=== PATIENT | male | born 1955 | race Caucasian/White ===

== ENCOUNTER 2024-03-16 08:35 | Day surgery (SDC) | payer MEDICARE, SELFPAY ==
[2024-03-16] VITALS (8 sets, daily range): BP systolic 96–151; BP diastolic 49–94; BMI 31.6
[2024-03-16] MEDS: NSS 283 ML IV (09:10)
--- NOTE | 2024-03-16 10:29 | ITS.CL.CATH ---
[facility] - Catheterization
Cardiac Catheterization
Procedure Report:
CARDIAC CATHETERIZATION REPORT
Date of Procedure: 03/16/2024
Referring: John Mckeon DO
Indication: Severe symptomatic aortic stenosis
HEMODYNAMIC DATA
AO: 100/64
LV: Not done
LEFT VENTRICULOGRAPHY: Not done
CORONARY ANGIOGRAPHY
Dominance: Right
Left Main: Normal
LAD: There is a patent proximal LAD stent (2010) with mild in-stent stenosis approximately 20-30% in severity. The remainder of the LAD system has trivial luminal disease
Circumflex: Trivial luminal irregularities
RCA: Large dominant mildly ectatic vessel with mild luminal irregularities
Closure Device: None-the procedure was performed via the right radial artery. The Jorge's test was normal prior to the procedure.
Radiation (mGy): 336
DAP (cm2.Gy): 33.1
Fluoroscopy time: 2.9 minutes
CONCLUSIONS
1: Known symptomatic severe aortic stenosis not invasively evaluated
2: Patent proximal LAD stent (2010) with mild residual CAD
3. AVR is recommended. This patient would be a candidate for SAVR or TAVR. He expressed in the office a desire to minimize the possibility of needing permanent pacemaker placement. His baseline ECG has bifascicular block and I suggested that the
likelihood of requiring a permanent pacemaker with TAVR are approaches 50% and is likely higher with this approach then with SAVR. He will see CT surgery to discuss treatment options.
Copy to: John Mckeon DO, Daniel Nick DO
Faustino Walker MD, [facility], [facility]
[2024-03-16] MEDS: NSS 1000 IV (11:11)
== END 2024-03-16 13:05 | disposition home or self-care (01) ==
LOC: CATH 08:35
PROVIDERS: ATTENDING PHYSICIAN Internal Medicine Cardiovascular Disease; CONSULT PHYSICIAN Thoracic Surgery (Cardiothoracic Vascular Surgery); FAMILY PHYSICIAN Student in an Organized Health Care Education/Training Program; OTHER PHYSICIAN Internal Medicine Cardiovascular Disease
DX: I35.0 Nonrheumatic aortic (valve) stenosis (principal); I25.10 Atherosclerotic heart disease of native coronary artery without angina pectoris; I48.0 Paroxysmal atrial fibrillation; I45.2 Bifascicular block; Z79.82 Long term (current) use of aspirin
CPT/HCPCS: 93005; 93454; C1894; Q9967

== ENCOUNTER 2024-04-28 05:09 | Inpatient (IN) | payer MEDICARE, SELFPAY ==
[2024-04-13 08:17] VITALS: BMI 32.8
[2024-04-13 09:02] LABS: % Basophils 0.7 % (0-2); % Eosinophils 6.3 % (0-6); % Immature Granulocytes 0.2 % (0-0.5); % Lymphocytes 35.2 % (20.5-51.1); % Neutrophils 48.6 % (42.2-75.2); Absolute Eosinophils 0.4 10^3/uL (0-0.7); Absolute Monocytes 0.5 10^3/uL (0.1-0.6); Absolute Neutrophils 2.7 10^3/uL (1.4-6.5); Hematocrit 38.7 % (39.0-52.0); Hemoglobin 14.2 g/dL (13.0-18.0); Mean Corp Hgb Conc. 36.7 g/dL (33.0-37.0); Mean Corpuscular Hgb 32.6 pg (27.0-31.0); Mean Corpuscular Volume 88.8 fL (80.0-94.0); Mean Platelet Volume 8.9 fL (7.4-10.4); Nucleated Red Blood Cells % 0 % (-); Platelet Count 193 10^3/uL (130-400); Red Blood Cell Count 4.36 10^6/uL (4.70-6.10); Red Cell Dist. Width 12.8 % (11.5-14.5); White Blood Cell Count 5.6 10^3/uL (4.8-10.8)
[2024-04-13 09:13] LABS: APTT 33.1 Sec (23.4-35.0); INR 1.02; PT 13.2 Sec (11.4-14.6)
[2024-04-13 09:31] LABS: Urine Albumin Negative (Neg - Trace); Urine Bilirubin Negative (Negative); Urine Character Clear (Clear); Urine Color Yellow; Urine Glucose Negative (Negative); Urine Ketone Negative (Negative); Urine Leukocyte Negative (Negative); Urine Nitrite Negative (Negative); Urine Occult Blood 3+ (Negative); Urine Specific Gravity 1.025 (<1.030); Urine Urobilinogen Negative (Neg - 1+)
[2024-04-13 10:08] LABS: Urine Urothelial Cell 0-2 /LPF (FEW)
[2024-04-13 10:09] LABS: Urine Bacteria Few (Negative); Urine Red Blood Cell 16-20 /HPF (0-2)
[2024-04-13 10:11] LABS: Glycohemoglobin (HgbA1c) 5.6 % (4.0-5.6)
--- NOTE | 2024-04-13 10:11 | CM ---
Chart reviewed. Met with the patient in PAT, reviewed preoperative and postoperative instructions and restrictions. Gave patient 2 soaps, along with showering guidelines. Patient is agreeable to a home visit by CT Transitional RN. Patient is
independent of ADLS, lives with his in a 1 S[address], 1 GABRIELA, 0 DME. Plan is for the patient to return home with CT Transitional RN.
[2024-04-13 12:14] LABS: ALT (SGPT) 29 U/L (0-50); AST (SGOT) 28 U/L (17-59); Albumin 4.4 g/dl (3.5-5.0); Alkaline Phosphatase 59 U/L (38-126); Blood Urea Nitrogen 17 mg/dl (9-20); Calcium 9.5 mg/dl (8.4-10.2); Carbon Dioxide 27 mmol/L (22-30); Chloride 106 mmol/L (98-107); Direct Bilirubin 0.2 mg/dl (0.0-0.4); Estimated Creatinine Clearance 83 ml/min; Glucose 108 mg/dl (70-99); Potassium 4.6 mmol/L (3.5-5.1); Sodium 139 mmol/L (135-145); Total Bilirubin 0.7 mg/dl (0.2-1.3); Total Protein 7.5 g/dl (6.3-8.2); eGFR > 60.00
[2024-04-28] VITALS (9 sets, daily range): BP systolic 95–126; BP diastolic 58–74; BMI 32.2
[2024-04-28] MEDS: MAGNESIUM OXIDE 500 MG PO (06:09)
[2024-04-28] MEDS: LOPRESSOR 25 MG PO (06:09)
[2024-04-28] MEDS: BACTROBAN 2% OINTMENT 1 APPLIC NASAL ×2 (06:09→20:37)
[2024-04-28] MEDS: PROTONIX 40 MG PO (06:09)
[2024-04-28 07:53] LABS: ACT+ - POC 93 Seconds (82-134)
[2024-04-28 08:31] LABS: Urine Albumin Trace (Neg - Trace); Urine Bilirubin Negative (Negative); Urine Character Clear (Clear); Urine Color Yellow; Urine Glucose Negative (Negative); Urine Ketone Negative (Negative); Urine Leukocyte Negative (Negative); Urine Nitrite Negative (Negative); Urine Occult Blood 4+ (Negative); Urine Specific Gravity 1.025 (<1.030); Urine Urobilinogen Negative (Neg - 1+)
--- NOTE | 2024-04-28 08:45 | CM ---
Patient in OR today.
Reviewed initial assessment. Pt. resides w/ spouse in a private, 1 story home. Functionally, patient is indep. w/ ADLs, mobility without any assisted device.
Antic. DC plan is for home w/ CT Transitional Care RN.
CM to follow.
[2024-04-28 09:15] LABS: Urine Mucus Moderate
[2024-04-28 09:17] LABS: Urine Amorphous Seen; Urine Red Blood Cell 26-30 /HPF (0-2); Urine Squamous Cell 0-2 /LPF (Few); Urine White Cell 0-2 /HPF (0-5)
[2024-04-28 10:05] LABS: ACT+ - POC 535 Seconds (82-134)
[2024-04-28 10:43] LABS: B.E. - POC 2.3 mmol/L; Glucose - POC 105 mg/dl (65-99); HCO3 - POC 28 mmol/L (21-29); Hematocrit - POC 36 % PCV (42-52); Hemodilution- POC No; Hemoglobin Calculated - POC 12.2; Ionized Calcium - POC 1.34 mmol/L (1.12-1.27); O2 Saturation %Calculated-POC 99.9 5 (92-96); PCO2 - POC 50 mmHg (35-45); PO2 - POC 364 mmHg (80-100); POC Comment PRE; Sodium - POC 144 mmol/L (135-145); pH - POC 7.37 (7.35-7.45)
[2024-04-28 10:54] LABS: ACT+ - POC 535 Seconds (82-134)
[2024-04-28 11:13] LABS: B.E. - POC 3.9 mmol/L; Glucose - POC 151 mg/dl (65-99); HCO3 - POC 28 mmol/L (21-29); Hematocrit - POC 28 % PCV (42-52); Hemodilution- POC Yes; Hemoglobin Calculated - POC 9.6; Ionized Calcium - POC 1.09 mmol/L (1.12-1.27); O2 Saturation %Calculated-POC 99.9 5 (92-96); PCO2 - POC 40 mmHg (35-45); PO2 - POC 265 mmHg (80-100); POC Comment CPB; Potassium - POC 5.4 mmol/L (3.6-5.0); Sodium - POC 140 mmol/L (135-145); pH - POC 7.45 (7.35-7.45)
[2024-04-28 11:22] LABS: ACT+ - POC 489 Seconds (82-134)
[2024-04-28 11:45] LABS: B.E. - POC 3.1 mmol/L; Glucose - POC 210 mg/dl (65-99); HCO3 - POC 28 mmol/L (21-29); Hematocrit - POC 28 % PCV (42-52); Hemodilution- POC Yes; Hemoglobin Calculated - POC 9.5; Ionized Calcium - POC 1.09 mmol/L (1.12-1.27); O2 Saturation %Calculated-POC 99.6 5 (92-96); PCO2 - POC 41 mmHg (35-45); PO2 - POC 173 mmHg (80-100); POC Comment CPB; Potassium - POC 5.7 mmol/L (3.6-5.0); Sodium - POC 140 mmol/L (135-145); pH - POC 7.44 (7.35-7.45)
[2024-04-28 12:01] LABS: ACT+ - POC 579 Seconds (82-134)
[2024-04-28 12:55] LABS: B.E. - POC 1.6 mmol/L; Glucose - POC 177 mg/dl (65-99); HCO3 - POC 27 mmol/L (21-29); Hematocrit - POC 32 % PCV (42-52); Hemodilution- POC Yes; Hemoglobin Calculated - POC 10.9; Ionized Calcium - POC 1.16 mmol/L (1.12-1.27); O2 Saturation %Calculated-POC 99.7 5 (92-96); PCO2 - POC 43 mmHg (35-45); PO2 - POC 195 mmHg (80-100); POC Comment CPB; Potassium - POC 4.1 mmol/L (3.6-5.0); Sodium - POC 143 mmol/L (135-145)
[2024-04-28 12:57] LABS: ACT+ - POC 112 Seconds (82-134)
[2024-04-28 13:25] LABS: B.E. - POC -1.4 mmol/L; Glucose - POC 91 mg/dl (65-99); HCO3 - POC 24 mmol/L (21-29); Hematocrit - POC 27 % PCV (42-52); Hemodilution- POC No; Hemoglobin Calculated - POC 9.2; Ionized Calcium - POC 1.49 mmol/L (1.12-1.27); PCO2 - POC 39 mmHg (35-45); PO2 - POC 492 mmHg (80-100); POC Comment POST; Potassium - POC 3.3 mmol/L (3.6-5.0); Sodium - POC 145 mmol/L (135-145); pH - POC 7.39 (7.35-7.45)
--- NOTE | 2024-04-28 13:32 | W.CVOR.SURPR ---
CVOR Surgeon Immed Pre Op
-
I have examined this patient prior to performance of the scheduled procedure.
The patient's condition is unchanged from the time of the dictated/written History and
Physical and the patient is able to undergo the scheduled procedure.
--- NOTE | 2024-04-28 13:33 | W.IMMPOSTOP ---
Addendum entered and electronically signed by Brandon Kemp MD 04/28/24 14:19:
[id number]
Original Note:
Surgical Immed Post Op Note
-
CARDIAC SURGERY OPERATIVE NOTE:
Preoperative Dx:
Severe aortic stenosis (P/M: 85/43, PRITESH 0.7)
Single vessel CAD w/ Hx of prior LAD stent
Hx of AF
Postoperative Dx:
Same
Procedures:
1) Median sternotomy
2) Takedown of MERCEDES (narrow pedicle)
3) CABG x 1 (MERCEDES-to-LAD)
4) ELAA (35mm AtriClip)
5) AVR (#23 Inspiris Resilia)
Surgeon:
Brandon Kemp M.D.
Assistants:
Mona ReedADuyen-Alexandro; healthcare administrative assistant throughout; closure
Mona BernardoADuyen-Alexandro; closure ([id number])
Perfusion:
Daniel Mckay, C.C.P.; CCx: 110min, CPB: 136min
Anesthesia:
Michael Bradshaw M.D. and Aston VázquezN.A.
Findings:
MERCEDES was good quality vessel w/ very brisk blood flow, ELD 2.5mm
LAD was visible on epicardial surface w/ serpentine course and scattered calcifications, ELD 2.85mm
ABRAHAM was small and of windsock morphology
AV functionally bicuspid w/ calcific fusion of non- and right- cusps, left cusp also w/ gugjjmuo-[id number]-jogeu calcifications, moderate annular extension of calcifications, no sig subvalvular calcifications
AVR w/ #23 Inspiris secured w/ 13 interrupted, pledgeted valve sutures and the CorKnots
Post-MICHELLE w/ normal biventricular function, well-seated AVR w/o PVL/AI, mean gradient 5mmHg under GA, ELAA confirmed
Implants:
[employer] INSPIRIS RESILIA 23mm valve; SN [id number]
AtriClip 35mm; LOT [id number]
Epicardial V-wires x 2
CT x 3 (left pleural, inferior mediastinal, superior mediastinal)
Sternal wires x 7
Sternal 'X' plate w/ 4 - 16mm and 4 - 14mm screws
Complications:
None
Transfusions:
None
Condition:
65 sinus w/ isoelectric STs. 120/75. 43/26. CVP: 22. 98%
GTTS: insulin 0.5, precedex 0.5, levophed 4
Stable/guarded to CVICU
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
[2024-04-28 14:11] LABS: Glucose - Point of Care 103 mg/dl (70-99)
[2024-04-28] MEDS: TYLENOL PO (14:16)
[2024-04-28] MEDS: ANCEF 10 IV ×2 (14:16)
[2024-04-28 14:17] LABS: Hematocrit 26.4 % (39.0-52.0); Hemoglobin 9.7 g/dL (13.0-18.0); Platelet Count 133 10^3/uL (130-400)
[2024-04-28] MEDS: NSS 500 IV (14:17)
[2024-04-28] MEDS: ALBUMIN 5% 250 IV (14:20)
[2024-04-28 14:21] LABS: HCO3 23.1 mmol/L (21-28); Ionized Calcium 1.23 mMOL/L (1.15-1.33); PCO2 40 mmHg (35-48); PO2 278 mmHg (83-108); Potassium 3.6 mMOL/L (3.5-5.1); Sodium 139 mMOL/L (136-145); pH 7.37 (7.35-7.45)
[2024-04-28 14:23] LABS: Mixed Venous O2 Saturation 74.2 %
[2024-04-28 14:30] LABS: INR 1.34; PT 16.6 Sec (11.4-14.6)
[2024-04-28 14:31] LABS: APTT 33.4 Sec (23.4-35.0)
[2024-04-28 14:37] LABS: Blood Urea Nitrogen 15 mg/dl (9-20); Estimated Creatinine Clearance 82 ml/min; Glucose 96 mg/dl (70-99); Magnesium 2.1 mg/dl (1.6-2.3)
[2024-04-28] MEDS: KCL 50 IV (14:56)
--- NOTE | 2024-04-28 15:00 | PTCARENOTE ---
pt received from CVOR @~1405, sedated on Precedex gtt, RASS -5. core temp 96.9F, bear hugger applied as ordered. pt SR w/ RBBB on the monitor, HR 60s. V wire in place, pacer box off per Dr. Kemp. SBP 70s on arrival to unit, Levophed gtt titrated
as ordered, Albumin x1 given as ordered. PAP 30s/10s, CVP ~11-14. CI 1.78. palpable pulses. pt mechanically ventilated, ETT #8.0, 23cm@lip. SIMV 14, TV 500, PEEP 5, PS 5, FIO2 60%. 100% POX. lungs coarse anteriorly, suctioned for moderate thin clear
secretions via ETT and orally. oral hygiene completed. CTx3, no air leak or crepitus noted. pt abdomen s/n, hypoactive BS. Oakley in place, clear yellow urine. Oakley care provided. sternal dressing c/d/i. chest tube site c/d/i. RIJ cordis/hectoran
maintained. L radial [place] flushed, zeroed, and calibrated. PIV. insulin gtt running per protocol. lab work drawn, EKG performed, CXR completed. see worklist for VS, I&O, and assessment.
[2024-04-28 15:10] LABS: Glucose - Point of Care 139 mg/dl (70-99)
[2024-04-28] MEDS: NEURONTIN PO (15:35)
[2024-04-28] MEDS: PACERONE PO ×2 (15:35→22:08)
[2024-04-28 16:00] LABS: Glucose - Point of Care 119 mg/dl (70-99)
[2024-04-28] MEDS: LIPITOR PO (16:27)
[2024-04-28 16:56] LABS: Glucose - Point of Care 104 mg/dl (70-99)
[2024-04-28] MEDS: ZOFRAN 4 MG IV (17:41)
[2024-04-28] MEDS: DILAUDID 0.5 MG IV (17:41)
--- NOTE | 2024-04-28 17:45 | PTCARENOTE ---
Addendum entered by Brianna Reyes RN 04/28/24 18:42:
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
Original Note:
pt able to nod appropriately, KIM, follow commands. CPOT 7, nods head yes to pain, received PRN Dilaudid 0.5mg IVP. pt nodded head yes to nausea, received PRN Zofran as ordered. oral hygiene performed.
[2024-04-28 17:56] LABS: Glucose - Point of Care 109 mg/dl (70-99)
--- NOTE | 2024-04-28 18:00 | W.PN.CD ---
Today's Communication / Plan
-
wean drips and vent
trend tele
Impression / Plan
-
69 yo male with CAD and aortic stenosis, prior paroxysmal A fib s/p PVI 2013 and no longer on OAC; admitted following CABG x1, bio-AVR, AtriClip today (04/28/24).
# CABG x1, bio-AVR, AtriClip today
-rhythm is sinus on EKG and tele, with RBBB
-MICHELLE: EF 60-65%
-cont ASA, plavix, statin, metoprolol
-wean drips and vent
# Paroxysmal A fib s/p PVI 2013
-not on OAC as outpatient
Physical Exam
Vital Signs/Labs
Vital Signs
Temp Pulse Resp BP Pulse Ox
98.1 F 68 14 103/63 98
04/28/24 17:00 04/28/24 17:00 04/28/24 17:00 04/28/24 16:00 04/28/24 17:00
04/27/24 04/28/24 04/29/24
06:59 06:59 06:59
Actual Weight 93.1 kg
04/28/24 13:57
PT 16.6 Sec (11.4-14.6) H 04/28/24 13:57
INR 1.34 04/28/24 13:57
APTT 33.4 Sec (23.4-35.0) 04/28/24 13:57
Magnesium 2.1 mg/dl (1.6-2.3) 04/28/24 13:57
Physical Exam
Constitutional: Other (intubated)
EENT: Moist mucous membranes
Cardiovascular: Rhythm & rate is regular, Pedal edema is absent, JVD pressure is normal and Systolic murmur absent
Respiratory: Other (mechanical ventilation)
Data Reviewed
-
Date of Service: April 28, 2024
EKG: Tracing Personally Visualized and interpreted (EKG: NSR, RBBB, left axis) and Other (Tele: SR 70s)
Echo: Report Reviewed by me
Labs: Labs Reviewed by me
[2024-04-28 18:19] LABS: Hematocrit 27.2 % (39.0-52.0); Platelet Count 153 10^3/uL (130-400)
[2024-04-28 19:02] LABS: Glucose - Point of Care 100 mg/dl (70-99)
--- NOTE | 2024-04-28 19:25 | PTCARENOTE ---
Received pt from jono RN. Pt intubated and sleepy. Pt able to open eyes and follow commands appropriately. Pt KIM. Pt SR w/ R BBB on the tele monitor. HR 70s. Temporary epicardial v-wire intact and connected to box with box turned OFF. BP
110s/70-70s. PAP 30s/teens. CVP 11-12. CI: 2.19 CO: 4.46 SVR: 1,004. Pt ETT #8, 22cm @ right lip. See worklist for full vent settings. Lung sounds audible throughout. POX 99-100%. Mediastinal CTx2 and left pleural CT intact and to -20 suction. No
air-leak or tidaling noted at this time. CT dressing CDI. Oakley catheter CDI and draining yellow urine. Hypoactive BS. Denies nausea at this time. Sternal Aquacel CDI. Right IJ cordis w/ swan CDI. Left radial a-line CDI. All lines leveled, zeroed,
and flushed. Levo infusing as ordered. Glycemic protocol followed. See worklist for fulling nursing assessment and interventions.
--- NOTE | 2024-04-28 19:30 | PTCARENOTE ---
Pt breathing over vent. Pt placed to CPAP by respiratory therapist. POX remains at 99%.
[2024-04-28 20:06] LABS: B.E. -2.7 mmol/L; HCO3 23.2 mmol/L (21-28); PCO2 44 mmHg (35-48); PO2 132 mmHg (83-108); Potassium 4.5 mMOL/L (3.5-5.1); pH 7.33 (7.35-7.45)
--- NOTE | 2024-04-28 20:25 | PTCARENOTE ---
Blood gas drawn and sent. Per CTPA - extubate pt. Pt extubated by respiratory therapy to 6 L NC. POX 100%. IS 1000. Pt AAOx3. VSS.
[2024-04-28] MEDS: LOW STRENGTH ASPIRIN 81 MG PO (20:37)
[2024-04-28] MEDS: ANCEF 5 IV (20:37)
[2024-04-28] MEDS: SENOKOT-S PO (20:38)
[2024-04-28 20:57] LABS: Glucose - Point of Care 121 mg/dl (70-99)
[2024-04-28] MEDS: DILAUDID 0.25 MG IV (21:07)
[2024-04-28] MEDS: NEURONTIN 100 MG PO (22:08)
[2024-04-28] MEDS: TYLENOL 1000 MG PO (22:08)
[2024-04-28 23:19] LABS: Glucose - Point of Care 116 mg/dl (70-99)
[2024-04-28] MEDS: FLEXERIL 5 MG PO (23:26)
[2024-04-29] VITALS (40 sets, daily range): BP systolic 75–137; BP diastolic 42–98; PULSE 71; O2SAT 98–99; BMI 33.1
[2024-04-29] MEDS: DILAUDID 0.5 MG IV (00:07)
--- NOTE | 2024-04-29 00:30 | PTCARENOTE ---
No acute changes in assessment. Pt SR w/ R BBB on the monitor. HR 70s. BP stable. Levo infusing as ordered. CI: 2.04. CO: 4.16. [place] and a-line maintained. All lines leveled, zeroed, and flushed. CTx3 intact, to -20 suction, no airleak/tidaling
noted, and output WNL. Sternal Aquacel CDI. Pt c/o pain - see NOV. Pt repositioned in bed. Glycemic protocol followed. Oakley catheter CDI and draining yellow urine. Call diaz within reach.
[2024-04-29 01:03] LABS: Glucose - Point of Care 108 mg/dl (70-99)
[2024-04-29 03:15] LABS: Glucose - Point of Care 103 mg/dl (70-99)
[2024-04-29 03:31] LABS: Hematocrit 25.8 % (39.0-52.0); Hemoglobin 9.5 g/dL (13.0-18.0); Mean Corp Hgb Conc. 36.8 g/dL (33.0-37.0); Mean Corpuscular Hgb 32.4 pg (27.0-31.0); Mean Corpuscular Volume 88.1 fL (80.0-94.0); Platelet Count 147 10^3/uL (130-400); Red Blood Cell Count 2.93 10^6/uL (4.70-6.10); Red Cell Dist. Width 12.9 % (11.5-14.5); White Blood Cell Count 13.1 10^3/uL (4.8-10.8)
[2024-04-29 03:59] LABS: Blood Urea Nitrogen 18 mg/dl (9-20); Calcium 8.5 mg/dl (8.4-10.2); Carbon Dioxide 26 mmol/L (22-30); Chloride 108 mmol/L (98-107); Estimated Creatinine Clearance 92 ml/min; Glucose 107 mg/dl (70-99); Magnesium 1.8 mg/dl (1.6-2.3); Potassium 4.4 mmol/L (3.5-5.1); Sodium 138 mmol/L (135-145); eGFR > 60.00
[2024-04-29] MEDS: ANCEF 5 IV ×2 (04:16→12:50)
[2024-04-29] MEDS: MAGNESIUM SULFATE 50 IV (04:30)
--- NOTE | 2024-04-29 04:37 | W.PN.CT ---
Addendum entered and electronically signed by Brandon Kemp MD 04/29/24 06:17:
I saw and examined the patient.
The PA's note was reviewed and I agree with the note.
Comment:
Doing well postop day 1 status post AVR, CABG x 1, and exclusion of left atrial appendage
Out of bed, I-S, ambulate later
Maintain chest tubes
De-line
DC Oakley
Original Note:
Today's Communication / Plan
-
-pod#1
-no significant issues overnight, had 5 beat NSVT (asymptomatic)
-CI 2.11, CO 4.30. Drips: Insulin only. Levo is off@ 3:30am
-CT output: 2 meds 150/430, L pleur 135/215 in 12/24 hrs
-deline
-d/c Oakley. Monitor UO (hx BPH)
-d/c insulin
-current meds (ASA, Plavix, Amio, Lipitor, Protonix). Hold BB while on Levo
-encourage IS, OOB
Assessment / Plan
-
- Severe / CAD - s/p AVR (#23 Inspiris Resilia); CABG x 1 (MERCEDES-to-LAD); ELAA (35mm AtriClip) on 04/28/[address] Kemp, pod #1
- Post-MICHELLE w/ normal biventricular function, well-seated AVR w/o PVL/AI, mean gradient 5mmHg under GA, ELAA confirmed
- CAD - s/p LAD stent 2010
- Paroxysmal a-fib - s/p ablation 2013
- Loop recorder
- Bifascicular block
- HTN/HLD
- DEE stenosis
- BPH
- Nephrolithiasis
- Gout
- Acute postop blood loss anemia - stable, no transfusion
- Acute postop atelectasis
Discussed patient care with: Nursing and Care Team
Subjective
Procedure
- s/p AVR (#23 Inspiris Resilia); CABG x 1 (MERCEDES-to-LAD); ELAA (35mm AtriClip) on 04/28/[address] Kemp
-
Date of Service: April 29, 2024
Objective Data
-
PT 16.6 Sec (11.4-14.6) H 04/28/24 13:57
INR 1.34 04/28/24 13:57
APTT 33.4 Sec (23.4-35.0) 04/28/24 13:57
Vital Signs
Vital Signs
Temp Pulse Resp BP Pulse Ox
98.8 F 77 16 112/71 100
04/29/24 01:00 04/29/24 01:00 04/29/24 01:00 04/29/24 01:00 04/29/24 01:00
CT Intake/Output/Weight
04/28/24 04/28/24 04/29/24
06:59 18:59 06:59
Intake Total 599.0 / 880.5 281.5 / 880.5
Output Total 630 / 1255 625 / 1255
Balance -31.0 / -374.5 -343.5 / -374.5
SaO2: 100
Physical Exam
-
General: Awake
Cardiovascular: Regular rate & rhythm, No Murmurs and No Rub
Respiratory: Decreased Breath Sounds
Sternum: Stable
Incision: Clean, Dry and Intact
Extremities: Edema +1 (DPs 1+ b/l)
Abdomen: soft, nondistended, nontender, + decreased BS
Data Reviewed
-
Lab Results: Results Reviewed
Medications: Active Meds Reviewed
Chest X-Ray: Report Reviewed and Image Reviewed
ECG: Report Reviewed and Image Reviewed
[2024-04-29 04:40] LABS: Hepatitis C Antibody Negative (Negative)
[2024-04-29] MEDS: TYLENOL 1000 MG PO ×3 (05:11→22:44)
[2024-04-29] MEDS: ROXICODONE 5 MG PO ×4 (05:11→20:27)
--- NOTE | 2024-04-29 05:48 | PTCARENOTE ---
Pt remains SR w/ R BBB on the tele monitor. HR 60-70s. BP stable. Levo titrated OFF. Pt on 2 L NC. POX 100%. CT assessment unchanged. Pt swan and a-lined DC'd per CTPA. Sternal Aquacel CDI. Glycemic protocol followed. See MAR for pain medication
administration. Call diaz within reach.
--- NOTE | 2024-04-29 07:45 | W.PN.ANS.POP ---
Anesthesia Post Operative
- Anesthesia Post Op Note
Vital Signs Stable-See Nursing Note: Yes
Airway Patent: Yes (2L/min NC)
Adequate Pain Control: Yes
Change in Mental Status: No
Current Postoperative Nausea & Vomiting: No
Anesthesia Complications: No
General Anesthetic Recall: No
Unplanned Admission: No
Post Op Hydration Adequate: Yes (tolerating POs)
--- NOTE | 2024-04-29 07:50 | W.PN.CD ---
Today's Communication / Plan
-
Looks absolutely fabulous POD#1 after AVR
Impression / Plan
-
69 yo male with CAD and aortic stenosis, prior paroxysmal A fib s/p PVI 2013 and no longer on OAC; admitted following CABG x1, bio-AVR, AtriClip today (04/28/24).
# CABG x1, bio-AVR, AtriClip 04-28
-rhythm is sinus on EKG and tele, with RBBB. So far no need for PPM which was very important in his decision to have SAVR as TAVR PPM risk 40+% (RBBB/LAHB)
-MICHELLE: EF 60-65%
-cont ASA, plavix, statin, metoprolol
-encouraged incentive spirometry
# Paroxysmal A fib s/p PVI 2013
-not on OAC as outpatient
Physical Exam
Vital Signs/Labs
Vital Signs
Temp Pulse Resp BP Pulse Ox
98 F 72 18 111/98 97
04/29/24 07:47 04/29/24 07:00 04/29/24 07:47 04/29/24 06:21 04/29/24 07:47
04/28/24 04/29/24 04/30/24
06:59 06:59 06:59
Actual Weight 205 lb 4.006 oz 210 lb 15.718 oz
04/29/24 03:14
04/29/24 03:14
PT 16.6 Sec (11.4-14.6) H 04/28/24 13:57
INR 1.34 04/28/24 13:57
APTT 33.4 Sec (23.4-35.0) 04/28/24 13:57
Magnesium 1.8 mg/dl (1.6-2.3) 04/29/24 03:14
Physical Exam
Constitutional: No acute distress and Comfortable
EENT: Anicteric
Cardiovascular: Rhythm & rate is regular, Systolic murmur absent, S1S2 is normal and Murmur/rub/gallop absent
Respiratory: Respiratory effort normal, Wheeze Absent, Crackles Absent and Rhonchi Present
GI: Soft and Non tender
Neuro/Psych: AO x 3 and Motor deficits absent
Data Reviewed
-
Date of Service: April 29, 2024
--- NOTE | 2024-04-29 08:00 | PTCARENOTE ---
pt received from previous RN, oriented x4, OOB in chair. SR w/ RBBB on the monitor, HR 60-70s. V wire in place, pacer box off per Dr. Kemp. SBP 100-110s. palpable pulses. pt on 2LNC, 97% POX. lungs clear, diminished in bases. IS encouraged. CTx3,
no air leak or crepitus noted. pt abdomen s/n, +BS. Oakley in place, clear yellow urine. Oakley care provided. Oakley dc'd as ordered. sternal dressing c/d/i. chest tube site c/d/i. RIJ cordis maintained. PIV. insulin gtt running per protocol. see
worklist for VS, I&O, and assessment.
[2024-04-29] MEDS: LOW STRENGTH ASPIRIN 81 MG PO (08:46)
[2024-04-29] MEDS: PLAVIX 75 MG PO (08:46)
[2024-04-29] MEDS: SENOKOT-S 1 TABLET PO ×2 (08:47→20:18)
[2024-04-29] MEDS: BACTROBAN 2% OINTMENT 1 APPLIC NASAL ×2 (08:47→20:17)
[2024-04-29] MEDS: FLEXERIL 5 MG PO (08:47)
[2024-04-29] MEDS: PROTONIX 40 MG PO (08:47)
[2024-04-29] MEDS: MAGNESIUM OXIDE 500 MG PO ×2 (08:47→20:17)
[2024-04-29] MEDS: NEURONTIN 100 MG PO ×3 (08:47→22:44)
[2024-04-29] MEDS: PACERONE 200 MG PO ×3 (08:50→23:02)
[2024-04-29] MEDS: LIDOCAINE 4% PATCH 1 PATCH TOPICAL (08:50)
[2024-04-29 08:57] LABS: Glucose - Point of Care 115 mg/dl (70-99)
[2024-04-29 08:57] LABS: Glucose - Point of Care 101 mg/dl (70-99)
[2024-04-29 09:00] LABS: Glucose - Point of Care 93 mg/dl (70-99)
--- NOTE | 2024-04-29 09:39 | W.PN.INTV ---
Today's Communication / Plan
Recommendations
Up OOB as tolerated
Pain control
Wean off insulin drip
Maintain BG goal 140�180
MAP >65
Keep K>4, Mg>[address] chest in 1 year for small pulmonary nodules - he will go through his PCP for this. [facility] pulmonary office information told to the patient in case he does want to see us instead.
Insulin drip currently being weaned off with plans to stop this afternoon. Once off insulin drip, he will be transferred to CVICU�telemetry status. Once transferred then we will sign off. Please re-consult if there are any additional
questions/concerns, or if patient's respiratory status deteriorates.
Assessment
-
Assessment: 69-year-old male non-smoker with a past medical history of CAD s/p stent to LAD (2010), gout, hypercholesterolemia, history of A-fib s/p PVI (2013), severe aortic stenosis, right carotid artery stenosis, bifascicular block, BPH,
nephrolithiasis, and indigestion who presents with elective SAVR + CABG. Patient known to cardiothoracic surgery with Dr. Kemp, last office visit on 03/23/2024. He has known severe aortic stenosis with in-stent stenosis of his proximal LAD stent.
Surgical revascularization + CABG was reviewed including its risks and benefits. Patient agreed to intervention. Today he underwent CABG x 1 with MERCEDES to LAD, AVR with #23 Inspiris Resilia + left atrial appendage exclusion. There were no
complications. And he was transferred to the ICU hemodynamically stable with BP 120/75 on Levophed at 4mcg/min. Critical care services consulted for additional management/recommendations.
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
hypertension, nephrolithiasis, BPH
Impression:
#Severe aortic stenosis s/p surgical aortic valve replacement (POD #1)
#Single-vessel CAD with in-stent restenosis of prior LAD stent s/p CABG x 1 (POD#1)
#History of atrial fibrillation s/p left atrial appendage exclusion using 35mm AtriClip (POD #1)
#Bifascicular block
#Multiple tiny pulmonary nodules in RLL + LLL with scarring seen in the medial right lower lobe
#Right carotid artery stenosis
#Hypertension
#BPH
Plan:
Patient successfully extubated to nasal cannula on the evening of 04/28
Continue with supplemental oxygen and titrate to maintain SpO2 >90-94%
prn nebulized bronchodilators
Removal of R-IJ cordis per CT surgery
Maintain MAP>65
Replete electrolytes with K>4, Mg>2
Monitor chest tube output (left pleural + mediastinal chest tubes x 2)
Monitor hemoglobin
Monitor platelet count and coags
Transfuse blood product if needed to maintain Hb>7g/dL, plt>50k (given post-operative status)
CT surgery managing chest tubes
Monitor blood sugar to maintain euglycemia with goal BG 140-180
Insulin drip per protocol --> plan to be stopped this afternoon
Aspiration precautions
Pain control
DVT prophylaxis
Early nutrition
Early mobilization
He has a very small 2 mm posteromedial RLL nodule (radiologist says calcified granuloma however it measures -254 HU, and also small 2 mm lateral nodule seen in the LLL. He does not have a history of tobacco use (does endorse 2nd hand smoke exposure
from both his parents), he denies a personal history of malignancy; mother had lung cancer, but she was a smoker. Can consider repeat CT chest in 1 year - he will have his PCP follow up on this. I offered to have us see him in the [facility] office - he
would rather have his PCP follow this up.
Insulin drip currently being weaned off with plans to stop this afternoon. Once off insulin drip, he will be transferred to CVICU�telemetry status. Once transferred then we will sign off. Thank you for allowing us to be involved in the care of
this patient. Please re-consult if there are any additional questions/concerns, or if patient's respiratory status deteriorates.
Total time spent today was 75 minutes for this encounter. Time includes reviewing laboratory test/imaging results, reviewing pertinent medical records, obtaining and reviewing medical history, performing an appropriate exam, ordering medications,
tests and procedures. Time also includes documentation of this encounter, coordinating patient care and communicating with other healthcare professionals. Total time does not include separately billed tests performed on this date of service.
Subjective Dataa
Subjective Data
Date of Service:
Date of Service: April 29, 2024
Chief Complaint: Waste Duster Follow Up and Pulmonary Follow Up
Subjective:
Seen and evaluated today at bedside. Resting comfortably in chair, currently on 2 L/min nasal cannula saturating 99%. Heart rate 70 and BP 111/65. Currently on insulin drip at 0.6 units/hr. Left pleural chest tube + mediastinal chest tubes x [address] He feels well, has some post-operative chest pain but it is not worsening. Denies SOB, ALICIA, abdominal pain, nausea, vomiting, fevers or chills.
Review of Systems
General: Other (Negative unless mentioned above)
Objective Data
Data Reviewed
Vital Signs / I&O / Oxygen:
Vital Signs
Temp Pulse Resp BP Pulse Ox
98 F 77 16 137/73 97
04/29/24 07:47 04/29/24 09:00 04/29/24 09:00 04/29/24 09:00 04/29/24 09:00
Intake and Output
04/28/24 04/29/24 04/30/24
06:59 06:59 06:59
Intake Total 1049.7 / 1061.0 35.9 / 35.9
Output Total 1695 / 1750 125 / 125
Balance -645.3 / -689.0 -89.1 / -89.1
SaO2 [CPAP/PSV] 99
SaO2 [SIMV] 99
SaO2 97
Nasal Cannula flow liters per 2
minute
Physical Exam
General: Respiratory Distress (negative), Comfortable, Chills (negative) and Sweats (negative)
HEENT: Normocephalic, Anicteric and Moist Mucous Membranes
Cardiovascular: S1-S2 and Peripheral Edema (Trace lower extremity edema bilaterally)
Respiratory: Wheeze (negative), Crackles (negative), Rhonchi (negative) and Non-Labored Respirations
GI: Soft, Non Distended, Non Tender and Normal Bowel Sounds
Neurology: AO x 3 and Tremors (negative)
Skin: Warm, Dry, Cyanosis (negative) and Jaundice (negative)
Labs/Micro/Reports
Lab Data
04/29/24 03:14
04/29/24 03:14
Laboratory Results
04/28/24 04/28/24
13:57 20:00
PT 16.6 H
INR 1.34
APTT 33.4
pH 7.37 7.33 L
pCO2 40 44
pO2 278 H 132 H
HCO3 23.1 23.2
O2 Delivery Level
[2024-04-29 11:16] LABS: Glucose - Point of Care 114 mg/dl (70-99)
[2024-04-29] MEDS: CORDARONE 103 MG IV ×3 (12:50→20:06)
[2024-04-29] MEDS: TORADOL 15 MG IV ×2 (13:00→20:16)
--- NOTE | 2024-04-29 13:00 | PTCARENOTE ---
pt VSS, pt went into afib @1232, HR 80s-120s. pt denies lightheadedness or dizziness, +palpitations. 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 Amio bolus and gtt administered as ordered. Toradol given as ordered for pain.
[2024-04-29 13:07] LABS: Glucose - Point of Care 122 mg/dl (70-99)
[2024-04-29] MEDS: NSS IV (13:11)
[2024-04-29] MEDS: CORDARONE 518 MG IV (13:17)
[2024-04-29 14:09] LABS: Glucose - Point of Care 112 mg/dl (70-99)
--- NOTE | 2024-04-29 15:41 | CM ---
CM following for DC planning needs.
Patient POD#[address] Surg[address]
DC plan remains for home w/ CT Transitional Care RN.
CM to follow.
--- NOTE | 2024-04-29 16:30 | PTCARENOTE ---
pt VSS, no changes in assessment. resting in bed between care. Roxicodone 5mg PO given for pain. at bedside. 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 no urge to void.
[2024-04-29] MEDS: LIPITOR 80 MG PO (17:29)
[2024-04-29] MEDS: LOPRESSOR 25 MG PO (18:04)
[2024-04-29] MEDS: FLOMAX 0.4 MG PO (18:05)
--- NOTE | 2024-04-29 18:30 | PTCARENOTE ---
Amiodarone bolus given as ordered. Metoprolol PO and Flomax given as ordered. pt OOB to chair w/ assist. oral hygiene performed, face washed.
--- NOTE | 2024-04-29 19:30 | PTCARENOTE ---
Received pt from [facility]; pt is AAOx4; sinus tachycardia with brief episode of A-fib, HR 120's, b/p's 97/60, v-wires not pacing, + pulse, +1 generalized edema, lungs clear, diminished in bases, 2 medial C/T's, 1 pleural, dressing C/D/I; pt due to
void, - n/v; sternal incision dressing C/D/I, Cordis KVO, pt back to bed, resting.
[2024-04-29] MEDS: ALBUMIN 5% 250 IV (21:21)
[2024-04-29] MEDS: LANOXIN 500 MCG IV (23:03)
[2024-04-30] VITALS (38 sets, daily range): BP systolic 81–128; BP diastolic 54–86; PULSE 98; O2SAT 93–95; BMI 33.8
[2024-04-30] MEDS: LOPRESSOR 2.5 MG IV (01:05)
--- NOTE | 2024-04-30 01:15 | PTCARENOTE ---
pt AAOx3, no neurological deficits noted; Sinus Tach, HR 120's, Lanoxin 500 mcg IV now, given without difficulty per PA order, HR remains in 120's, Lopressor 2.5mg IV now, Pt resting in bed without difficulty,
[2024-04-30] MEDS: TORADOL IV (02:00)
[2024-04-30] MEDS: LANOXIN 250 MCG IV (03:18)
[2024-04-30 03:45] LABS: Hematocrit 23.8 % (39.0-52.0); Hemoglobin 8.7 g/dL (13.0-18.0); Mean Corp Hgb Conc. 36.6 g/dL (33.0-37.0); Mean Corpuscular Volume 90.2 fL (80.0-94.0); Mean Platelet Volume 9.4 fL (7.4-10.4); Platelet Count 110 10^3/uL (130-400); Red Blood Cell Count 2.64 10^6/uL (4.70-6.10); White Blood Cell Count 10.9 10^3/uL (4.8-10.8)
[2024-04-30 03:55] LABS: Blood Urea Nitrogen 31 mg/dl (9-20); Calcium 7.9 mg/dl (8.4-10.2); Carbon Dioxide 26 mmol/L (22-30); Chloride 99 mmol/L (98-107); Estimated Creatinine Clearance 53 ml/min; Glucose 156 mg/dl (70-99); Magnesium 2.2 mg/dl (1.6-2.3); Potassium 4.8 mmol/L (3.5-5.1); Sodium 134 mmol/L (135-145); eGFR 53.74
--- NOTE | 2024-04-30 04:29 | PTCARENOTE ---
Pt AAOx3, no neurological deficits; no c/o pain or discomfort; Lanoxin 250 mcg IV per PA order; am labs collected and sent, ecg completed, pt given CHG bath and linens changed, bladder scanned and void 400 of timo urine; CT dressing changed; pt OOB
to chair, standing scale wt 97.7 kg; portable chest x-ray in am; assessment and inventions as documented.
--- NOTE | 2024-04-30 04:48 | W.PN.CT ---
Addendum entered and electronically signed by Brandon Kemp MD 04/30/24 13:48:
I saw and examined the patient.
The PA's note was reviewed and I agree with the note.
Comment:
Postop day #2 status post AVR and coronary artery bypass grafting x 1 with concurrent exclusion of left atrial appendage
Looks well this morning. Out of bed to chair. No significant complaints. Unfortunately, he remains in atrial fibrillation despite very aggressive medical therapy
DC pleural chest tube, maintain mediastinal chest tubes.
Case discussed with my cardiology colleagues, no role for DCCV at present, will continue with rate control strategy for AF
OOB, IS, ambulate
Diuresis today
Original Note:
Today's Communication / Plan
-
-pod #2
-a-flutter with RVR 120s - got 3 Amio bolus yesterday and started on Amio drip, Lopressor was increased to 25 bid.
-hypotensive with SBP 70s-90s- gave 1 Albumin, asymptomatic, no lightheadedness while supine, aware of palpitations
-discussed with Dr. Sandy last night - gave iv Digoxin x2 and iv Lopressor overnight without significant response
-NPO for possible cardioversion
-H/h 8.7/23.8 with hypotension and increasing Cr, felt dizzy getting out of bed - will give 1 pRBC
-wt is up 4 lbs- will consider Lasix after transfusion
-urinary retention (has BPH) - bladder scan 506 this am- was able to void 400. Flomax started 04/29
-follow platelets - 110 today (147 on 04/29)
-follow rhythm
-encourage IS
Assessment / Plan
-
- Severe / CAD - s/p AVR (#23 Inspiris Resilia); CABG x 1 (MERCEDES-to-LAD); ELAA (35mm AtriClip) on 04/28/[address] Kemp, pod #2
- Post-MICHELLE w/ normal biventricular function, well-seated AVR w/o PVL/AI, mean gradient 5mmHg under GA, ELAA confirmed
- CAD - s/p LAD stent 2010
- Paroxysmal a-fib - s/p ablation 2013
- Loop recorder
- Bifascicular block
- HTN/HLD
- DEE stenosis
- BPH
- Nephrolithiasis
- Gout
- Acute postop blood loss anemia - stable, 1 pRBC on 04/30
- Acute postop atelectasis
- Acute postop urinary retention
- Acute postop hyponatremia
- NELSY
Discussed patient care with: Nursing and Care Team
Subjective
Procedure
- s/p AVR (#23 Inspiris Resilia); CABG x 1 (MERCEDES-to-LAD); ELAA (35mm AtriClip) on 04/28/[address] Kemp
-
Date of Service: April 30, 2024
Objective Data
-
Lab Results
04/30/24 03:26
PT 16.6 Sec (11.4-14.6) H 04/28/24 13:57
INR 1.34 04/28/24 13:57
APTT 33.4 Sec (23.4-35.0) 04/28/24 13:57
Vital Signs
Vital Signs
Temp Pulse Resp BP Pulse Ox
98.4 F 123 16 92/68 100
04/30/24 00:00 04/30/24 03:18 04/30/24 00:00 04/30/24 01:05 04/30/24 02:30
CT Intake/Output/Weight
04/29/24 04/29/24 04/30/24
06:59 18:59 06:59
Intake Total 450.7 / 1061.0 494.8 / 1785.0 1290.2 / 1785.0
Output Total 1065 / 1750 305 / 430 125 / 430
Balance -614.3 / -689.0 189.8 / 1355.0 1165.2 / 1355.0
SaO2: 100
Physical Exam
-
General: Awake and AOx3
Cardiovascular: Irregular rate & rhythm
Respiratory: Decreased Breath Sounds
Sternum: Stable
Incision: Clean, Dry and Dressing Intact
Extremities: Edema +1
Abdomen: soft, nontender, no nausea, nondistended
Data Reviewed
-
Lab Results: Results Reviewed
Medications: Active Meds Reviewed
Chest X-Ray: Report Reviewed and Image Reviewed
ECG: Report Reviewed and Image Reviewed
--- NOTE | 2024-04-30 05:57 | PTCARENOTE ---
pt ordered 1 unit of PRBC's , 1 unit of blood infusing without difficulty, no transfusion reaction noted, pt resting OOB in chair.
[2024-04-30] MEDS: TYLENOL 1000 MG PO ×2 (06:10→14:10)
[2024-04-30] MEDS: LASIX 40 MG IV (07:50)
[2024-04-30] MEDS: BACTROBAN 2% OINTMENT 1 APPLIC NASAL ×2 (07:50→20:29)
[2024-04-30] MEDS: NSS 500 IV (07:51)
[2024-04-30] MEDS: LOW STRENGTH ASPIRIN 81 MG PO (07:51)
[2024-04-30] MEDS: PACERONE 200 MG PO (07:51)
[2024-04-30] MEDS: ZYLOPRIM 300 MG PO (07:51)
[2024-04-30] MEDS: PLAVIX 75 MG PO (07:51)
[2024-04-30] MEDS: FLOMAX 0.4 MG PO (07:51)
[2024-04-30] MEDS: MAGNESIUM OXIDE 500 MG PO ×2 (07:51→20:23)
[2024-04-30] MEDS: SENOKOT-S 1 TABLET PO ×2 (07:51→20:23)
[2024-04-30] MEDS: NEURONTIN 100 MG PO ×3 (07:51→22:42)
[2024-04-30] MEDS: PROTONIX 40 MG PO (07:51)
[2024-04-30] MEDS: LIDOCAINE 4% PATCH 1 PATCH TOPICAL (07:51)
[2024-04-30] MEDS: FLUSH (NSS) 1 FLUSH IV (07:52)
--- NOTE | 2024-04-30 08:00 | PTCARENOTE ---
Assumed care of patient. Walking rounds completed with previous RN. Pt assessed while he was sitting in the chair. Pt alert and oriented x4. Pt denies pain, shortness of breath, and nausea. KIM with equal strength throughout. Denies dizziness.
Aflutter on tele with rates in the 90s. BP stable 122/56. Bilateral radial and DP pulses palpable. +1 generalized edema. Epicardial v-wire to back up 30/10, no pacing noted. POX 100% on 2L NC, titrated to RA, POX 94%. Lungs diminished in the bases.
No cough. IS encouraged-1000mL achieved. Left pleural chest tube to -20cm suction draining serosanguineous drainage. Mediastinal chest tubes x2 y-sited to 1 atrium to -20cm suction draining serosanguineous drainage. No air leaks, tidaling, crepitus.
Abdomen soft, round, nontender. Hypoactive BS. Due to void for this RN. Sternal incision covered with Aquacel-CDI. Chest tube dressing CDI. Right IJ cordis intact, sluggish, NSS KVO. Left forearm 18g PIV and Right hand 22g PIV intact. See MAR for
medication administration. See worklist for complete nursing assessment. Plan of care reviewed and pt in agreement.
--- NOTE | 2024-04-30 08:30 | W.PN.CD ---
Today's Communication / Plan
-
Incentive spirometry.
Encourage ambulation.
Recheck H/H after transfusion + diuresis.
Low threshold to accelerate diuresis this afternoon.
No role for DCCV at this time.
Impression / Plan
-
Impression/Plan: 69 yo male with PAF s/p PVI (2013), no longer on anticoagulation, CAD and severe, symptomatic aortic stenosis admitted for elective CABG/SAVR/LAAE.
#CAD
-Chronic, progressive.
-Prior PCI in the pLAD. Cardiac catheterization revealed some ISR and de duyen disease post stent.
-S/P 1V CABG (PADRON to LAD) with Dr. Kemp (04/28/2024).
-Routine post operative management.
-Chest tube/pain management per CT surgery.
-Encourage incentive spirometry and ambulation.
-Continue high dose, high potency statin.
-Continue aspirin.
-Patient's weight is up and he has lapsed into atrial flutter with elevated creatinine and dip in H/H, all consistent with volume overload/dilution.
-Agree with furosemide 40 mg IV this morning. VERY low threshold to repeat the furosemide dose (possibly 80 mg) this afternoon depending on patient's response to loop diuretics.
-Monitor potassium/magnesium with introduction of diuresis.
#Severe aortic valve stenosis
-Chronic, progressive, symptomatic.
-S/P #23 Inspiris Resilia SAVR (SN [id number]) with Dr. Kemp (04/28/2024).
-Post operative management as above.
#PAF
-Chronic, stable.
-S/P PVI 2013, currently in NSR.
-Rate control with metoprolol IV, amiodarone gtt and digoxin load.
-CHADS2-Vasc = 2 (Age, vascular disease).
-S/P #35 Atriclip LAAE ([id number] [id number]) with Dr. Kemp (04/28/2024).
-No outpatient therapeutic anticoagulation.
-I am not sure that DCCV is needed this morning and would likely not be effective if the atrial flutter is being driven by volume overload.
#Anemia
-Acute blood loss anemia, post operative.
-Repeat H/H after transfusion.
-Some degree of dilution. Monitor for hemoconcentration with diuresis.
Subjective/Interval History:
Overnight, the patient developed atrial flutter with asymptomatic hypotension.
H/H has fallen to 8.7/23.8 (<-- 9.5/25.8).
The patient was transfused 2 units of PRBC's this morning and treated with metoprolol and digoxin. HR currently in the 90's (previously reported in the 120's).
Currently NPO for possible DCCV.
Weight is up 2 kg from yesterday. 4.6 kg from baseline (97.7 <-- 95.7 <-- 93.1 kg).
Bladder scan positive for 506 mL, then voided 400 mL.
Creatinine up
Furosemide 40 mg IV given this morning.
DATA:
Intraoperative MICHELLE, 04/28/2024:
CONCLUSIONS
Severe aortic stenosis, mild to moderate aortic regurgitation. Valve annulus
23 mm.
Normal left ventricular size and systolic function, no regional wall motion
abnormalities seen, stage I diastolic dysfunction.
Moderate MAC, trace MR.
Mild left atrial enlargement. No thrombus seen in the left atrial appendage.
POST OPERATIVE FINDINGS
Status post aortic valve replacement with 23 mm bioprosthetic aortic valve, the
valve is well-seated, no perivalvular leak, leaflets are functioning well.
Mean gradient is 5 mmHg.
Status post CABG x 1, the left ventricle is vigorously rhonda with EF 60
to 65%. No regional wall motion abnormalities seen.
Status post left atrial appendage exclusion, no flow seen through the left
atrial appendage remnant.
Normal right ventricular size and function.
Trace MR. Trace TR.
Cardiac Catheterization, 03/16/2024:
CORONARY ANGIOGRAPHY
Dominance: Right.
Left Main: Normal.
LAD: There is a patent proximal LAD stent (2010) with mild in-stent stenosis approximately 20-30% in severity. The remainder of the LAD system has trivial luminal disease.
Circumflex: Trivial luminal irregularities.
RCA: Large dominant mildly ectatic vessel with mild luminal irregularities.
Physical Exam
Vital Signs/Labs
Vital Signs
Temp Pulse Resp BP Pulse Ox
37.0 C 94 17 122/56 94
04/30/24 08:00 04/30/24 08:00 04/30/24 08:00 04/30/24 08:00 04/30/24 08:00
04/28/24 04/29/24 04/30/24
11:59 11:59 11:59
Actual Weight 93.1 kg 95.7 kg 97.7 kg
04/30/24 03:26
04/30/24 03:26
PT 16.6 Sec (11.4-14.6) H 04/28/24 13:57
INR 1.34 04/28/24 13:57
APTT 33.4 Sec (23.4-35.0) 04/28/24 13:57
Magnesium 2.2 mg/dl (1.6-2.3) 04/30/24 03:26
Physical Exam
Constitutional: No acute distress and Comfortable
EENT: Anicteric and Moist mucous membranes
Cardiovascular: Rhythm/rate is irregular, S1S2 is normal and Murmur/rub/gallop absent
Respiratory: Respiratory effort normal
GI: Soft, Distention absent, Flat, Non tender and Normal bowel sounds
Neuro/Psych: AO x 3
Data Reviewed
-
Date of Service: April 30, 2024
Medical Decision Making: Reviewed Test Results, Independent Historian Assessment, Test Interpretation and Review of Case with other Provider
EKG: Tracing Personally Visualized and interpreted and Report Reviewed by me
Echo: Report Reviewed by me
X-Ray/CT/US/MRI/NUC/PET: Image Personally Visualized and interpreted and Report Reviewed by me
Medical Tests (PFT, Pathology etc): Report Reviewed by me
Labs: Labs Reviewed by me
Old Records: Reviewed
[2024-04-30] MEDS: LOPRESSOR 25 MG PO ×2 (09:34→20:23)
--- NOTE | 2024-04-30 09:53 | W.PN.CD ---
Addendum entered and electronically signed by Faustino Walker MD 05/04/24 09:45:
Cllarification: ECG consitent with typical atrial flutter
Original Note:
Today's Communication / Plan
-
Amio IV and po for rate control
Impression / Plan
-
Impression/Plan: 69 yo male with PAF s/p PVI (2013), no longer on anticoagulation, CAD and severe, symptomatic aortic stenosis admitted for elective CABG/SAVR/LAAE.
#CAD
-Chronic, progressive.
-Prior PCI in the pLAD. Cardiac catheterization revealed some ISR and de duyen disease post stent.
-S/P 1V CABG (PADRON to LAD) with Dr. Kemp (04/28/2024).
-Routine post operative management.
-Chest tube/pain management per CT surgery.
-Encourage incentive spirometry and ambulation
-Continue high dose, high potency statin.
-Continue aspirin.
-Patient's weight is up and he has lapsed into atrial flutter with elevated creatinine and dip in H/H, all consistent with volume overload/dilution.
-Agree with furosemide 40 mg IV this morning. VERY low threshold to repeat the furosemide dose (possibly 80 mg) this afternoon depending on patient's response to loop diuretics.
-Monitor potassium/magnesium with introduction of diuresis.
#Severe aortic valve stenosis
-Chronic, progressive, symptomatic.
-S/P #23 Inspiris Resilia SAVR (SN [id number]) with Dr. Kemp (04/28/2024).
-Post operative management as above.
#PAF
-S/P PVI 2013, currently in NSR.
-Rate control with metoprolol IV, amiodarone gtt and digoxin load.
-CHADS2-Vasc = 2 (Age, vascular disease).
-S/P #35 Atriclip LAAE ([id number] [id number]) with Dr. Kemp (04/28/2024).
-No outpatient therapeutic anticoagulation.
-No DCCV today as we cannot anticoagulate safely this early postop
#Anemia
-Acute blood loss anemia, post operative.
-Repeat H/H after transfusion.
-Some degree of dilution. Monitor for hemoconcentration with diuresis.
Subjective/Interval History:
Overnight, the patient developed atrial flutter with asymptomatic hypotension.
H/H has fallen to 8.7/23.8 (<-- 9.5/25.8).
The patient was transfused 2 units of PRBC's this morning and treated with metoprolol and digoxin. HR currently in the 90's (previously reported in the 120's).
Currently NPO for possible DCCV.
Weight is up 2 kg from yesterday. 4.6 kg from baseline (97.7 <-- 95.7 <-- 93.1 kg).
Bladder scan positive for 506 mL, then voided 400 mL.
Creatinine up
Furosemide 40 mg IV given this morning.
DATA:
Intraoperative MICHELLE, 04/28/2024:
CONCLUSIONS
Severe aortic stenosis, mild to moderate aortic regurgitation. Valve annulus
23 mm.
Normal left ventricular size and systolic function, no regional wall motion
abnormalities seen, stage I diastolic dysfunction.
Moderate MAC, trace MR.
Mild left atrial enlargement. No thrombus seen in the left atrial appendage.
POST OPERATIVE FINDINGS
Status post aortic valve replacement with 23 mm bioprosthetic aortic valve, the
valve is well-seated, no perivalvular leak, leaflets are functioning well.
Mean gradient is 5 mmHg.
Status post CABG x 1, the left ventricle is vigorously rhonda with EF 60
to 65%. No regional wall motion abnormalities seen.
Status post left atrial appendage exclusion, no flow seen through the left
atrial appendage remnant.
Normal right ventricular size and function.
Trace MR. Trace TR.
Cardiac Catheterization, 03/16/2024:
CORONARY ANGIOGRAPHY
Dominance: Right.
Left Main: Normal.
LAD: There is a patent proximal LAD stent (2010) with mild in-stent stenosis approximately 20-30% in severity. The remainder of the LAD system has trivial luminal disease.
Circumflex: Trivial luminal irregularities.
RCA: Large dominant mildly ectatic vessel with mild luminal irregularities.
Physical Exam
Vital Signs/Labs
Vital Signs
Temp Pulse Resp BP Pulse Ox
98.6 F 102 17 114/67 94
04/30/24 08:00 04/30/24 09:30 04/30/24 08:00 04/30/24 09:27 04/30/24 08:00
04/29/24 04/30/24 05/01/24
06:59 06:59 06:59
Actual Weight 210 lb 15.718 oz 215 lb 6.266 oz
04/30/24 03:26
04/30/24 03:26
PT 16.6 Sec (11.4-14.6) H 04/28/24 13:57
INR 1.34 04/28/24 13:57
APTT 33.4 Sec (23.4-35.0) 04/28/24 13:57
Magnesium 2.2 mg/dl (1.6-2.3) 04/30/24 03:26
Physical Exam
Constitutional: No acute distress
Cardiovascular: Rhythm/rate is irregular, S1S2 is normal and Murmur/rub/gallop absent
Respiratory: Respiratory effort normal, Lungs clear to auscul. and Wheeze Absent
GI: Soft and Non tender
Neuro/Psych: AO x 3 and Motor deficits absent
Data Reviewed
-
Date of Service: April 30, 2024
--- NOTE | 2024-04-30 10:30 | PTCARENOTE ---
Orthostatic BPs obtained. Lying 128/69, Sitting 126/68, Standing 89/63. Pt stated he felt slightly dizzy when standing. Resolved. Ambulated 150' in the smith, tolerated. Assisted back to bed. chest tubes x3 d/c per orders. Sutures tied, dressing
applied. Pt tolerated. Resting in bed. Amio gtt restarted per orders. Pt tolerating.
--- NOTE | 2024-04-30 11:55 | CARDSERVLU ---
Echocardiogram with Lumason completed after protocol screening completed. Allergies verified.
Patent IV site: __left FA___
IV site flushed with 0.9% NaCl pre and post administration.
Diluted bolus method utilized to enhance visualization of ventricular rothman.
Total volume given: ____4.0 mL
Patient tolerated all procedures well without complications.
[2024-04-30] MEDS: ROXICODONE 2.5 MG PO (12:10)
--- NOTE | 2024-04-30 12:10 | PTCARENOTE ---
Pt reassessed. Lying in bed with family at bedside. Pt rates sternal pain 3/10-see NOV. VSS. Aflutter with rates in the 80s. BP 96/69. POX 93% on RA. Surgical sites stable. Pt voided 475ml timo urine in the urinal earlier. No other acute changes
from previous assessment.
--- NOTE | 2024-04-30 13:56 | PN.CDI ---
CDI
- -
CDI:
Physician Documentation Request
Admit Date: 04/28/24 05:09
Dear Doctor Denise,
Patient is s/p CABG.
Signed EKG 04/30 shows Atrial flutter.
Cardiology progress notes report this diagnosis.
Please provide further specificity regarding atrial flutter:
Typical Atrial Flutter - Type I: Classic or common atrial flutter, Rate is 240-340 beats/min. Usually responds to atrial pacing.
Atypical Atrial Flutter - Type II: Less common and more unstable. Rate is 340-440 beats/min. Less responsive to atrial pacing.
Other - please specify
Use of terms such as suspected, likely, concern for, or probable (associated with a specific diagnosis that is being evaluated, monitored, or treated as if it exists) are acceptable and can be coded in the inpatient setting, when documented at the
time of discharge.
Thank you,
Ayesha Aguilera RN,BSN
CDI Specialist
[place] [facility]
Please use your independent medical judgment in providing your response.
--- NOTE | 2024-04-30 16:00 | PTCARENOTE ---
Pt reassessed. VSS. Aflutter with rates at rest in the 80s-90s. BP 106/57. POX 96% on RA. Surgical sites stable. Pt ambulated to the bathroom to brush his teeth. Repositioned in the chair and air cushion provided. No other acute changes at this time.
--- NOTE | 2024-04-30 16:31 | CM ---
dc plans remain home when medically stable. he is agreeable to a f/u visit for the ct transitional care nurse after dc.
[2024-04-30] MEDS: LIPITOR 80 MG PO (18:01)
[2024-04-30] MEDS: CORDARONE 518 MG IV (18:57)
--- NOTE | 2024-04-30 19:30 | PTCARENOTE ---
Received pt from [facility], walking rounds completed. Pt assessment completed in chair. Pt is AAOx3, no neuro deficits, Per last ecg, pt in A-flutter, HR is 77, epicardial v-wire to back up 30/10, no pacing noted, pulses palpable, trace edema in all
extremities. Lungs clear, diminished in bases, POX 100% RA, I/S:1000. B/S hypoactive, abdomen soft, non-tender, pt voided 300 timo urine. Sternal incision dressing C/D/I. , C/T dressing C/D/I. Discussed plan of care with pt for evening, pt
verbalized agreement to plan.
[2024-04-30] MEDS: PACERONE 400 MG PO (20:22)
[2024-04-30] MEDS: ROXICODONE 5 MG PO (20:24)
[2024-04-30] MEDS: DILAUDID 0.25 MG IV (20:42)
[2024-04-30] MEDS: TYLENOL PO (22:42)
--- NOTE | 2024-04-30 23:18 | PTCARENOTE ---
VSS. A-Flutter, HR: 60-70's, Pt c/o pain in back and sternal area, given medication (see MAR). Pt resting comfortably in bed.
[2024-05-01] VITALS (22 sets, daily range): BP systolic 87–135; BP diastolic 48–73; PULSE 66–86; O2SAT 95–99; BMI 34.1
[2024-05-01 04:30] LABS: Hematocrit 27.2 % (39.0-52.0); Hemoglobin 9.8 g/dL (13.0-18.0); Mean Corpuscular Hgb 32.8 pg (27.0-31.0); Mean Platelet Volume 9.8 fL (7.4-10.4); Platelet Count 113 10^3/uL (130-400); Red Blood Cell Count 2.99 10^6/uL (4.70-6.10); Red Cell Dist. Width 13.5 % (11.5-14.5); White Blood Cell Count 10.8 10^3/uL (4.8-10.8)
--- NOTE | 2024-05-01 04:30 | PTCARENOTE ---
VSS. AAOx3 with no neuro deficits noted, A-flutter, HR-70's. Pt labs and daily wt obtained. Pt bathed, OOB to chair.
[2024-05-01 04:41] LABS: Blood Urea Nitrogen 31 mg/dl (9-20); Calcium 8.2 mg/dl (8.4-10.2); Carbon Dioxide 28 mmol/L (22-30); Chloride 97 mmol/L (98-107); Estimated Creatinine Clearance 63 ml/min; Glucose 136 mg/dl (70-99); Magnesium 2.4 mg/dl (1.6-2.3); Potassium 4.6 mmol/L (3.5-5.1); Sodium 133 mmol/L (135-145); eGFR > 60.00
[2024-05-01] MEDS: ROXICODONE 5 MG PO (04:50)
[2024-05-01] MEDS: TYLENOL PO ×2 (05:56→22:00)
--- NOTE | 2024-05-01 06:02 | W.PN.CT ---
Today's Communication / Plan
-
Progressing well.
Aspirin, high intensity statin, beta-marcio.
Remains in a controlled A-fib. Transition amiodarone to p.o. Consider starting Eliquis. Cardiology following.
Consider removing Cordis once IV amiodarone discontinued.
Weaned to room air. Continue I-S, progressive ambulation, turn cough and deep breathe
Passing flatus, no bowel movement, continue bowel regimen
Hemoglobin 9.8 status post 1 unit packed red blood cells yesterday.
No further urinary retention.
Platelet count recovering.
Continue to mobilize
Anticipate home in 24 to 48 hours pending rhythm control
Assessment / Plan
-
- Severe / CAD - s/p AVR (#23 Inspiris Resilia); CABG x 1 (MERCEDES-to-LAD); ELAA (35mm AtriClip) on 04/28/[address] Kemp, pod #2
- Post-MICHELLE w/ normal biventricular function, well-seated AVR w/o PVL/AI, mean gradient 5mmHg under GA, ELAA confirmed
- CAD - s/p LAD stent 2010
- Paroxysmal a-fib - s/p ablation 2013
- Loop recorder
- Bifascicular block
- HTN/HLD
- DEE stenosis
- BPH
- Nephrolithiasis
- Gout
- Acute postop blood loss anemia - stable, 1 pRBC on 04/30
- Acute postop atelectasis
- Acute postop urinary retention
- Acute postop hyponatremia
- NELSY
Subjective
Procedure
- s/p AVR (#23 Inspiris Resilia); CABG x 1 (MERCEDES-to-LAD); ELAA (35mm AtriClip) on 04/28/[address] eKmp
-
Date of Service: May 01, 2024
Feels okay. Had a good night. Anxious about A-fib.
Objective Data
-
Lab Results
05/01/24 04:14
05/01/24 04:14
PT 16.6 Sec (11.4-14.6) H 04/28/24 13:57
INR 1.34 04/28/24 13:57
APTT 33.4 Sec (23.4-35.0) 04/28/24 13:57
Vital Signs
Vital Signs
Temp Pulse Resp BP Pulse Ox
99.6 F 73 16 116/61 99
05/01/24 04:05 05/01/24 05:00 05/01/24 04:05 05/01/24 04:39 05/01/24 04:05
CT Intake/Output/Weight
04/30/24 04/30/24 05/01/24
06:59 18:59 06:59
Intake Total 1620.3 / 2115.1 723.2 / 1256.9 533.7 / 1256.9
Output Total 570 / 875 875 / 1625 750 / 1625
Balance 1050.3 / 1240.1 -151.8 / -368.1 -216.3 / -368.1
SaO2: 99
Physical Exam
-
General: Awake and Oriented
Cardiovascular: Irregular rate & rhythm
Respiratory: Clear and Equal
Sternum: Stable
Incision: Dressing Intact
Extremities: Edema +1
Data Reviewed
-
Lab Results: Results Reviewed
Medications: Active Meds Reviewed
Chest X-Ray: Report Reviewed and Image Reviewed
--- NOTE | 2024-05-01 08:00 | PTCARENOTE ---
Resumed care of patient. Walking rounds completed with previous RN. Pt assessed while he was sitting in the chair. pt alert and oriented x4. Pt c/o sternal discomfort, requests muscle relaxant-see MAR. KIM with equal strength throughout. Aflutter on
tele with rates in the 60s-70s. BP stable 130/70. Bilateral radial and DP pulses palpable. +1 generalized edema noted. Left base with crackles, diminished in the right base. No cough. IS encouraged-1250mL achieved. Abdomen soft, round, nontender.
+BS, +gas. Poor appetite. Pt requesting pills crushed in applesauce. Due to void for this RN. Sternal incision covered with Aquacel-CDI. Old chest tube sites covered with dressing CDI. Right IJ cordis intact, Amio gtt d/c per orders. Left forearm
18g PIV intact. See MAR for medication administration. See worklist for complete nursing assessment. Plan of care reviewed and patient in agreement.
[2024-05-01] MEDS: FLUSH (NSS) 1 FLUSH IV (08:24)
[2024-05-01] MEDS: LIDOCAINE 4% PATCH 1 PATCH TOPICAL (08:24)
[2024-05-01] MEDS: NEURONTIN 100 MG PO ×3 (08:25→22:23)
[2024-05-01] MEDS: LOW STRENGTH ASPIRIN 81 MG PO (08:25)
[2024-05-01] MEDS: PLAVIX 75 MG PO (08:25)
[2024-05-01] MEDS: MAGNESIUM OXIDE 500 MG PO (08:25)
[2024-05-01] MEDS: PROTONIX 40 MG PO (08:25)
[2024-05-01] MEDS: PACERONE 400 MG PO ×2 (08:25→20:19)
[2024-05-01] MEDS: FLOMAX 0.4 MG PO (08:25)
[2024-05-01] MEDS: LOPRESSOR 25 MG PO ×2 (08:25→20:20)
[2024-05-01] MEDS: SENOKOT-S 1 TABLET PO ×2 (08:25→20:19)
[2024-05-01] MEDS: ZYLOPRIM 300 MG PO (08:25)
[2024-05-01] MEDS: NSS IV (08:26)
[2024-05-01] MEDS: BACTROBAN 2% OINTMENT 1 APPLIC NASAL ×2 (08:26→20:20)
[2024-05-01] MEDS: FLEXERIL 5 MG PO (08:26)
--- NOTE | 2024-05-01 09:21 | W.PN.UPDATE ---
Update Note
Progress Note Update
CARDIAC SURGERY ATTENDING:
Postop day #3 status post AVR (#23 Inspira's Resilia), CABG x 1 (MERCEDES to LAD), and exclusion of left atrial appendage with 35mm atrial clip
Patient with initially difficult to control atrial fibrillation requiring multiple boluses of amiodarone, amiodarone infusion, beta-marcio, and digoxin. Patient has converted to normal sinus rhythm at 67 currently. No major issues over the night
patient remains hemodynamically stable. He is on room air. Chest tubes were removed yesterday. He was transfused 1 unit of packed red blood cells yesterday for hemoglobin of 8.7. He responded appropriately his a.m. hemoglobin this morning is
9.8. CXR: Mild pulmonary edema without any pleural effusions bilaterally, stable cardiomegaly.
Continue Eliquis/aspirin, DC Plavix
Out of bed, ambulate, I-S
DC Cordis
Beta-marcio, amiodarone
Discharge planning for 1 to 2 days
--- NOTE | 2024-05-01 09:35 | W.PN.CD ---
Today's Communication / Plan
-
- IV amiodarone to PO, Metoprolol to PO and digoxin to PRN
- Chronic anticoagulation started with Xarelto.
Impression / Plan
-
Impression/Plan: 69 yo male with PAF s/p PVI (2013), no longer on anticoagulation, CAD and severe, symptomatic aortic stenosis s/p AVR (#23 Inspira's Resilia), CABG x 1 (MERCEDES to LAD), and exclusion of left atrial appendage with 35mm atrial clip.
#CAD
-Chronic, progressive.
-Prior PCI in the pLAD. Cardiac catheterization revealed some ISR and de duyen disease post stent.
-S/P 1V CABG (PADRON to LAD) with Dr. Kemp (04/28/2024).
-Routine post operative management.
-Chest tube removed.
-pain management per CT surgery.
-Encourage incentive spirometry and ambulation
-Continue high dose, high potency statin.
-Continue aspirin.
-Patient's weight is up and he has lapsed into atrial flutter with elevated creatinine and dip in H/H, all consistent with volume overload/dilution.
-IV lasix as needed.
-Monitor potassium/magnesium with introduction of diuresis.
#Severe aortic valve stenosis
-Chronic, progressive, symptomatic.
-S/P #23 Inspiris Resilia SAVR (SN [id number]) with Dr. Kemp (04/28/2024).
-Post operative management as above.
#PAF
-S/P PVI 2013, currently in NSR.
-Rate control with metoprolol 25 BID, amiodarone 400 mg BID. Digoxin as needed.
-CHADS2-Vasc = 2 (Age, vascular disease).
-S/P #35 Atriclip LAAE (LOT [id number]) with Dr. Kemp (04/28/2024).
-Started on Xarelto 20 mg qPM today
#Anemia
-Acute blood loss anemia, post operative.
-stable H/H after transfusion.
-Some degree of dilution. Monitor for hemoconcentration with diuresis.
Subjective/Interval History:
rate controlled AF. doing well post op now.
DATA:
Intraoperative MICHELLE, 04/28/2024:
CONCLUSIONS
Severe aortic stenosis, mild to moderate aortic regurgitation. Valve annulus
23 mm.
Normal left ventricular size and systolic function, no regional wall motion
abnormalities seen, stage I diastolic dysfunction.
Moderate MAC, trace MR.
Mild left atrial enlargement. No thrombus seen in the left atrial appendage.
POST OPERATIVE FINDINGS
Status post aortic valve replacement with 23 mm bioprosthetic aortic valve, the
valve is well-seated, no perivalvular leak, leaflets are functioning well.
Mean gradient is 5 mmHg.
Status post CABG x 1, the left ventricle is vigorously rhonda with EF 60
to 65%. No regional wall motion abnormalities seen.
Status post left atrial appendage exclusion, no flow seen through the left
atrial appendage remnant.
Normal right ventricular size and function.
Trace MR. Trace TR.
Cardiac Catheterization, 03/16/2024:
CORONARY ANGIOGRAPHY
Dominance: Right.
Left Main: Normal.
LAD: There is a patent proximal LAD stent (2010) with mild in-stent stenosis approximately 20-30% in severity. The remainder of the LAD system has trivial luminal disease.
Circumflex: Trivial luminal irregularities.
RCA: Large dominant mildly ectatic vessel with mild luminal irregularities.
Physical Exam
Vital Signs/Labs
Vital Signs
Temp Pulse Resp BP Pulse Ox
98.0 F 68 16 130/70 97
05/01/24 08:00 05/01/24 08:18 05/01/24 08:00 05/01/24 08:18 05/01/24 08:00
04/30/24 05/01/24 05/02/24
06:59 06:59 06:59
Actual Weight 97.7 kg 98.6 kg
05/01/24 04:14
05/01/24 04:14
PT 16.6 Sec (11.4-14.6) H 04/28/24 13:57
INR 1.34 04/28/24 13:57
APTT 33.4 Sec (23.4-35.0) 04/28/24 13:57
Magnesium 2.4 mg/dl (1.6-2.3) H 05/01/24 04:14
Physical Exam
Constitutional: No acute distress and Comfortable
EENT: Anicteric and Moist mucous membranes
Cardiovascular: Pedal edema is absent, JVD pressure is normal and Rhythm/rate is irregular
Respiratory: Respiratory effort normal, Wheeze Absent and Crackles Present
GI: Soft, Non tender and Normal bowel sounds
Other: Skin
Data Reviewed
-
Date of Service: May 01, 2024
Medical Decision Making: Reviewed Test Results
EKG: Tracing Personally Visualized and interpreted
Echo: Report Reviewed by me
X-Ray/CT/US/MRI/NUC/PET: Image Personally Visualized and interpreted
Labs: Labs Reviewed by me
Old Records: Reviewed
Critical Care Time (in minutes): 35
[2024-05-01] MEDS: LASIX 40 MG IV (11:44)
--- NOTE | 2024-05-01 11:50 | PTCARENOTE ---
Pt reassessed. VSS. Aflutter with rates in the 60s. BP stable 135/70. POX 95% on RA. Surgical sites stable. Poor appetite, ensure ordered. Encouraged pt to be OOB and do IS. Pt compliant at this time.
[2024-05-01] MEDS: TYLENOL 1000 MG PO (15:22)
--- NOTE | 2024-05-01 15:30 | PTCARENOTE ---
Pt reassessed. VSS. Aflutter on tele with rates in the 80s. BP stable 135/69. POX 95% on RA. Surgical sites stable. V-wire insulated. Right IJ cordis d/c per orders. Left forearm PIV d/c. Left AC 20g PIV placed by VAT. Productive cough with castañeda
sputum. Pt denies dizziness when standing to urinate. Urinating timo urine in the urinal. No other acute changes.
[2024-05-01] MEDS: LIPITOR 80 MG PO (18:16)
--- NOTE | 2024-05-01 20:00 | PTCARENOTE ---
Received pt from [facility]; pt resting comfortably in chair, pt denies pain. pt is AAOx4. A-flutter with RBBB on monitor, VSS. heart sounds audible, radial and DP pulses palpable, +1 SADE, temp epicardial V-wires insulated. crackles auscultated on
left posterior lower lobe, spo2 96% on RA. +BS x4 quadrants, abdomen soft non tender. pt voiding clear yellow urine. surgical sites maintained. PIV maintained. pt assisted back to bed. call diaz within reach. will continue to monitor.
[2024-05-01] MEDS: MAGNESIUM OXIDE PO ×2 (20:19→20:23)
[2024-05-01] MEDS: ELIQUIS 5 MG PO (20:19)
[2024-05-02] VITALS (15 sets, daily range): BP systolic 106–140; BP diastolic 56–92; BMI 33.8
--- NOTE | 2024-05-02 | PTCARENOTE ---
Pt assessment unchanged; A-flutter on monitor, VSS. pt resting comfortably in bed; call diaz within reach. will continue to monitor.
[2024-05-02] MEDS: FLEXERIL 5 MG PO (03:31)
--- NOTE | 2024-05-02 04:00 | PTCARENOTE ---
Pt assessment unchanged; JENNIFER Khan on monitor, VSS. Pt assisted OOB to void and back to bed. Labs drawn and sent. EKG obtained. call diaz within reach. will continue to monitor.
[2024-05-02 04:16] LABS: Hematocrit 26.4 % (39.0-52.0); Hemoglobin 9.6 g/dL (13.0-18.0); Mean Corp Hgb Conc. 36.4 g/dL (33.0-37.0); Mean Corpuscular Hgb 33.3 pg (27.0-31.0); Mean Corpuscular Volume 91.7 fL (80.0-94.0); Mean Platelet Volume 10.1 fL (7.4-10.4); Platelet Count 167 10^3/uL (130-400); Red Blood Cell Count 2.88 10^6/uL (4.70-6.10); Red Cell Dist. Width 13.3 % (11.5-14.5); White Blood Cell Count 10.2 10^3/uL (4.8-10.8)
[2024-05-02 04:51] LABS: Blood Urea Nitrogen 31 mg/dl (9-20); Calcium 8.3 mg/dl (8.4-10.2); Carbon Dioxide 30 mmol/L (22-30); Chloride 98 mmol/L (98-107); Estimated Creatinine Clearance 76 ml/min; Glucose 131 mg/dl (70-99); Magnesium 2.5 mg/dl (1.6-2.3); Potassium 4.6 mmol/L (3.5-5.1); Sodium 134 mmol/L (135-145); eGFR > 60.00
--- NOTE | 2024-05-02 06:00 | W.PN.CT ---
Addendum entered and electronically signed by Brandon Kemp MD 05/02/24 09:19:
I saw and examined the patient.
The PA's note was reviewed and I agree with the note.
Comment:
No major overnight events. Back in AF/flutter this AM w/ rate in 90s. Hemodynamically stable. RA
- S&S eval - pt. w/ hx of trach & report of preoperative & postoperative difficulty swallowing pills - tolerating PO ok.
- Continue ASA/Eliquis, BB (37.5mg BID), stating
- NPO post MN today to d/w cardiology DCCV tomorrow
- OOB/IS/ambulate
- D/C planning for 1-2 days
Original Note:
Today's Communication / Plan
-
Status post CABG: Continue aspirin high density statin and beta-marcio.
Remains in atrial flutter with variable AV block, rate controlled, continue Xarelto amiodarone and beta-marcio (uptitrated). Management per cardiology, considering DCCV outpatient. Has history of A-fib with prior ablation and cardioversions.
On room air. Continue progressive ambulation, I-S.
+BM, constipation resolved. Continue bowel regimen.
Patient states he feels fatigued and is not ready to leave today. He does not feel comfortable on his feet yet.
Continue cardiac rehab.
Anticipate home tomorrow.
Assessment / Plan
-
- Severe / CAD - s/p AVR (#23 Inspiris Resilia); CABG x 1 (MERCEDES-to-LAD); ELAA (35mm AtriClip) on 04/28/[address] Kemp, pod #4
- Post-MICHELLE w/ normal biventricular function, well-seated AVR w/o PVL/AI, mean gradient 5mmHg under GA, ELAA confirmed
- CAD - s/p LAD stent 2010
- Paroxysmal a-fib - s/p ablation 2013
- Loop recorder
- Bifascicular block
- HTN/HLD
- DEE stenosis
- BPH
- Nephrolithiasis
- Gout
- Acute postop blood loss anemia - stable, 1 pRBC on 04/30
- Acute postop atelectasis
- Acute postop urinary retention
- Acute postop hyponatremia
- NELSY
Subjective
Procedure
- s/p AVR (#23 Inspiris Resilia); CABG x 1 (MERCEDES-to-LAD); ELAA (35mm AtriClip) on 04/28/[address] Kemp
-
Date of Service: May 02, 2024
Feels okay overall. Fatigued. Slept overnight.
Objective Data
-
Lab Results
05/02/24 03:51
05/02/24 03:51
PT 16.6 Sec (11.4-14.6) H 04/28/24 13:57
INR 1.34 04/28/24 13:57
APTT 33.4 Sec (23.4-35.0) 04/28/24 13:57
Vital Signs
Vital Signs
Temp Pulse Resp BP Pulse Ox
98.4 F 96 20 131/56 95
05/02/24 04:00 05/02/24 04:00 05/02/24 04:00 05/02/24 04:00 05/02/24 04:00
CT Intake/Output/Weight
05/01/24 05/01/24 05/02/24
06:59 18:59 06:59
Intake Total 560.4 / 1283.6 266.7 / 266.7
Output Total 750 / 1625 900 / 2150 1250 / 2150
Balance -189.6 / -341.4 -633.3 / -1883.3 -1250 / -1883.3
SaO2: 95
Physical Exam
-
General: Awake and Oriented
Cardiovascular: Irregular rate & rhythm
Respiratory: Clear and Equal
Sternum: Stable
Incision: Dressing Intact
Extremities: Edema +1
Data Reviewed
-
Lab Results: Results Reviewed
Medications: Active Meds Reviewed
Chest X-Ray: Report Reviewed and Image Reviewed
[2024-05-02] MEDS: TYLENOL 1000 MG PO (06:31)
[2024-05-02] MEDS: NSS IV (07:17)
--- NOTE | 2024-05-02 08:00 | PTCARENOTE ---
Resumed care of patient. Pt assessed while he was sitting in the chair. Pt alert and oriented x4. Flat affect. Rates sternal discomfort 4/10-states that is tolerable and refuses medication at this time. KIM with equal strength throughout. Aflutter
on tele with rates in the 80s. BP stable 120/72. Epicardial v-wire insulated. Bilateral radial and DP pulses palpable. Generalized +1 edema. POX 97% on RA. Lungs clear, diminished in the bases. IS encouraged-1000mL achieved. Occasional productive
cough with castañeda sputum. +BS. Pt reports poor appetite, and struggle swallowing pills, pills crushed in applesauce. Pt voiding in the urinal, reports no issues. Sternal incision covered with Aquacel-CDI. Old chest tube sites covered, CDI. Left AC 20g
PIV intact. See MAR for medication administration. See worklist for complete nursing assessment. Plan of care reviewed and patient in agreement.
[2024-05-02] MEDS: LOW STRENGTH ASPIRIN 81 MG PO (08:04)
[2024-05-02] MEDS: FLOMAX 0.4 MG PO (08:04)
[2024-05-02] MEDS: NEURONTIN 100 MG PO (08:04)
[2024-05-02] MEDS: PACERONE 400 MG PO ×2 (08:04→20:27)
[2024-05-02] MEDS: SENOKOT-S 1 TABLET PO (08:04)
[2024-05-02] MEDS: ELIQUIS 5 MG PO ×2 (08:04→20:24)
[2024-05-02] MEDS: FLUSH (NSS) 1 FLUSH IV (08:05)
[2024-05-02] MEDS: LOPRESSOR 37.5 MG PO (08:05)
[2024-05-02] MEDS: LIDOCAINE 4% PATCH 1 PATCH TOPICAL (08:05)
[2024-05-02] MEDS: MAGNESIUM OXIDE PO ×2 (08:06→21:41)
[2024-05-02] MEDS: ZYLOPRIM PO (08:06)
[2024-05-02] MEDS: PROTONIX PO (08:06)
[2024-05-02] MEDS: BACTROBAN 2% OINTMENT 1 APPLIC NASAL (08:06)
[2024-05-02] MEDS: LASIX 40 MG IV (08:14)
--- NOTE | 2024-05-02 08:22 | W.PN.CD ---
Today's Communication / Plan
-
-Continue aspirin, metoprolol, amiodarone, Eliquis
Impression / Plan
-
Impression/Plan: 69 yo male with PAF s/p PVI (2013), no longer on anticoagulation, CAD and severe, symptomatic aortic stenosis s/p AVR (#23 Inspira's Resilia), CABG x 1 (MERCEDES to LAD), and exclusion of left atrial appendage with 35mm atrial clip.
#CAD
-Chronic, progressive.
-Prior PCI in the pLAD. Cardiac catheterization revealed some ISR and de duyen disease post stent.
-S/P 1V CABG (PADRON to LAD) with Dr. Kemp (04/28/2024).
-Routine post operative management.
-Chest tube removed.
-pain management per CT surgery.
-Encourage incentive spirometry and ambulation
-Continue high dose, high potency statin.
-Continue aspirin.
-Patient's weight is up and he has lapsed into atrial flutter with elevated creatinine and dip in H/H, all consistent with volume overload/dilution.
-IV lasix as needed.
-Monitor potassium/magnesium with introduction of diuresis.
#Severe aortic valve stenosis
-Chronic, progressive, symptomatic.
-S/P #23 Inspiris Resilia SAVR (SN [id number]) with Dr. Kemp (04/28/2024).
-Post operative management as above.
#PAF
-S/P PVI 2013, currently in atrial flutter
-Rate is controlled.
-Rate control with metoprolol 25 BID, amiodarone 400 mg BID. Digoxin as needed.
-CHADS2-Vasc = 2 (Age, vascular disease).
-S/P #35 Atriclip LAAE (LOT [id number]) with Dr. Kemp (04/28/2024).
-Started on Eliquis 5 mg twice a day -05/01/2024
-Plan for DC cardioversion in 4-6 weeks.
#Anemia
-Acute blood loss anemia, post operative.
-stable H/H after transfusion.
-Some degree of dilution. Monitor for hemoconcentration with diuresis.
Subjective/Interval History:
rate controlled AFL. doing well post op now.
DATA:
Intraoperative MICHELLE, 04/28/2024:
CONCLUSIONS
Severe aortic stenosis, mild to moderate aortic regurgitation. Valve annulus
23 mm.
Normal left ventricular size and systolic function, no regional wall motion
abnormalities seen, stage I diastolic dysfunction.
Moderate MAC, trace MR.
Mild left atrial enlargement. No thrombus seen in the left atrial appendage.
POST OPERATIVE FINDINGS
Status post aortic valve replacement with 23 mm bioprosthetic aortic valve, the
valve is well-seated, no perivalvular leak, leaflets are functioning well.
Mean gradient is 5 mmHg.
Status post CABG x 1, the left ventricle is vigorously rhonda with EF 60
to 65%. No regional wall motion abnormalities seen.
Status post left atrial appendage exclusion, no flow seen through the left
atrial appendage remnant.
Normal right ventricular size and function.
Trace MR. Trace TR.
Cardiac Catheterization, 03/16/2024:
CORONARY ANGIOGRAPHY
Dominance: Right.
Left Main: Normal.
LAD: There is a patent proximal LAD stent (2010) with mild in-stent stenosis approximately 20-30% in severity. The remainder of the LAD system has trivial luminal disease.
Circumflex: Trivial luminal irregularities.
RCA: Large dominant mildly ectatic vessel with mild luminal irregularities.
Physical Exam
Vital Signs/Labs
Vital Signs
Temp Pulse Resp BP Pulse Ox
99.0 F 88 16 120/72 97
05/02/24 08:00 05/02/24 08:00 05/02/24 08:00 05/02/24 08:00 05/02/24 08:00
0805/02/24 05/03/24
06:59 06:59 06:59
Actual Weight 98.6 kg 97.7 kg
05/02/24 03:51
05/02/24 03:51
PT 16.6 Sec (11.4-14.6) H 04/28/24 13:57
INR 1.34 04/28/24 13:57
APTT 33.4 Sec (23.4-35.0) 04/28/24 13:57
Magnesium 2.5 mg/dl (1.6-2.3) H 05/02/24 03:51
Physical Exam
Constitutional: No acute distress and Comfortable
EENT: Anicteric and Moist mucous membranes
Cardiovascular: JVD pressure is normal, Rhythm/rate is irregular and Systolic murmur present
Respiratory: Respiratory effort normal, Wheeze Absent and Crackles Present
GI: Soft, Non tender and Normal bowel sounds
Neuro/Psych: Alert, Oriented and AO x 3
Data Reviewed
-
Date of Service: May 02, 2024
Medical Decision Making: Reviewed Test Results, Tests Ordered, Independent Historian Assessment, Test Interpretation and Review of Case with other Provider
EKG: Tracing Personally Visualized and interpreted
Echo: Report Reviewed by me
Labs: Labs Reviewed by me
Old Records: Reviewed
[2024-05-02] MEDS: ROXICODONE 5 MG PO (10:18)
--- NOTE | 2024-05-02 12:00 | PTCARENOTE ---
Pt reassessed. Appears to be in better spirits. VSS. Surgical sites stable. Ambulated in the [place] with less SOB. Visiting with family.
--- NOTE | 2024-05-02 14:21 | PTOTSP ---
ST Acute Care Evaluation
Pt currently presents with clinical symptoms consistent with acute on chronic mild pharyngoesophageal dysphagia 2/2 recent intubation, hx of tracheostomy, and untreated reflux symptoms. Pt needs a video fluoroscopic swallow study to confirm these
suspicions as well as to determine what (if any) positional compensatory strategies may aid his swallow, reduce discomfort, and reduce aspiration risk. Given pt's anticipated discharge tomorrow and the chronicity of the pt's symptoms, VFSS is not
urgent and pt can have it completed as an OP.
For now, recommendations are listed below:
- Continue with a regular solids, thin liquids diet. Choose softer and more moist solid items and/or ask for moisture additives such as gravies, sauces, butter, or soup to moisten any dry solids.
- Continue with meds crushed in puree. Please educate pt on which pills he can continue to crush upon returning home and which cannot be crushed. All medications to be administered with puree regardless.
- General aspiration and reflux precautions: Fully upright for all PO intake; small bites/sips; alternate bites/sips; cough when needed if something feels like it's going down the wrong way.
- No acute dysphagia services warranted at this time.
- Pt to pursue VFSS as OP - please provide RX at time of discharge. Thank you.
[2024-05-02] MEDS: NEURONTIN PO ×3 (15:01→23:07)
[2024-05-02] MEDS: TYLENOL PO ×3 (15:01→23:07)
--- NOTE | 2024-05-02 15:21 | PTCARENOTE ---
Pt reassessed. VSS. Pt resting in the chair with family at bedside. Pt refusing tylenol & gabapentin. Denies pain at this time. Old chest tube site dressing d/c, cleansed with CHG, new 4x4 dressing applied. No other acute changes.
[2024-05-02] MEDS: ZOFRAN 4 MG IV (16:54)
[2024-05-02] MEDS: LIPITOR PO (18:38)
[2024-05-02] MEDS: LOPRESSOR 50 MG PO (20:24)
[2024-05-02] MEDS: REGLAN 10 MG IV (21:33)
[2024-05-02] MEDS: MYLICON 80 MG PO (21:33)
[2024-05-02] MEDS: SENOKOT-S PO (21:39)
[2024-05-03 02:44] VITALS: BP 145/79
[2024-05-03 03:34] LABS: Hematocrit 22.7 % (39.0-52.0); Hemoglobin 8.1 g/dL (13.0-18.0); Mean Corp Hgb Conc. 35.7 g/dL (33.0-37.0); Mean Corpuscular Volume 89.7 fL (80.0-94.0); Mean Platelet Volume 9.5 fL (7.4-10.4); Platelet Count 259 10^3/uL (130-400); Red Blood Cell Count 2.53 10^6/uL (4.70-6.10); Red Cell Dist. Width 13.4 % (11.5-14.5); White Blood Cell Count 10.8 10^3/uL (4.8-10.8)
[2024-05-03 03:58] LABS: Blood Urea Nitrogen 31 mg/dl (9-20); Calcium 8.9 mg/dl (8.4-10.2); Carbon Dioxide 30 mmol/L (22-30); Chloride 97 mmol/L (98-107); Estimated Creatinine Clearance 75 ml/min; Glucose 119 mg/dl (70-99); Potassium 4.7 mmol/L (3.5-5.1); Sodium 137 mmol/L (135-145); eGFR > 60.00
--- NOTE | 2024-05-03 05:43 | W.PN.CT ---
Today's Communication / Plan
-
-pod #5
-no significant issues overnight, c/o nausea - got Reglan. Abdomen is soft, benign on exam
-remains in a-fib 90s. Lopressor was increased to 50 bid on 05/02, on Amio po 400 bid and Eliquis. Per Cardiology, plan for DC cardioversion in 4-6 weeks
-wt is up ? 10 lbs from preop. Got 40 iv Lasix on 05/02 (UO 600)- continue
-h/h 8.1/22.7 today (9.6/26.4 on 05/02). No hypotension, asymptomatic - follow
-appreciate Speech input- for VSE today
-follow 2v-CXR
-will need pw cut prior to discharge
-current meds (ASA, Eliquis, Lipitor, Lopressor, Amio, Flomax, Protonix, Mg)
-encourage OOB, ambulate
-possible d/c soon
-appreciate everyone's input
Assessment / Plan
-
- Severe / CAD - s/p AVR (#23 Inspiris Resilia); CABG x 1 (MERCEDES-to-LAD); ELAA (35mm AtriClip) on 04/28/[address] Kemp, pod #5
- Post-MICHELLE w/ normal biventricular function, well-seated AVR w/o PVL/AI, mean gradient 5mmHg under GA, ELAA confirmed
- CAD - s/p LAD stent 2010
- Paroxysmal a-fib - s/p ablation 2013
- Loop recorder
- Bifascicular block (RBBB)
- HTN/HLD
- DEE stenosis
- BPH
- Nephrolithiasis
- Gout
- Acute postop blood loss anemia - stable, 1 pRBC on 04/30
- Acute postop atelectasis
- Acute postop urinary retention
- Acute postop hyponatremia
- NELSY- resolved
- Suspected acute on chronic mild pharyngoesophageal dysphagia 2/2 recent intubation, hx of tracheostomy, and untreated reflux symptoms- for VSE 05/03
Discussed patient care with: Nursing and Care Team
Subjective
Procedure
- s/p AVR (#23 Inspiris Rafaa); CABG x 1 (MERCEDES-to-LAD); ELAA (35mm AtriClip) on 04/28/[address] Kemp
-
Date of Service: May 03, 2024
Objective Data
-
PT 16.6 Sec (11.4-14.6) H 04/28/24 13:57
INR 1.34 04/28/24 13:57
APTT 33.4 Sec (23.4-35.0) 04/28/24 13:57
Vital Signs
Vital Signs
Temp Pulse Resp BP Pulse Ox
98.4 F 97 16 125/92 98
05/02/24 15:19 05/02/24 23:00 05/02/24 15:19 05/02/24 21:55 05/02/24 20:00
CT Intake/Output/Weight
05/02/24 05/02/24 05/03/24
06:59 18:59 06:59
Intake Total 720 / 720
Output Total 1250 / 2150 600 / 600
Balance -1250 / -1883.3 120 / 120
SaO2: 98
Physical Exam
-
General: Awake and AOx3
Cardiovascular: Irregular rate & rhythm (a-fib with RVR), No Murmurs and No Rub
Respiratory: Rales (at bases b/l. No wheeze)
Sternum: Stable
Incision: Clean, Dry and Dressing Intact
Extremities: Edema +1
Abdomen: soft, nontender, nondistended, + bowel sounds, + flatus, some nausea ('dry heaves')
Data Reviewed
-
Lab Results: Results Reviewed
Medications: Active Meds Reviewed
Chest X-Ray: Report Reviewed and Image Reviewed
ECG: Report Reviewed and Image Reviewed
[2024-05-03 06:00] VITALS: BMI 33.5
[2024-05-03] MEDS: TYLENOL PO (07:20)
[2024-05-03 07:46] VITALS: BP 132/71
--- NOTE | 2024-05-03 08:00 | PTCARENOTE ---
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
edema noted; all surgical sites C/D/I; see nursing documentation for further details.
--- NOTE | 2024-05-03 08:36 | W.PN.CD ---
Today's Communication / Plan
-
video swallow then possible d/c
Please coordinate DCCV with Dr. Mckeon in 4 wks
Impression / Plan
-
Impression/Plan: 69 yo male with PAF s/p PVI (2013), no longer on anticoagulation, CAD and severe, symptomatic aortic stenosis s/p AVR (#23 Inspira's Resilia), CABG x 1 (MERCEDES to LAD), and exclusion of left atrial appendage with 35mm atrial clip.
#CAD
-S/P 1V CABG (PADRON to LAD) with Dr. Kemp (04/28/2024).
-Continue high dose, high potency statin.
-Favor continue aspirin due to prior stent in prox LAD
#Severe aortic valve stenosis
-Chronic, progressive, symptomatic.
-S/P #23 Inspiris Resilia SAVR (SN [id number]) with Dr. Kemp (04/28/2024).
#PAF
-S/P PVI 2013, currently in atrial flutter
-Rate is controlled.
-Rate control with metoprolol 25 BID, amiodarone 400 mg BID. Digoxin as needed.
-CHADS2-Vasc = 2 (Age, vascular disease).
-S/P #35 Atriclip LAAE (LOT [id number]) with Dr. Kemp (04/28/2024).
-Started on Eliquis 5 mg twice a day -05/01/2024
-Plan for DC cardioversion in 4-6 weeks. Amio at 200mg bid as outpt- please coordinate DCCV with Dr Mckeon
#Anemia
-Hb a bit lower today at 8.1
-Would check CBC in 2-3 days if discharged today
dysphagia
- video swallow planned for today
Subjective/Interval History:
rate controlled AFL. doing well post op now.
DATA:
Intraoperative MICHELLE, 04/28/2024:
CONCLUSIONS
Severe aortic stenosis, mild to moderate aortic regurgitation. Valve annulus
23 mm.
Normal left ventricular size and systolic function, no regional wall motion
abnormalities seen, stage I diastolic dysfunction.
Moderate MAC, trace MR.
Mild left atrial enlargement. No thrombus seen in the left atrial appendage.
POST OPERATIVE FINDINGS
Status post aortic valve replacement with 23 mm bioprosthetic aortic valve, the
valve is well-seated, no perivalvular leak, leaflets are functioning well.
Mean gradient is 5 mmHg.
Status post CABG x 1, the left ventricle is vigorously rhonda with EF 60
to 65%. No regional wall motion abnormalities seen.
Status post left atrial appendage exclusion, no flow seen through the left
atrial appendage remnant.
Normal right ventricular size and function.
Trace MR. Trace TR.
Cardiac Catheterization, 03/16/2024:
CORONARY ANGIOGRAPHY
Dominance: Right.
Left Main: Normal.
LAD: There is a patent proximal LAD stent (2010) with mild in-stent stenosis approximately 20-30% in severity. The remainder of the LAD system has trivial luminal disease.
Circumflex: Trivial luminal irregularities.
RCA: Large dominant mildly ectatic vessel with mild luminal irregularities.
Physical Exam
Vital Signs/Labs
Vital Signs
Temp Pulse Resp BP Pulse Ox
98.9 F 102 20 132/71 98
05/03/24 08:00 05/03/24 08:00 05/03/24 08:00 05/03/24 07:46 05/03/24 08:00
05/02/24 05/03/24 05/04/24
06:59 06:59 06:59
Actual Weight 215 lb 6.266 oz 213 lb 10.047 oz
05/03/24 02:50
05/03/24 02:50
PT 16.6 Sec (11.4-14.6) H 04/28/24 13:57
INR 1.34 04/28/24 13:57
APTT 33.4 Sec (23.4-35.0) 04/28/24 13:57
Magnesium 2.5 mg/dl (1.6-2.3) H 05/02/24 03:51
Physical Exam
Constitutional: No acute distress and Comfortable
Cardiovascular: Rhythm/rate is irregular, S1S2 is normal and Murmur/rub/gallop absent
Respiratory: Respiratory effort normal, Lungs clear to auscul. and Wheeze Absent
GI: Non tender
Neuro/Psych: AO x 3 and Motor deficits absent
Data Reviewed
-
Date of Service: May 03, 2024
[2024-05-03] MEDS: PACERONE 400 MG PO (08:47)
[2024-05-03] MEDS: ELIQUIS 5 MG PO (08:47)
[2024-05-03] MEDS: LOPRESSOR 50 MG PO (08:48)
[2024-05-03] MEDS: LIDOCAINE 4% PATCH TOPICAL (08:50)
[2024-05-03] MEDS: PROTONIX PO (08:51)
[2024-05-03] MEDS: SENOKOT-S PO (08:51)
--- NOTE | 2024-05-03 09:14 | PTCARENOTE ---
Pt sent to out patient radiology for video swallow.
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
[2024-05-03] MEDS: LOW STRENGTH ASPIRIN 81 MG PO (10:37)
[2024-05-03] MEDS: ZYLOPRIM 300 MG PO (10:37)
[2024-05-03] MEDS: NEURONTIN 100 MG PO (10:38)
[2024-05-03] MEDS: FLOMAX 0.4 MG PO (10:38)
[2024-05-03 10:39] VITALS: BP 124/76
[2024-05-03 10:48] VITALS: BP 138/107
[2024-05-03 11:07] VITALS: BP 104/85
[2024-05-03 12:07] VITALS: BP 124/76; BP 138/107; PULSE 96; O2SAT 95; O2SAT 98
--- NOTE | 2024-05-03 12:11 | W.PN.UPDATE ---
Update Note
Progress Note Update
No temporary pacing records and surgery. Psych consult to chlorhexidine, suture removed, and 2 ventricular wires cut to skin level.
--- NOTE | 2024-05-03 12:11 | PTOTSP ---
Video Swallow Study
Summary: Oral stage WFL. Pharyngeal stage mild. No aspiration occurred. Esophageal screening was not completed. Gastroenterology consult warranted to further assess for esophageal dysphagia given patient's reported symptoms of solid stasis and
regurgitation. Please see patient care note for details of swallowing physiology, penetration, and pharyngeal retention.
Recommend:
1. Regular, Thin Liquids
2. Strategies: upright to 90 degress, small sips/bites, alternate sips/bites, upright for 30 minutes after meals as a reflux precaution, consider small frequent meals instead of 3 meals
3. Oral care 3x daily
4. Gastroenterology consult.
--- NOTE | 2024-05-03 12:38 | CM ---
priced eliquis- first month is $545- of that all the $545 is deductible- the drug is Tier 3 and he would be responsible for 25% of the cost of the med (approx 500 cost) his copay is around $125. spoke to in room, she is agreeable to this cost.
30 day free coupon placed in pts red dc folder.
--- NOTE | 2024-05-03 13:15 | PTCARENOTE ---
Patient for discharge. VSS, Aflutter on night monitor. V wires retracted and cut by CTPA. PIV d/c'd. Pt showered without issues, all dressings removed. Discharge instructions reviewed with patient and , both patient and verbalized
understanding, all pertinent documents provided to patient, medications reconciled. Pt escorted to car with via wheelchair by hospital transport, discharged without issues.
== END 2024-05-03 13:22 | disposition home or self-care (01) | DRG 220 ==
LOC: CVICU 05:09
PROVIDERS: Anesthesiology; Clinical Nurse Specialist Acute Care; Nurse Practitioner; Physician Assistant Medical; ADMITTING PHYSICIAN Thoracic Surgery (Cardiothoracic Vascular Surgery); CONSULT PHYSICIAN Internal Medicine Critical Care Medicine; FAMILY PHYSICIAN Student in an Organized Health Care Education/Training Program
PROC: B24BZZ4 Ultrasonography of Heart with Aorta, Transesophageal (ICD-10-PCS; 2024-04-28)
PROC: 02RF08Z Replacement of Aortic Valve with Zooplastic Tissue, Open Approach (ICD-10-PCS; 2024-04-28)
PROC: 02L70CK Occlusion of Left Atrial Appendage with Extraluminal Device, Open Approach (ICD-10-PCS; 2024-04-28)
PROC: 02100ZC Bypass Coronary Artery, One Artery from Thoracic Artery, Open Approach (ICD-10-PCS; 2024-04-28)
PROC: 5A1221Z Performance of Cardiac Output, Continuous (ICD-10-PCS; 2024-04-28)
PROC: 30233N1 Transfusion of Nonautologous Red Blood Cells into Peripheral Vein, Percutaneous Approach (ICD-10-PCS; 2024-04-30)
DX: I35.0 Nonrheumatic aortic (valve) stenosis (principal); D62 Acute posthemorrhagic anemia; I45.2 Bifascicular block; T82.855A Stenosis of coronary artery stent, initial encounter; J98.11 Atelectasis; N17.9 Acute kidney failure, unspecified; E87.1 Hypo-osmolality and hyponatremia; I48.3 Typical atrial flutter; I25.10 Atherosclerotic heart disease of native coronary artery without angina pectoris; E78.00 Pure hypercholesterolemia, unspecified; I65.21 Occlusion and stenosis of right carotid artery; M10.9 Gout, unspecified; I10 Essential (primary) hypertension; R91.1 Solitary pulmonary nodule; I48.91 Unspecified atrial fibrillation; R13.10 Dysphagia, unspecified; N40.1 Benign prostatic hyperplasia with lower urinary tract symptoms; R33.8 Other retention of urine; Y83.1 Surgical operation with implant of artificial internal device as the cause of abnormal reaction of the patient, or of later complication, without mention of misadventure at the time of the procedure; Z79.82 Long term (current) use of aspirin; Z79.899 Other long term (current) drug therapy; Z82.49 Family history of ischemic heart disease and other diseases of the circulatory system; Z95.5 Presence of coronary angioplasty implant and graft
CPT/HCPCS: 88305; 88311; 36415; 71045; 71046; 71250; 74230; 80048; 80053; 81003; 81015; 82248; 82330; 82565; 82805; 82810; 82947; 82962; 83036; 83735; 84132; 84302; 84520; 85014; 85018; 85025; 85027; 85049; 85610; 85730; 86803; 86850; 86900; 86901; 86920; 87070; 92610; 92611; 93005; 93306; 93312; 93320; 93325; 93880; 94002; 94010; J1160; P9016; P9045; Q9950

== ENCOUNTER 2024-06-02 13:50 | Outpatient (RCR) | payer MEDICARE, SELFPAY | END 2024-06-02 23:59 | disposition home or self-care (01) | LOC: CRHB 13:50 | PROVIDERS: ATTENDING PHYSICIAN Internal Medicine Cardiovascular Disease | DX: Z95.1 Presence of aortocoronary bypass graft (principal); Z95.2 Presence of prosthetic heart valve | CPT/HCPCS: G0422 ==

== ENCOUNTER → 2024-06-04 09:22 | Day surgery (SDC) | payer MEDICARE, SELFPAY ==
[2024-06-04 11:13] VITALS: BMI 30.6
== END ==
LOC: CATH 09:22
PROVIDERS: ATTENDING PHYSICIAN Internal Medicine Cardiovascular Disease; FAMILY PHYSICIAN Student in an Organized Health Care Education/Training Program; OTHER PHYSICIAN Internal Medicine Cardiovascular Disease
DX: I48.0 Paroxysmal atrial fibrillation (principal); I25.10 Atherosclerotic heart disease of native coronary artery without angina pectoris; Z95.5 Presence of coronary angioplasty implant and graft; I35.0 Nonrheumatic aortic (valve) stenosis; E78.00 Pure hypercholesterolemia, unspecified; Z79.82 Long term (current) use of aspirin; Z79.01 Long term (current) use of anticoagulants
CPT/HCPCS: 92960; 93005

== ENCOUNTER 2024-06-11 08:48 | Outpatient (RCR) | payer MEDICARE, SELFPAY | END 2024-06-11 23:59 | disposition home or self-care (01) | LOC: CRHB 08:48 | PROVIDERS: ATTENDING PHYSICIAN Internal Medicine Cardiovascular Disease; FAMILY PHYSICIAN Student in an Organized Health Care Education/Training Program | DX: I25.10 Atherosclerotic heart disease of native coronary artery without angina pectoris (principal); Z95.1 Presence of aortocoronary bypass graft; Z95.3 Presence of xenogenic heart valve | CPT/HCPCS: G0422; G0423 ==

== ENCOUNTER 2024-06-26 22:24 | Inpatient (IN) | payer MEDICARE, SELFPAY ==
[2024-06-26] VITALS (14 sets, daily range): BP systolic 81–115; BP diastolic 50–72; BMI 31.6
[2024-06-26 19:22] LABS: % Basophils 0.1 % (0-2); % Eosinophils 1.6 % (0-6); % Immature Granulocytes 0.6 % (0-0.5); % Lymphocytes 15.7 % (20.5-51.1); % Monocytes 7.1 % (1.7-9.3); % Neutrophils 74.9 % (42.2-75.2); Absolute Eosinophils 0.1 10^3/uL (0-0.7); Absolute Immature Granulocytes 0.1 10^3/uL (0-0.05); Absolute Lymphocytes 1.2 10^3/uL (1.2-3.4); Absolute Monocytes 0.6 10^3/uL (0.1-0.6); Absolute Neutrophils 5.9 10^3/uL (1.4-6.5); Hematocrit 38.7 % (39.0-52.0); Hemoglobin 13.4 g/dL (13.0-18.0); Mean Corp Hgb Conc. 34.6 g/dL (33.0-37.0); Mean Corpuscular Hgb 29.9 pg (27.0-31.0); Mean Corpuscular Volume 86.4 fL (80.0-94.0); Mean Platelet Volume 8.9 fL (7.4-10.4); Nucleated Red Blood Cells % 0 % (-); Platelet Count 197 10^3/uL (130-400); Red Blood Cell Count 4.48 10^6/uL (4.70-6.10); Red Cell Dist. Width 13.6 % (11.5-14.5); White Blood Cell Count 7.9 10^3/uL (4.8-10.8)
[2024-06-26 19:44] LABS: ALT (SGPT) 43 U/L (0-50); AST (SGOT) 29 U/L (17-59); Albumin 4.1 g/dl (3.5-5.0); Alkaline Phosphatase 82 U/L (38-126); Blood Urea Nitrogen 17 mg/dl (9-20); Calcium 9.5 mg/dl (8.4-10.2); Carbon Dioxide 24 mmol/L (22-30); Chloride 102 mmol/L (98-107); Glucose 120 mg/dl (70-99); Potassium 4.4 mmol/L (3.5-5.1); Sodium 138 mmol/L (135-145); Total Protein 7.4 g/dl (6.3-8.2); eGFR 49.47
[2024-06-26 19:47] LABS: Troponin I < 0.012 ng/ml
[2024-06-26 19:48] LABS: Lactic Acid 0.9 mmol/L (0.7-2.0)
[2024-06-26 19:52] LABS: COVID-19 Antigen Negative (Negative)
[2024-06-26] MEDS: NSS 1000 IV ×2 (20:34→23:47)
[2024-06-26 20:38] LABS: Urine Albumin 2+ (Neg - Trace); Urine Bilirubin Negative (Negative); Urine Character Very Cloudy (Clear); Urine Color Brown; Urine Glucose Negative (Negative); Urine Ketone Trace (Negative); Urine Leukocyte 1+ (Negative); Urine Nitrite Negative (Negative); Urine Occult Blood 4+ (Negative); Urine Specific Gravity 1.015 (<1.030); Urine Urobilinogen 1+ (Neg - 1+)
[2024-06-26 20:49] LABS: Urine Red Blood Cell >100 /HPF (0-2)
--- NOTE | 2024-06-26 22:11 | HPS.HSE ---
Family Physician
-
Family Physician: Daniel Nick DO
Chief Complaint
-
Fever, Myalgias
History of Present Illness
Patient is a 69y M with PMH significant for ASCVD, s/p AVR and atrial fibrillation who presents to ED complaining of fevers, malaise and muscle aches for the past 24 hours or so. Patient states that he started to feel poorly last PM with
shaking and chills while in bed. He had poor appetite for dinner last PM. Today he woke with diffuse muscle aches, fatigue and malaise. No cough, dyspnea, N/V, sore throat, etc.
Patient presented to an Urgent Care for evaluation and was noted there to have temperature to 102. Rapid Flu was reportedly negative and he was referred to the ED for further evaluation.
Patient complains of feeling lightheaded / dizzy with standing and notes that he nearly passed out here in the waiting room.
He feels better now from arrival after IVFs were administered.
Patient states that he has had gross hematuria for the past 2-3 weeks. He has been evaluated by Urology and had a CT A/P done earlier this week (at [place]) that was reportedly unremarkable. A cystoscopy is planned for further evaluation.
Patient complains of persistent urinary pressure and mild dysuria. No flank pain.
Patient is s/p relatively recent cardiac surgery 04/28/24. Underwent CABG x 1, BioAVR, AtriClip placement at that time. He developed post-op A-Fib / Flutter.
He underwent Cardioversion on 06/04/24 - but went back into A-Fib / Flutter within a week.
Medical History
Past Medical History
Past Medical History: Reports Other
Additional Past Medical History:
ASCVD
Persistent A-Fib / Flutter
Aortic Stenosis
Hypertension
Gout
BPH
Nephrolithiasis
Past Surgical History: Reports Other
Additional Past Surgical History:
CABG x 1 / BioAVR / AtriClip (04/28/24)
PTCA with Stent
PVI Ablation
Loop Recorder Implanted (x 2)
Facial Reconstruction
Social History
Tobacco: Non-smoker
Alcohol: Occasional
Drug: None
Personal:
Living: With Family
Family History
Family History: Other (Father: CAD Mother: Lung Cancer)
Allergies / Home Medications
Allergies reflects when Allergies were last updated in [email or web address].
Home Medications with original date entered in [email or web address]
Allergy/Medication List:
Allergies
Allergy/AdvReac Type Severity Reaction Status Date / Time
No Known Allergies Allergy Verified 06/26/24 18:26
Home Medications
allopurinol 300 mg tablet 300 mg PO QPM Gout 03/16/24
aspirin 81 mg chewable tablet 81 mg PO BID Blood Clot Prevention/Tx 03/16/24
atorvastatin 80 mg tablet 80 mg PO QPM High Cholesterol 03/16/24
amiodarone 200 mg tablet 200 mg PO BID Arrhythmia #60 tabs 05/03/24
apixaban 5 mg tablet (Eliquis) 5 mg PO BID Blood clot prevention/tx #60 tabs 05/03/24
pantoprazole 40 mg tablet,delayed release 40 mg PO DAILY GI prophylaxis while on Eliquis #30 tabs 05/03/24
ascorbic acid (vitamin C) 500 mg tablet (Vitamin C) 500 mg PO DAILY 06/26/24
cyanocobalamin (vitamin B-12) 1,000 mcg tablet 1,000 mcg PO DAILY 06/26/24
famotidine 40 mg tablet 40 mg PO HS 06/26/24
metoprolol succinate 100 mg tablet,extended release 24 hr (Toprol XL) 150 mg PO DAILY Heart disease/condition 06/26/24
tamsulosin 0.4 mg capsule 0.4 mg PO DAILY 06/26/24
Review of Systems
-
History Source: Patient
A 12 point ROS was completed and negative except as noted: Yes
Constitutional: Reports Fever, Fatigue and Chills
EENT: Denies Sore Throat
Respiratory: Denies Cough or Trouble Breathing
Cardiac: Denies Chest Pain, Diaphoresis, Palpitations or Syncope
Abdomen/GI: Reports Anorexia; Denies Abdominal Pain, Nausea, Vomiting, Diarrhea, Bloody Stools or Black Stools
: Reports Dysuria and Bleeding; Denies Frequency, Flank Pain or Incontinence
Musculoskeletal: Reports Muscle Pain; Denies Joint Pain or Edema
Neurological: Reports Dizzy; Denies Headache
Psych: Denies Depression or Anxiety
Physical Exam
Vital Signs
Vital Signs
Temp Pulse Resp BP Pulse Ox
99.8 F 66 16 115/57 98
06/26/24 18:21 06/26/24 22:00 06/26/24 22:00 06/26/24 22:00 06/26/24 22:00
Physical Exam
General: Other (69y M in no acute distress.)
HEENT: Moist mucous membranes and PERRLA
Respiratory: Clear; No Wheezes, Rales or Rhonchi
Cardiac: S1/S2 and Irregular Rhythm; No Murmur
GI: Soft, Non Tender, Non Distended and Normal Bowel Sounds
Genito-urinary: No costovertebral tender
Musculoskeletal: No Clubbing, No Cyanosis and No Edema
Neuro: AO x 3
Laboratory Results
-
06/26/24 19:08
06/26/24 19:08
Laboratory Results
Lactic Acid 0.9 mmol/L (0.7-2.0) 06/26/24 19:25
Total Bilirubin 1.0 mg/dl (0.2-1.3) 06/26/24 19:08
AST 29 U/L (17-59) 06/26/24 19:08
ALT 43 U/L (0-50) 06/26/24 19:08
Alkaline Phosphatase 82 U/L (38-126) 06/26/24 19:08
Troponin I < 0.012 ng/ml 06/26/24 19:08
Impression/Plan
-
A/P: Patient is a 69y M with PMH significant for ASCVD, A-Fib and s/p AVR who presents to ED complaining of fevers, chills and myalgias.
Fever / Myalgias
- Admit for further evaluation and treatment.
- Unclear source of fever - possible viral syndrome. COVID / Flu negative.
- Blood cultures x 2 sets given presence of AVR, etc.
- Empiric abx after cultures obtained and follow-up those results.
- Follow temperature curve and monitor for any new / focal symptoms.
- Investigate potential urinary source as outlined below.
NELSY
Hematuria
Nephrolithiasis
- SCr = 1.5 compared to baseline of 1.0.
- Hematuria x several weeks on Eliquis and BID ASA.
- Seen by Urology and reportedly had unremarkable CT scan earlier this week.
- Try to obtain those records, but will check non-contrasted CT now to rule out infected stone, etc.
- Abx as noted above.
- IVF support and follow for improvement in renal function.
- Avoid hypotension, nephrotoxic agents.
Hypotension
- Likely secondary to acute infection / sepsis.
- No significant noted volume loss. ? hematuria though Hgb stable.
- Holding parameters for antihypertensive medications.
- IVF support overnight and follow for improvement.
- +/- pressors if needed to maintain adequate perfusion.
ASCVD
Persistent Atrial Fibrillation
- Stable. Continue amiodarone at current dose for now.
- Decrease metoprolol and add holding parameters for BP as noted above.
- Monitor on telemetry.
- Continue Eliquis for now - hold if evidence of obstructing stone on CT.
- Continue other CV medications.
Aortic Stenosis s/p BioAVR
- Check Echo given fever, hypotension, etc.
- Follow-up blood culture results.
BPH
- Hold tamsulosin given hypotension / orthostasis.
- Bladder scan protocol and straight cath / [place] if needed.
Gout
- No acute joint pain, erythema, etc.
- Continue allopurinol for prevention.
GERD
- Stable. No complaints of heartburn / reflux.
- Patient indicates that meds started prophylactically given Eliquis / ASA therapies.
- Hold PPI for now given NELSY.
- Continue famotidine.
DVT Prophylaxis: On Eliquis
Code Status: Full
[2024-06-26 22:29] LABS: Lactic Acid 0.9 mmol/L (0.7-2.0)
[2024-06-26] MEDS: ZOSYN 50 IV (23:48)
[2024-06-27] VITALS (30 sets, daily range): BP systolic 96–149; BP diastolic 49–107; BMI 31.6
[2024-06-27] MEDS: ZOSYN IV (00:27)
[2024-06-27] MEDS: VANCOCIN 540 MG IV (01:21)
--- NOTE | 2024-06-27 02:56 | PTCARENOTE ---
Pt arrived to floor via stretcher to the ER, pt ambulatory into room without difficulty. Pt used bathroom, settled in bed. PT AAOx3. HR 100-125 in Afib on the monitor with PVC's, HR irreg. POX 95% on RA, lungs clear. Hypo bowel, round abd. Palpable
peripheral pulses present. Left AC int infusing NSS@125ml/hr as ordered. Pt denies any complaints at this time. Skin intact. Call diaz in reach. Will continue to monitor.
[2024-06-27] MEDS: ZOSYN 50 IV ×2 (05:41→11:04)
[2024-06-27 06:21] LABS: Hematocrit 32.6 % (39.0-52.0); Hemoglobin 11.2 g/dL (13.0-18.0); Mean Corp Hgb Conc. 34.4 g/dL (33.0-37.0); Mean Corpuscular Hgb 30.3 pg (27.0-31.0); Mean Corpuscular Volume 88.1 fL (80.0-94.0); Platelet Count 164 10^3/uL (130-400); Red Cell Dist. Width 13.6 % (11.5-14.5); White Blood Cell Count 5.9 10^3/uL (4.8-10.8)
[2024-06-27 06:40] LABS: ALT (SGPT) 33 U/L (0-50); AST (SGOT) 25 U/L (17-59); Alkaline Phosphatase 62 U/L (38-126); Blood Urea Nitrogen 16 mg/dl (9-20); Carbon Dioxide 25 mmol/L (22-30); Chloride 106 mmol/L (98-107); Creatine Phosphokinase 58 U/L (55-170); Estimated Creatinine Clearance 66 ml/min; Glucose 94 mg/dl (70-99); Sodium 138 mmol/L (135-145); Total Bilirubin 0.7 mg/dl (0.2-1.3); Total Protein 5.8 g/dl (6.3-8.2); eGFR > 60.00
[2024-06-27 07:08] LABS: TSH Reflex To Free T4 1.66 uIU/ml (0.47-4.68)
[2024-06-27] MEDS: NSS 1000 IV ×2 (08:20→16:33)
--- NOTE | 2024-06-27 08:52 | PHA.VAN.IN ---
Assessment
- Assessment
Renal Function: Appears similar to baseline (down from 1.5 to 1.1)
Concomitant Antimicrobials: pip/tazo
AUC Dosing Plan
- Dosing Variables
Dosing Weight (kg): 91.5
Dosing CrCl (ml/min): 66
Vd coefficient (L/kg): 0.6
- Empiric Dosing
Initial / Loading Dose: 2000 mg LD ~01306/27
Maintenance Regimen: 750 mg q12h - first dose this AM
Estimated AUC (mcg*h/mL): 475
Estimated Peak (mcg*h/mL): 26.9
Estimated Trough (mcg/ml): 14
Estimated Half Life (H): 11.7
- Monitoring
No levels ordered at this time: consider levels when pt nears steady state
Pharmacokinetics Vancomycin I
- -
Patient Age: 69
Patient Sex: Male
Vancomycin Day #: 1
Indication: Bacteremia
Requesting Provider: anna
Height / Weight:
Height 5 ft 7 in
Actual Weight 91.5 kg
Pertinent Past Medical History: BMI 31.6; recent CABG 04/28/24
- Vital Signs / Lab Results
Temp Pulse Resp BP Pulse Ox
97.9 F 106 20 129/67 97
06/27/24 07:00 06/27/24 06:00 06/27/24 06:00 06/27/24 06:00 06/27/24 05:45
Lab Results - Hematology
06/26/24 06/27/24
19:08 05:49
WBC 7.9 5.9
Lab Results - Chemistry
06/26/24 06/27/24
19:08 05:49
BUN 17 16
Creatinine 1.5 H 1.1
Estimated Creat Clear 66
Albumin 4.1 3.0 L
06/26/24 06/26/24
19:25 22:12
Lactic Acid 0.9 0.9
Lab Results - Urine
06/26/24
20:22
Urine Nitrite (Reflex) Negative
Leukocyte Esterase Rfl 1+ A
Urine WBC (Reflex)
Urine Bacteria (Reflex)
Microbiology Results
06/26/24 19:25 Blood Culture - Preliminary
Blood/Venous Positive culture in progress
Gram Stain - Final
[2024-06-27] MEDS: TOPROL XL 50 MG PO ×2 (09:00→20:48)
[2024-06-27] MEDS: LOW STRENGTH ASPIRIN 81 MG PO ×2 (09:00→20:47)
[2024-06-27] MEDS: ELIQUIS 5 MG PO ×2 (09:00→20:47)
--- NOTE | 2024-06-27 09:08 | W.PN.HOSP.TC ---
Today's Communication/Plan
-
Await cultures
Continue antibiotics
ID consult
Urology consult
Assessment / Plan
Assessment / Plan
Gen-AAOx3, NAD
HEENT-NC, AT, anicteric, clear oral mm
Neck-supple
CV-reg, no M, +S1/S2
Lungs-clear B/L
Abd-soft, NT, ND
Ext-no edema
Musculoskeletal-no cyanosis, clubbing
Skin-warm and dry
Neuro-grossly non-focal
Psych-calm, cooperative
Septic shock -presentation with fever, tachycardia, hypotension. Shock resolved. Preliminary blood culture positive for gram-positive cocci in chains. Consult ID. Continue antibiotics. Await cultures. Concern for prosthetic valve endocarditis
given AVR.
NELSY -present on admission and likely due to hypotension, ATN. Improved.
Hematuria -with acute cystitis on CT scan. Evaluated by his urologist recently and plan for cystoscopy in 2 weeks. Will ask urology here to evaluate.
CT scan without hydro utero nephrosis or ureteral calculus. Small number of nonobstructing bilateral intrarenal calculi.
CAD/CABG -underwent single-vessel CABG 04/28/2024, PADRON to LAD. History of proximal LAD stent in the past.
Paroxysmal atrial fibrillation -on Eliquis. Had left atrial appendage occlusion in the past. History of ablation in 2013.
Bioprosthetic AVR -for severe aortic stenosis.
Essential hypertension -Toprol-XL dose reduced due to hypotension on arrival.
Hyperlipidemia -on atorvastatin.
Gout
BPH
Nephrolithiasis
Normocytic anemia -since April. Hemoglobin 11.2 today. Monitor for now.
Obesity due to excess calories
Full code
Anticipated Discharge: > 48 hours
Subjective/Interval History
-
Date of Service: June 27, 2024
Patient seen/examined, no complaints.
Objective Data
-
Labs:
Laboratory Results
06/27/24
05:49
WBC 5.9
Hgb 11.2 L
Hct 32.6 L
Plt Count 164
Sodium 138
Potassium 4.0
Chloride 106
Carbon Dioxide 25
BUN 16
Creatinine 1.1
Glucose 94
Calcium 8.0 L D
Total Bilirubin 0.7
AST 25
ALT 33
Alkaline Phosphatase 62
Vital Signs:
Vital Signs
Temp Pulse Resp BP Pulse Ox
97.9 F 106 20 129/67 97
06/27/24 07:00 06/27/24 06:00 06/27/24 06:00 06/27/24 06:00 06/27/24 05:45
I&O
06/26/24 06/27/24 06/28/24
06:59 06:59 06:59
Intake Total 1655 / 1655
Balance 1655 / 1655
Review of Systems
-
History Source: Patient
All other systems: Reviewed and negative
--- NOTE | 2024-06-27 09:16 | CON.CAR ---
Consultation
Consultation Request
Date/Time Consultation Requested: 06/27/2024
Date/Time Consultation Performed: 06/27/2024
Reason for Consultation: Atrial fibrillation/flutter
Medical History
-
Chief Complaint: Fever
History of Present Illness:
69y M with PMH significant for ASCVD, s/p AVR and atrial fibrillation who presents to ED complaining of fevers, malaise and muscle aches for the past 24 hours or so. Patient states that he started to feel poorly last PM with shaking and
chills while in bed. He had poor appetite for dinner last PM. Today he woke with diffuse muscle aches, fatigue and malaise. No cough, dyspnea, N/V, sore throat, etc.
Patient presented to an Urgent Care for evaluation and was noted there to have temperature to 102. Rapid Flu was reportedly negative and he was referred to the ED for further evaluation.
Patient complains of feeling lightheaded / dizzy with standing and notes that he nearly passed out here in the waiting room.
He feels better now from arrival after IVFs were administered.
Patient states that he has had gross hematuria for the past 2-3 weeks. He has been evaluated by Urology and had a CT A/P done earlier this week (at [place]) that was reportedly unremarkable. A cystoscopy is planned for further evaluation.
Patient complains of persistent urinary pressure and mild dysuria. No flank pain.
Patient is s/p relatively recent cardiac surgery 04/28/24. Underwent CABG x 1, BioAVR, AtriClip placement at that time. He developed post-op A-Fib / Flutter.
He underwent Cardioversion on 06/04/24 - but went back into A-Fib / Flutter within a week.
[id number] score is 3-age, hypertension, CAD
Past Medical History
Past Medical History: Arrhythmias (Paroxysmal atrial fibrillation status post PVI in 2013; status post left atrial appendage clip on 04/28/2024 with CABG), CAD (Status post CABG x 1), HTN, Valvular Disease (Bioprosthetic aortic valve replacement on
04/28/2024) and Other (Gout, BPH, nephrolithiasis.)
Past Surgical History: Other (CABG x 1 / BioAVR / AtriClip (04/28/24), PTCA with Stent, PVI Ablation Loop Recorder Implanted (x 2); Facial Reconstruction)
Social History
Tobacco: Non-Smoker
Alcohol: Occasional
Drug: None
Personal:
Living: With Family
Family History
Family History: Reviewed & Not Pertinent
Allergies / Home Medications
Allergy/AdvReac Type Severity Reaction Status Date / Time
No Known Allergies Allergy Verified 06/26/24 18:26
�Medication �Instructions �Recorded �Confirmed �Type
allopurinol 300 mg tablet 300 mg PO QPM Gout 03/16/24 06/26/24 History
aspirin 81 mg chewable tablet 81 mg PO BID Blood Clot 03/16/24 06/26/24 History
Prevention/Tx
atorvastatin 80 mg tablet 80 mg PO QPM High Cholesterol 03/16/24 06/26/24 History
amiodarone 200 mg tablet 200 mg PO BID Arrhythmia #60 tabs 05/03/24 06/26/24 Rx
apixaban 5 mg tablet (Eliquis) 5 mg PO BID Blood clot 05/03/24 06/26/24 Rx
prevention/tx #60 tabs
pantoprazole 40 mg tablet,delayed 40 mg PO DAILY GI prophylaxis 05/03/24 06/26/24 Rx
release while on Eliquis #30 tabs
ascorbic acid (vitamin C) 500 mg 500 mg PO DAILY 06/26/24 06/26/24 History
tablet (Vitamin C)
cyanocobalamin (vitamin B-12) 1,000 mcg PO DAILY 06/26/24 06/26/24 History
1,000 mcg tablet
famotidine 40 mg tablet 40 mg PO HS 06/26/24 06/26/24 History
metoprolol succinate 100 mg 150 mg PO DAILY Heart 06/26/24 06/26/24 History
tablet,extended release 24 hr disease/condition
(Toprol XL)
tamsulosin 0.4 mg capsule 0.4 mg PO DAILY 06/26/24 06/26/24 History
Review of Systems
-
All other systems: Negative unless noted
Physical Exam
Vital Signs
Temp Pulse Resp BP Pulse Ox
97.9 F 106 20 129/67 97
06/27/24 07:00 06/27/24 06:00 06/27/24 06:00 06/27/24 06:00 06/27/24 05:45
Lab Results
06/27/24 05:49
06/27/24 05:49
Troponin I < 0.012 ng/ml 06/26/24 19:08
Physical Exam
General: Well Developed, Well Nourished and No Apparent Distress
HEENT: Normocephalic and Moist Mucous Membranes
Respiratory: Clear, Crackles and Rhonchi
GI: Soft, Non Tender, Non Distended and Normal Bowel Sounds
Musculoskeletal: No Clubbing, No Cyanosis and No Edema
Neuro: Awake, Alert, Oriented and AO x 3
Impression / Plan
-
69 yo male with PAF s/p PVI (2013), no longer on anticoagulation, CAD and severe, symptomatic aortic stenosis s/p AVR (#23 Inspira's Resilia), CABG x 1 (MERCEDES to LAD), and exclusion of left atrial appendage with 35mm atrial clip is admitted with
early septic shock
#Septic shock
-presentation with fever, tachycardia, hypotension.
- Shock resolved- on low Levophed.
-Preliminary blood culture positive for gram-positive cocci in chains.
- Given prosthetic AVR will rule out endocarditis with ECHO and serial blood cultures.
#PAF/atrial flutter
-S/P PVI 2013, currently in atrial flutter
-Rate is controlled.
-Rate control with metoprolol 25 BID, amiodarone 400 mg BID. Digoxin as needed.
-CHADS2-Vasc = 2 (Age, vascular disease).
-S/P #35 Atriclip LAAE (LOT [id number]) with Dr. Kemp (04/28/2024).
-Started on Eliquis 5 mg twice a day -05/01/2024
-Still on amiodarone with going in and out of atrial flutter versus variable AV conduction
-With ongoing septic shock, we will not consider cardioversion just yet as risk of recurrence is quite high.
-Will start amiodarone bolus and drip. Current RVR may be secondary to ongoing sepsis.
#CAD
-Chronic, progressive.
-Prior PCI in the pLAD. Cardiac catheterization revealed some ISR and de duyen disease post stent.
-S/P 1V CABG (PADRON to LAD) with Dr. Kemp (04/28/2024).
-No sign of ischemia
#Severe aortic valve stenosis
-Chronic, progressive, symptomatic.
-S/P #23 Inspiris Resilia SAVR (SN [id number]) with Dr. Kemp (04/28/2024).
-Post operative management as above.
DATA:
Intraoperative MICHELLE, 04/28/2024:
CONCLUSIONS
Severe aortic stenosis, mild to moderate aortic regurgitation. Valve annulus
23 mm.
Normal left ventricular size and systolic function, no regional wall motion
abnormalities seen, stage I diastolic dysfunction.
Moderate MAC, trace MR.
Mild left atrial enlargement. No thrombus seen in the left atrial appendage.
POST OPERATIVE FINDINGS
Status post aortic valve replacement with 23 mm bioprosthetic aortic valve, the
valve is well-seated, no perivalvular leak, leaflets are functioning well.
Mean gradient is 5 mmHg.
Status post CABG x 1, the left ventricle is vigorously rhonda with EF 60
to 65%. No regional wall motion abnormalities seen.
Status post left atrial appendage exclusion, no flow seen through the left
atrial appendage remnant.
Normal right ventricular size and function.
Trace MR. Trace TR.
Cardiac Catheterization, 03/16/2024:
CORONARY ANGIOGRAPHY
Dominance: Right.
Left Main: Normal.
LAD: There is a patent proximal LAD stent (2010) with mild in-stent stenosis approximately 20-30% in severity. The remainder of the LAD system has trivial luminal disease.
Circumflex: Trivial luminal irregularities.
RCA: Large dominant mildly ectatic vessel with mild luminal irregularities.
Data Reviewed
-
EKG: Tracing Personally Visualized and interpreted and Report Reviewed by me
Radiology: Image Personally Visualized and interpreted
Medical Tests (Nuc Med, Echo etc): Image Personally Visualized and interpreted and Report Reviewed by me
Labs: Labs Reviewed by me, Discussed with Physician, Discussed with Patient and Discussed with Family
Old Records: Reviewed
Critical Care Time (in minutes): 35
[2024-06-27] MEDS: VANCOCIN 150 IV ×2 (09:22→18:52)
--- NOTE | 2024-06-27 09:25 | CM ---
CM met with Faustino to complete IA.
Faustino lives with his in a 1 story home with 1 entry step. [employer] he has been AAOx3, (I) amb and adls, no DME in the home.
Currently on antibiotics, ID and Urology consults pending. Blood and urine cultures pending; Covid negative.
Plan: CM to follow pt course to determine discharge planning needs.
--- NOTE | 2024-06-27 09:30 | PTCARENOTE ---
Complete assessment done and documented. Pt seen by Dr Montes, cardiology and I/D were consulted. Pt's HR 90-120 afib. BP stable. Pt assisted OOB to chair and bathroom, tolerating well. Lobes clear, R/A 99% sat. +BSs. Pt voiding yellow urine in
urinal. IV NS infusing at 125 ml/hr.
[2024-06-27] MEDS: FLOMAX 0.4 MG PO (11:00)
--- NOTE | 2024-06-27 11:17 | CONS.URO ---
Consultation
-
Date/Time Consultation Requested: 06/27
Date/Time Consultation Performed: 06/27 1200
Requesting Provider: Hospitalist
Performing Provider: John
Reason for Consultation: cUTI, urosepsis
Medical History
History of Present Illness
69M presents to ED w/ fevers, malaise, muscle aches x24 hrs.
Denies N/V.
Notes poor appetite.
Seen @ - referred to ED w/ temperature of 102F.
Notes gross hematuria x2-3 weeks.
Follows w/ Dr. Jane in [place] - CTAP completed in past week @[facility] demonstrated no acute urologic pathology.
Scheduled for cysto in early 07/2024.
H/o BPH s/p UroLift procedure in 2022.
Voiding reasonably - mild dysuria.
Past Medical History
Past Medical History: Arrhythmia (afib/atrial flutter), CAD, HTN, Valvular Disease (aortic stenosis) and Other (gout, nephrolithiasis, BPH)
Past Surgical History: Cardiac (CABG x 1 / BioAVR / AtriClip (04/28/24), PTCA with Stent, PVI Ablation, Loop Recorder Implanted (x2)), Urological (UroLift) and Other (facial reconstruction)
Social History
Tobacco: Non-smoker
Alcohol: Occasional
Drug: None
Personal:
Living: With Family
Family History
Family History: Reviewed & Not Pertinent
Allergies/Home Medications
Allergies
Allergy/AdvReac Type Severity Reaction Status Date / Time
No Known Allergies Allergy Verified 06/26/24 18:26
Home Medications
�Medication �Instructions �Recorded �Confirmed �Type
allopurinol 300 mg tablet 300 mg PO QPM Gout 03/16/24 06/26/24 History
aspirin 81 mg chewable tablet 81 mg PO BID Blood Clot 03/16/24 06/26/24 History
Prevention/Tx
atorvastatin 80 mg tablet 80 mg PO QPM High Cholesterol 03/16/24 06/26/24 History
amiodarone 200 mg tablet 200 mg PO BID Arrhythmia #60 tabs 05/03/24 06/26/24 Rx
apixaban 5 mg tablet (Eliquis) 5 mg PO BID Blood clot 05/03/24 06/26/24 Rx
prevention/tx #60 tabs
pantoprazole 40 mg tablet,delayed 40 mg PO DAILY GI prophylaxis 05/03/24 06/26/24 Rx
release while on Eliquis #30 tabs
ascorbic acid (vitamin C) 500 mg 500 mg PO DAILY Supplement 06/26/24 06/26/24 History
tablet (Vitamin C)
cyanocobalamin (vitamin B-12) 1,000 mcg PO DAILY Supplement 06/26/24 06/26/24 History
1,000 mcg tablet
famotidine 40 mg tablet 40 mg PO HS Gastrointestinal Issue 06/26/24 06/26/24 History
metoprolol succinate 100 mg 150 mg PO DAILY Heart 06/26/24 06/26/24 History
tablet,extended release 24 hr disease/condition
(Toprol XL)
tamsulosin 0.4 mg capsule 0.4 mg PO DAILY Urinary Issue 06/26/24 06/26/24 History
Physical Exam
Vital Signs
Vital Signs
Temp Pulse Resp BP Pulse Ox
98.4 F 106 20 137/97 97
06/27/24 11:00 06/27/24 09:00 06/27/24 06:00 06/27/24 09:00 06/27/24 05:45
Lab / Testing Results
Laboratory Results
06/27/24 05:49
06/27/24 05:49
Physical Exam
General: Well Developed, Well Nourished and No Apparent Distress
HEENT: Normocephalic and Anicteric
Respiratory: Non Labored Respirations
Cardiac: Tachycardia
Breast: N/A
GI: Soft, Non Tender and Non Distended
Rectal: Deferred by Provider
Genito-urinary: Bloody Urine
Musculoskeletal: No Edema
Skin: Warm and Dry
Neuro: AO x 3, No Motor Deficits and Nonfocal/Grossly Intact
Hematologic/Lymphatic: No Lymphadenopathy
Psych: Calm and Intact Judgement
Assessment / Plan
-
Urosepsis
Bacteremia
cUTI
BPH s/o UroLift
Non-obstructing bilateral renal stones
UA >100 RBCs
UCx pending
BCx x2 +prelim
Cr WNL
CT imaging/report reviewed => UroLift implants noted, small non-obstructing renal stones, no obstructive uropathy
- Broad spectrum IV antibiotics pending Cx S/S
- Transition to PO treatment course for complicated UTI + bacteremia per ID
- No indication for Oakley catheter
- continue tamsulosin 0.4 mg qhs
- will F/U with Dr. Jane as scheduled in early 07/2024 for cystoscopy
D/w patient.
D/w Dr. Montes.
Data Reviewed
-
Total Time Spent with Patient (in minutes): 45
CT Scan: Image personally visualized and interpreted, Report Reviewed by Me and Discussed with Physician
Lab Data: Labs Reviewed, Discussed with Physician and Discussed with Patient
Old Records: Reviewed
--- NOTE | 2024-06-27 11:22 | CON.ID ---
Consultation
-
Date/Time Consultation Requested: 06/27/24 9:09
Date/Time Consultation Performed: 06/27/24 11:41
Requesting Provider: Dr Montes
Performing Provider: Dr Jordan
Reason for Consultation: gram positive bacteremia, concern for endocarditis
Chief Complaint / Past History
Chief Complaint
Fever, Myalgias
History of Present Illness
Mr Su is a 69 year old male with history of s/p TAVR 04/28/24 who presented here for a two week history of dysuria progressing yesterday to fevers (102), chills, malaise, anorexia and myalgias x24 hours. Later in the day progressed to
dizziness. Denies: cough, dyspnea, sore throat, nausea, vomiting etc. Went to urgent care where influenza screen was negative and he was referred to the ER.
Endorses hematuria x2-3 weeks, negative CT a/p at [place], and planned outpatient cystoscopy. On arrival no flank pain but urinary pressure and dysuria.
Since arrival here patient has been afebrile, bp stable off of pressors, wbc initially 7.9 now 5.9, hgb 11.2, plt 164, cr initially 1.5 now 1.1, lactic acid 0.9 x2, t bili 0.7, ast 25, alt 33, alk phos 62, 06/26 UA >100 rbc/hpf and wbcs are
obsecured by RBCs, covid ag neg, CT a/p without IV or oral contrast: cystitis, possible acute pyelo vs chronic renal disease, minimal ascites and mild hepatomegaly, urine culture pending, two blood cultures almost 3 hours apart both with GPCs in
chains, EKG with a flutter and questionable qtc at 513, TTE pending, patient currently on vancomycin and zosyn, ID is consulted for assistance with management.
Past History
Additional Past Medical History:
ASCVD
Persistent A-Fib / Flutter
Aortic Stenosis
Hypertension
Gout
BPH
Nephrolithiasis
Additional Past Surgical History:
CABG x 1 / BioAVR / AtriClip (04/28/24)
PTCA with Stent
PVI Ablation
Loop Recorder Implanted (x 2)
Facial Reconstruction
Allergy History:
No Known Allergies Allergy (Verified 06/26/24 18:26)
Medications Reviewed: Yes
Social History
Tobacco: Non-Smoker
Alcohol: Occasional
Drug: None
Family History
Family History: Not Pertinent
Review of Systems
Review of Systems
General: Fever and Chills
All systems: All other systems were reviewed and were negative
Vital Signs
Temp Pulse Resp BP Pulse Ox
98.4 F 106 20 137/97 97
06/27/24 11:00 06/27/24 09:00 06/27/24 06:00 06/27/24 09:00 06/27/24 05:45
Physical Exam
Physical Exam
Constitutional: No Acute Distress
Cardiovascular: Regular Rate and S1/S2; Negative Murmur or Rub
Pulmonary: Clear and Symmetric; Negative Wheezes, Rales or Rhonchi
Gastrointestinal: Soft, Non Tender, Non Distended and Normal Bowel Sounds
Genito-Urinary: Other (urine faint red tint); Negative Suprapubic Tenderness or CVA Tenderness
Skin: Warm and Dry; Negative Rash or Jaundice
Neurological: Awake
Lab / Diagnostic Study Results
06/27/24 05:49
06/27/24 05:49
Abs Immat Gran (auto) 0.1 10^3/uL (0-0.05) H 06/26/24 19:08
Absolute Neuts (auto) 5.9 10^3/uL (1.4-6.5) 06/26/24 19:08
Absolute Lymphs (auto) 1.2 10^3/uL (1.2-3.4) 06/26/24 19:08
Absolute Monos (auto) 0.6 10^3/uL (0.1-0.6) 06/26/24 19:08
Absolute Basos (auto) 0.0 10^3/uL (0-0.2) 06/26/24 19:08
Immature Gran % 0.6 % (0-0.5) H 06/26/24 19:08
Neutrophils % 74.9 % (42.2-75.2) 06/26/24 19:08
Lymphocytes % 15.7 % (20.5-51.1) L 06/26/24 19:08
Monocytes % 7.1 % (1.7-9.3) 06/26/24 19:08
Eosinophils % 1.6 % (0-6) 06/26/24 19:08
Basophils % 0.1 % (0-2) 06/26/24 19:08
Lactic Acid 0.9 mmol/L (0.7-2.0) 06/26/24 22:12
Microbiology Results
Micro:
06/26/24 22:12 Blood Culture - Preliminary
Blood/Venous Positive culture in progress
Gram Stain - Final
06/26/24 19:25 Blood Culture - Preliminary
Blood/Venous Positive culture in progress
Gram Stain - Final
06/26/24 20:22 Urine Culture - Pending
Urine
Assessment / Plan
Gram positive bacteremia
Possible endocarditis
Persistent hematuria
TAVR placement - 8 weeks ago
- repeat blood cultures x2 today
- initial blood cultures 3 hours apart both with GPCs in chains
- UA with hematuria; given history initial source likely
- follow up urine culture
- agree with vancomycin, shock has resolved
- stop zosyn
- await TTE
- EKG without new blocks
- may consider sending RF if ford criteria are inconclusive
AW
[2024-06-27] MEDS: CORDARONE 103 MG IV (13:15)
[2024-06-27] MEDS: CORDARONE 518 MG IV (13:30)
--- NOTE | 2024-06-27 15:36 | PTCARENOTE ---
Amiodarone bolus given over 10 mins, followed by amiodarone drip at 1330. Pt' HR afib 102 when drip started. New INT 22g placed by IV team on R brachial, 22 g. Pt's HR remains afib at this time but rate is controlled at 88. Pt's blood cultures
results back this morning, showing gram + cocci in pt's blood. Pt seen by Dr Jordan. in room also, all questions were answered by .
[2024-06-27] MEDS: TYLENOL 650 MG PO (16:06)
[2024-06-27] MEDS: LIPITOR 80 MG PO (18:50)
[2024-06-27] MEDS: ZYLOPRIM 300 MG PO (18:50)
--- NOTE | 2024-06-27 21:30 | PTCARENOTE ---
Report received from previous shift RN [id number]. Pt sitting in chair, AAOx3, denies complaints. Lung sounds are clear throughout, pt denies cough/SOB, pox 93-96% on room air. Telemetry rhythm reveals Afib w oc PVCs, HR 80-110's, trace edema of b/l LE,
palpable peripheral pulses. IV Amio gtt initiated this afternoon, dose adjusted per protocol, see flowsheet. +BS, abdomen soft round nontender, tolerating regular diet. Urinal at bedside, pt voiding yellow urine without difficulty. Skin intact. R AC
int with Amio gtt per orders. L AC int w IVF per orders. Safe environment maintained, call diaz within reach. Will monitor closely.
[2024-06-27] MEDS: PEPCID 20 MG PO (22:26)
[2024-06-28] VITALS (20 sets, daily range): BP systolic 108–171; BP diastolic 76–125; BMI 32.2
[2024-06-28] MEDS: NSS 1000 IV (01:04)
--- NOTE | 2024-06-28 04:30 | PTCARENOTE ---
Pt slept intermittently throughout night. Urinating clear yellow urine every 1-2hrs without difficulty. Continues with IV Amiodarone via R AC and IVF via L AC int. Remains in A-fib w oc PVCs, HR 70-110's. Will monitor.
[2024-06-28 04:50] LABS: Hepatitis C Antibody Negative (Negative)
[2024-06-28] MEDS: VANCOCIN 150 IV (05:16)
[2024-06-28] MEDS: FLOMAX 0.4 MG PO (08:13)
[2024-06-28] MEDS: LOW STRENGTH ASPIRIN 81 MG PO ×2 (08:14→20:08)
[2024-06-28] MEDS: TOPROL XL 50 MG PO ×2 (08:14→20:08)
[2024-06-28] MEDS: ELIQUIS 5 MG PO ×2 (08:14→20:15)
--- NOTE | 2024-06-28 08:58 | W.PN.ID1 ---
Date of Service
Date of Service: June 28, 2024
Today's Communication
c/w vanc add ceftriaxone
Assessment / Plan
Gram positive bacteremia
Possible endocarditis
Probable UTI
Persistent hematuria
TAVR placement - >8 weeks ago
- repeat blood cultures 06/27 NGTD
- initial blood cultures 3 hours apart both with GPCs in chains
- UA with hematuria; given history initial source likely
- follow up urine culture
- agree with vancomycin
- add ceftriaxone
- await TTE
- EKG without new blocks
- may consider sending RF if ford criteria are inconclusive
AW
Chief Complaint
-: Bacteremia
Subjective / Review of Systems
remains afebrile
bp stable
am labs pending today
no complaints
Vital Signs / Physical Exam
Vital Signs
Vital Signs
Temp Pulse Resp BP Pulse Ox
98.0 F 68 16 136/81 97
06/28/24 08:01 06/28/24 07:00 06/28/24 07:00 06/28/24 07:00 06/28/24 05:00
Physical Exam
Constitutional: No Acute Distress
Cardiovascular: Regular Rate and S1/S2; Negative Murmur or Rub
Pulmonary: Clear and Symmetric; Negative Wheezes or Rales
Gastrointestinal: Soft, Non Tender, Non Distended and Normal Bowel Sounds
Extremities: Splinter Hemorrhage (right thumb); Negative [place] Lesions
Skin: Warm and Dry; Negative Rash or Jaundice
Neurological: Awake
Objective Data
Lab Data
Estimated Creat Clear 66 ml/min 06/27/24 05:49
Lactic Acid 0.9 mmol/L (0.7-2.0) 06/26/24 22:12
Total Bilirubin 0.7 mg/dl (0.2-1.3) 06/27/24 05:49
AST 25 U/L (17-59) 06/27/24 05:49
ALT 33 U/L (0-50) 06/27/24 05:49
Alkaline Phosphatase 62 U/L (38-126) 06/27/24 05:49
Most recent labs reviewed.
Micro Results:
06/27/24 15:56 Blood Culture - Pending
Blood/Venous
06/27/24 15:56 Blood Culture - Pending
Blood/Venous
06/26/24 22:12 Blood Culture - Preliminary
Blood/Venous Positive culture in progress
Gram Stain - Final
06/26/24 19:25 Blood Culture - Preliminary
Blood/Venous Positive culture in progress
Gram Stain - Final
06/26/24 20:22 Urine Culture - Pending
Urine
[2024-06-28 09:41] LABS: % Basophils 0.5 % (0-2); % Eosinophils 11.4 % (0-6); % Immature Granulocytes 0.3 % (0-0.5); % Lymphocytes 24.9 % (20.5-51.1); % Neutrophils 53.9 % (42.2-75.2); Absolute Eosinophils 0.4 10^3/uL (0-0.7); Absolute Lymphocytes 0.9 10^3/uL (1.2-3.4); Absolute Monocytes 0.3 10^3/uL (0.1-0.6); Hematocrit 34.3 % (39.0-52.0); Hemoglobin 11.9 g/dL (13.0-18.0); Mean Corp Hgb Conc. 34.7 g/dL (33.0-37.0); Mean Corpuscular Hgb 30.6 pg (27.0-31.0); Mean Corpuscular Volume 88.2 fL (80.0-94.0); Mean Platelet Volume 9.3 fL (7.4-10.4); Nucleated Red Blood Cells % 0 % (-); Platelet Count 152 10^3/uL (130-400); Red Blood Cell Count 3.89 10^6/uL (4.70-6.10); Red Cell Dist. Width 13.7 % (11.5-14.5); White Blood Cell Count 3.8 10^3/uL (4.8-10.8)
--- NOTE | 2024-06-28 09:49 | PTCARENOTE ---
Report received from previous shift RN. Pt sitting in chair, AAOx3, denies complaints. Lung sounds are clear throughout, pt denies cough/SOB, pox 96% on room air. Telemetry rhythm reveals Aflutter w oc PVCs, HR 80-110's, trace edema of b/l LE,
palpable peripheral pulses. IV Amio gtt continues per protocol, see flowsheet. +BS, abdomen soft round nontender, tolerating regular diet. Urinal at bedside, pt voiding yellow urine without difficulty. To bathroom with +BM. Skin intact. Safe
environment maintained, call diaz within reach. Will monitor closely.
[2024-06-28 09:50] LABS: ALT (SGPT) 40 U/L (0-50); AST (SGOT) 40 U/L (17-59); Albumin 3.4 g/dl (3.5-5.0); Alkaline Phosphatase 57 U/L (38-126); Blood Urea Nitrogen 14 mg/dl (9-20); Calcium 8.8 mg/dl (8.4-10.2); Carbon Dioxide 26 mmol/L (22-30); Chloride 105 mmol/L (98-107); Estimated Creatinine Clearance 92 ml/min; Glucose 164 mg/dl (70-99); Potassium 4.3 mmol/L (3.5-5.1); Sodium 140 mmol/L (135-145); Total Bilirubin 0.6 mg/dl (0.2-1.3); Total Protein 6.2 g/dl (6.3-8.2); eGFR > 60.00
--- NOTE | 2024-06-28 09:54 | W.PN.CD ---
Today's Communication / Plan
-
- Switch IV amiodarone to PO today
- Rate control
- ECHO showed no significant vegetations. If clinically indicated, can get MICHELLE for vegetations.
Impression / Plan
-
69 yo male with PAF s/p PVI (2013), no longer on anticoagulation, CAD and severe, symptomatic aortic stenosis s/p AVR (#23 Inspira's Resilia), CABG x 1 (MERCEDES to LAD), and exclusion of left atrial appendage with 35mm atrial clip is admitted with
early septic shock
#Septic shock
-presentation with fever, tachycardia, hypotension.
- Shock resolved- on low Levophed.
- Preliminary blood culture positive for gram-positive cocci in chains x 2
- Given prosthetic AVR will rule out endocarditis risk is high. ECHO today with serial blood cultures.
- ECHO 06/28/24: Normally functioning bioprosthetic aortic valve - Mean gradient 8mmHg - no aortic regurgitation is seen.
#PAF/atrial flutter
-S/P PVI 2013, currently in atrial flutter
-Rate is controlled.
-Rate control with metoprolol 25 BID, amiodarone 400 mg BID. Digoxin as needed.
-CHADS2-Vasc = 2 (Age, vascular disease).
-S/P #35 Atriclip LAAE (LOT [id number]) with Dr. Kemp (04/28/2024).
-Started on Eliquis 5 mg twice a day -05/01/2024
-Rate improved with amiodarone- drip. will switch to PO again with 400 mg BID dose
-If RVR noted, can give digoxin 250 mcg qd
#CAD
-Chronic, progressive.
-Prior PCI in the pLAD. Cardiac catheterization revealed some ISR and de duyen disease post stent.
-S/P 1V CABG (PADRON to LAD) with Dr. Kemp (04/28/2024).
-No sign of ischemia
#Severe aortic valve stenosis
-Chronic, progressive, symptomatic.
-S/P #23 Inspiris Rafaa SAVR (SN [id number]) with Dr. Kemp (04/28/2024).
-Post operative management as above.
DATA:
Intraoperative MICHELLE, 04/28/2024:
CONCLUSIONS
Severe aortic stenosis, mild to moderate aortic regurgitation. Valve annulus
23 mm.
Normal left ventricular size and systolic function, no regional wall motion
abnormalities seen, stage I diastolic dysfunction.
Moderate MAC, trace MR.
Mild left atrial enlargement. No thrombus seen in the left atrial appendage.
POST OPERATIVE FINDINGS
Status post aortic valve replacement with 23 mm bioprosthetic aortic valve, the
valve is well-seated, no perivalvular leak, leaflets are functioning well.
Mean gradient is 5 mmHg.
Status post CABG x 1, the left ventricle is vigorously rhonda with EF 60
to 65%. No regional wall motion abnormalities seen.
Status post left atrial appendage exclusion, no flow seen through the left
atrial appendage remnant.
Normal right ventricular size and function.
Trace MR. Trace TR.
Cardiac Catheterization, 03/16/2024:
CORONARY ANGIOGRAPHY
Dominance: Right.
Left Main: Normal.
LAD: There is a patent proximal LAD stent (2010) with mild in-stent stenosis approximately 20-30% in severity. The remainder of the LAD system has trivial luminal disease.
Circumflex: Trivial luminal irregularities.
RCA: Large dominant mildly ectatic vessel with mild luminal irregularities.
Physical Exam
Vital Signs/Labs
Vital Signs
Temp Pulse Resp BP Pulse Ox
98.0 F 117 23 164/107 96
06/28/24 08:01 06/28/24 09:28 06/28/24 08:08 06/28/24 08:08 06/28/24 08:00
06/27/24 06/28/24 06/29/24
06:59 06:59 06:59
Actual Weight 91.5 kg 93.1 kg
06/28/24 09:27
06/28/24 09:27
LAB Results
06/26/24
19:08
Troponin I < 0.012
Physical Exam
Constitutional: No acute distress and Comfortable
EENT: Anicteric and Moist mucous membranes
Cardiovascular: Pedal edema is absent, JVD pressure is normal, Rhythm/rate is irregular and Systolic murmur present
Respiratory: Respiratory effort normal, Crackles Absent and Rhonchi Absent
GI: Soft, Non tender and Normal bowel sounds
Neuro/Psych: Alert, Oriented and AO x 3
Data Reviewed
-
Date of Service: June 28, 2024
Medical Decision Making: Reviewed Test Results, Test Interpretation and Review of Case with other Provider
EKG: Tracing Personally Visualized and interpreted
Echo: Tracing Personally Visualized and interpreted
Medical Tests (PFT, Pathology etc): Discussed with Physician, Discussed with Patient and Discussed with Family
Labs: Labs Reviewed by me
Old Records: Reviewed
Critical Care Time (in minutes): 32
[2024-06-28] MEDS: STERILE WATER FOR INJECTION 20 ML IV ×2 (10:16→21:24)
[2024-06-28] MEDS: ROCEPHIN 2000 MG IV ×2 (10:16→21:23)
--- NOTE | 2024-06-28 11:11 | PHA.VAN.FU ---
Vancomycin Assessment / Plan
- Assessment
Renal Function: SCR Decreasing (1.5->1.1->0.8)
WBC's are: Trending Down
In the past 24 hrs, patient has been: Afebrile
Concomitant Antimicrobials: ceftriaxone
- Dosing Plan
Adjust Regimen to: 1000 mg q12h - begin at 1800
Dosing Comments: increasing dose due to inproved renal function
- Monitoring Plan
No level(s) ordered at this time: consider levels after tomorrow ann marie dose ( 3rd 1000 mg dose)
- Follow Up
Pharmacy will continue to follow.
Vancomycin Follow UP
- -
Patient Age: 69
Patient Sex: Male
Vancomycin Day #: 2
Indication: Bacteremia
Requesting Provider: anna
Height / Weight:
Height 5 ft 7 in
Actual Weight 93.1 kg
Pertinent Past Medical History: BMI 31.6; recent CABG 04/28/24
- Vital Signs / Lab Results
Temp Pulse Resp BP Pulse Ox
98.0 F 68 20 130/85 96
06/28/24 08:01 06/28/24 10:00 06/28/24 10:00 06/28/24 10:00 06/28/24 08:00
Lab Results - Hematology
06/26/24 06/27/24 06/28/24
19:08 05:49 09:27
WBC 7.9 5.9 3.8 L
Lab Results - Chemistry
06/26/24 06/27/24 06/28/24
19:08 05:49 09:27
BUN 17 16 14
Creatinine 1.5 H 1.1 0.8
Estimated Creat Clear 66 92
Albumin 4.1 3.0 L 3.4 L
06/26/24 06/26/24
19:25 22:12
Lactic Acid 0.9 0.9
Microbiology Results
06/26/24 22:12 Blood Culture - Preliminary
Blood/Venous Positive culture in progress
Gram Stain - Final
06/26/24 19:25 Blood Culture - Preliminary
Blood/Venous Enterococcus species
Gram Stain - Final
06/26/24 20:22 Urine Culture - Final
Urine NO GROWTH
--- NOTE | 2024-06-28 13:21 | W.PN.HOSP.TC ---
Today's Communication/Plan
-
Monitor vital signs see plan
Continue with amiodarone per cardiology
Continue Eliquis
Echo
Continue antibiotics
Continue to monitor blood culture
Assessment / Plan
Assessment / Plan
Gen-AAOx3, NAD
HEENT-NC, AT, anicteric, clear oral mm
Neck-supple
CV-reg, no M, +S1/S2
Lungs-clear B/L
Abd-soft, NT, ND
Ext-no edema
Musculoskeletal-no cyanosis, clubbing
Skin-warm and dry
Neuro-grossly non-focal
Psych-calm, cooperative
Septic shock -presentation with fever, tachycardia, hypotension. Required low-dose Levophed. Now off. shock resolved. Preliminary blood culture positive for Enterococcus. ID following. Continue antibiotics. Await cultures. Concern for
prosthetic valve endocarditis given AVR.
echo pending
Probable urinary tract infection
Continue to monitor on antibiotics
NELSY -present on admission and likely due to hypotension, ATN. resolved
Hematuria -with acute cystitis on CT scan. Evaluated by his urologist recently and plan for cystoscopy in 2 weeks. urology following. F/U with Dr. Jane as scheduled in early 07/[address] scan without hydro utero nephrosis or ureteral calculus. Small number of nonobstructing bilateral intrarenal calculi.
CAD/CABG -underwent single-vessel CABG 04/28/2024, PADRON to LAD. History of proximal LAD stent in the past.
Paroxysmal atrial fibrillation -on Eliquis. Had left atrial appendage occlusion in the past. History of ablation in 2013.
Currently going in and out of the atrial flutter, started on amiodarone.
Bioprosthetic AVR -for severe aortic stenosis.
Essential hypertension -Toprol-XL dose reduced due to hypotension on arrival.
Hyperlipidemia -on atorvastatin.
Gout
BPH
Nephrolithiasis
Normocytic anemia -since April. Monitor for now.
Obesity due to excess calories
Full code
I spent a total of 53 minutes with the patient or on the floor. More than 50% of this time involved counseling and coordination of care.
Anticipated Discharge: > 48 hours
Subjective/Interval History
-
Date of Service: June 28, 2024
denies pain
Objective Data
-
Labs:
Laboratory Results
06/28/24
09:27
WBC 3.8 L
Hgb 11.9 L
Hct 34.3 L
Plt Count 152
Sodium 140
Potassium 4.3
Chloride 105
Carbon Dioxide 26
BUN 14
Creatinine 0.8
Glucose 164 H
Calcium 8.8
Total Bilirubin 0.6
AST 40
ALT 40
Alkaline Phosphatase 57
Vital Signs:
Vital Signs
Temp Pulse Resp BP Pulse Ox
98.1 F 78 23 108/80 96
06/28/24 11:53 06/28/24 12:00 06/28/24 12:00 06/28/24 11:00 06/28/24 08:00
I&O
06/27/24 06/28/24 06/29/24
06:59 06:59 06:59
Intake Total 1655 / 1655 4210.9 / 4352.6 350.2 / 350.2
Output Total 3700 / 4000 300 / 300
Balance 1655 / 1655 510.9 / 352.6 50.2 / 50.2
--- NOTE | 2024-06-28 14:51 | CM ---
CM following re: discharge planning.
Reviewed pt's chart, met with pt and pt's spouse at bedside.
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 Pt stated he has been taking Eliquis since April of this year, received 30 days coupon at that time and now he is getting samples from cardiology
office because his insurance does not cover Eliquis.
D/C plan: home with anticipated no needs. Spouse to transport at discharge.
CM will follow with discharge plan updates as hospitalization progresses.
[2024-06-28] MEDS: VANCOCIN 200 IV (17:37)
[2024-06-28] MEDS: LIPITOR 80 MG PO (17:38)
[2024-06-28] MEDS: ZYLOPRIM 300 MG PO (17:38)
--- NOTE | 2024-06-28 20:10 | PTCARENOTE ---
Received patient from ICU via wheelchair. Patient ambulated from wheelchair to bed independently. AAOx3 no current complaints of pain. Oriented patient to room and placed call diaz within reach.
[2024-06-28] MEDS: PACERONE 400 MG PO (20:15)
[2024-06-28] MEDS: PEPCID 20 MG PO (20:16)
[2024-06-29] VITALS (7 sets, daily range): BP systolic 115–168; BP diastolic 52–118; PULSE 73–127; BMI 31.6
[2024-06-29] MEDS: PACERONE 400 MG PO ×2 (03:57→20:43)
[2024-06-29 04:54] LABS: % Basophils 0.2 % (0-2); % Eosinophils 8.1 % (0-6); % Immature Granulocytes 0.3 % (0-0.5); % Lymphocytes 24.3 % (20.5-51.1); % Neutrophils 55.1 % (42.2-75.2); Absolute Eosinophils 0.5 10^3/uL (0-0.7); Absolute Lymphocytes 1.5 10^3/uL (1.2-3.4); Absolute Monocytes 0.7 10^3/uL (0.1-0.6); Absolute Neutrophils 3.3 10^3/uL (1.4-6.5); Mean Corp Hgb Conc. 36.4 g/dL (33.0-37.0); Mean Corpuscular Hgb 31.6 pg (27.0-31.0); Mean Corpuscular Volume 86.8 fL (80.0-94.0); Mean Platelet Volume 9.3 fL (7.4-10.4); Nucleated Red Blood Cells % 0 % (-); Platelet Count 172 10^3/uL (130-400); Red Cell Dist. Width 13.4 % (11.5-14.5)
[2024-06-29 05:21] LABS: ALT (SGPT) 62 U/L (0-50); AST (SGOT) 60 U/L (17-59); Albumin 3.4 g/dl (3.5-5.0); Alkaline Phosphatase 59 U/L (38-126); Blood Urea Nitrogen 14 mg/dl (9-20); Calcium 9.3 mg/dl (8.4-10.2); Carbon Dioxide 23 mmol/L (22-30); Chloride 104 mmol/L (98-107); Estimated Creatinine Clearance 92 ml/min; Glucose 101 mg/dl (70-99); Potassium 4.4 mmol/L (3.5-5.1); Sodium 141 mmol/L (135-145); Total Bilirubin 0.4 mg/dl (0.2-1.3); Total Protein 6.5 g/dl (6.3-8.2); eGFR > 60.00
[2024-06-29] MEDS: VANCOCIN 200 IV (05:25)
[2024-06-29] MEDS: TOPROL XL 50 MG PO ×2 (06:44→20:42)
--- NOTE | 2024-06-29 07:05 | W.PN.UPDATE ---
Update Note
Progress Note Update
RN notified INFORMATION BROKER, HR 110-118, BP stable, Patients states palpitation which is chronic, Denies any chest pain. EKG noted ATRIAL FIBRILLATION WITH RAPID VENTRICULAR RESPONSE WITH PREMATURE VENTRICULAR OR ABERRANTLY CONDUCTED COMPLEXES, Advised RN to
give Amiodarone early, EKG ordered in AM, which showed UNUSUAL P AXIS AND SHORT IA, PROBABLE JUNCTIONAL TACHYCARDIA RIGHT BUNDLE BRANCH BLOCK, HR 115. Advised RN to give Metoprolol dose early, and let Information Delivery Analyst know. per RN, Information Delivery Analyst will
see patient in AM. no new symptoms.
[2024-06-29] MEDS: ELIQUIS 5 MG PO ×2 (09:24→20:43)
[2024-06-29] MEDS: ROCEPHIN 2000 MG IV ×2 (09:24→21:28)
[2024-06-29] MEDS: LOW STRENGTH ASPIRIN 81 MG PO ×2 (09:24→20:42)
[2024-06-29] MEDS: STERILE WATER FOR INJECTION 20 ML IV ×2 (09:24→21:27)
[2024-06-29] MEDS: FLOMAX 0.4 MG PO (09:24)
--- NOTE | 2024-06-29 09:48 | PHA.VAN.FU ---
Vancomycin Assessment / Plan
- Assessment
Renal Function: Stable
WBC's are: WNL
In the past 24 hrs, patient has been: Afebrile
Concomitant Antimicrobials: ceftriaxone
- Dosing Plan
Continue: Vanc 1000mg Q12H
- Monitoring Plan
No level(s) ordered at this time: consider levels in next few days
- Follow Up
Pharmacy will continue to follow.
Vancomycin Follow UP
- -
Patient Age: 69
Patient Sex: Male
Vancomycin Day #: 3
Indication: Bacteremia
Requesting Provider: Dr. Nichols
Pertinent Antimicrobial Allergies:
NKDA
Height / Weight:
Height 5 ft 7 in
Actual Weight 91.427 kg
Pertinent Past Medical History: BMI 31.6; recent CABG 04/28/24
- Vital Signs / Lab Results
Temp Pulse Resp BP Pulse Ox
98.2 F 88 16 142/88 99
06/29/24 07:45 06/29/24 07:45 06/29/24 07:45 06/29/24 07:45 06/29/24 07:45
Lab Results - Hematology
06/26/24 06/27/24 06/28/24
19:08 05:49 09:27
WBC 7.9 5.9 3.8 L
06/29/24
04:42
WBC 6.0
Lab Results - Chemistry
06/26/24 06/27/24 06/28/24
19:08 05:49 09:27
BUN 17 16 14
Creatinine 1.5 H 1.1 0.8
Estimated Creat Clear 66 92
Albumin 4.1 3.0 L 3.4 L
06/29/24
04:41
BUN 14
Creatinine 0.8
Estimated Creat Clear 92
Albumin 3.4 L
06/26/24 06/26/24
19:25 22:12
Lactic Acid 0.9 0.9
Microbiology Results
06/27/24 15:56 Blood Culture - Preliminary
Blood/Venous No Growth in 24 hours- Final report to follow
06/27/24 15:56 Blood Culture - Preliminary
Blood/Venous No Growth in 24 hours- Final report to follow
06/26/24 22:12 Blood Culture - Preliminary
Blood/Venous Positive culture in progress
Gram Stain - Final
06/26/24 19:25 Blood Culture - Preliminary
Blood/Venous Enterococcus species
Gram Stain - Final
06/26/24 20:22 Urine Culture - Final
Urine NO GROWTH
--- NOTE | 2024-06-29 10:23 | PN.CDI ---
CDI
- -
CDI:
Physician Documentation Request
Admit Date: 06/26/24 22:24
Dear Doctor Xavier,
Please review the following and provide your response in the progress notes.
Clinical Indicators:
Pt admitted with septic shock.
06/26 H&P:'Persistent Atrial Fibrillation- Stable. Continue amiodarone at current dose for now.- Continue Eliquis for now'
06/27 Progress note:'Paroxysmal atrial fibrillation -on Eliquis. Had left atrial appendage occlusion in the past. History of ablation in 2013.'
If possible, please provide further specificity regarding atrial fibrillation, such as:
Persistent atrial fibrillation - episodes of continuous AF that last more than 7 days and do not self-terminate
Paroxysmal atrial fibrillation - terminates spontaneously or with intervention within 7 days of onset
Other - please specify
Use of terms such as suspected, likely, concern for, or probable (associated with a specific diagnosis that is being evaluated, monitored, or treated as if it exists) are acceptable and can be coded in the inpatient setting, when documented at the
time of discharge.
Thank you,
Jennifer Ling RN, BSN
CDI Specialist
Available via [facility] [employer]
Please use your independent medical judgment in providing your response.
--- NOTE | 2024-06-29 11:02 | W.PN.ID1 ---
Date of Service
Date of Service: June 29, 2024
Today's Communication
- switch to ampicillin and ceftriaxone - script sent to immigration case manager
- picc tomorrow if blood cultures ng at 72 hrs
Assessment / Plan
Possible endocarditis
Enterococcal bacteremia
Ruled out UTI
Persistent hematuria
TAVR placement - >8 weeks ago
- repeat blood cultures 06/27 NGTD - follow another day prior to considering line placement
- initial blood cultures 3 hours apart both with GPCs; one set prelim ID as enterococcus
- UA with hematuria; urine culture finalized no growth - UTI ruled out
- has predisposing valve lesion (TAVR), splinter hemorrhage, community acquired enterococcal bacteremia
- switch to ampicillin and ceftriaxone - script sent to immigration case manager
- TTE no lesions - tiger text sent to extrusion manager dairy husbandman to discuss merits of MICHELLE
- EKG without new blocks
- RF
AW
Chief Complaint
-: Bacteremia
Subjective / Review of Systems
remains afebrile
bp stable
had afib with RVR overnight, given amiodarone and metoprolol early; HR now controlled
Vital Signs / Physical Exam
Vital Signs
Vital Signs
Temp Pulse Resp BP Pulse Ox
98.2 F 88 16 142/88 99
06/29/24 07:45 06/29/24 07:45 06/29/24 07:45 06/29/24 07:45 06/29/24 07:45
Physical Exam
Constitutional: No Acute Distress
Cardiovascular: Regular Rate and S1/S2; Negative Murmur or Rub
Pulmonary: Clear and Symmetric; Negative Wheezes or Rales
Gastrointestinal: Soft, Non Tender, Non Distended and Normal Bowel Sounds
Extremities: Splinter Hemorrhage
Skin: Warm and Dry; Negative Rash or Jaundice
Objective Data
Lab Data
Lab Results
06/29/24 04:42
06/29/24 04:41
Estimated Creat Clear 92 ml/min 06/29/24 04:41
Lactic Acid 0.9 mmol/L (0.7-2.0) 06/26/24 22:12
Total Bilirubin 0.4 mg/dl (0.2-1.3) 06/29/24 04:41
AST 60 U/L (17-59) H 06/29/24 04:41
ALT 62 U/L (0-50) H 06/29/24 04:41
Alkaline Phosphatase 59 U/L (38-126) 06/29/24 04:41
Most recent labs reviewed.
Micro Results:
06/26/24 22:12 Blood Culture - Preliminary
Blood/Venous Positive culture in progress
Gram Stain - Final
06/26/24 19:25 Blood Culture - Preliminary
Blood/Venous Enterococcus species
Gram Stain - Final
06/27/24 15:56 Blood Culture - Preliminary
Blood/Venous No Growth in 24 hours- Final report to follow
06/27/24 15:56 Blood Culture - Preliminary
Blood/Venous No Growth in 24 hours- Final report to follow
06/26/24 20:22 Urine Culture - Final
Urine NO GROWTH
TTE: normally functioning TAVR
--- NOTE | 2024-06-29 11:50 | W.PN.HOSP.TC ---
Today's Communication/Plan
-
Monitor vital signs
see plan
Continue antibiotics
Continue with amiodarone, digoxin added
Assessment / Plan
Assessment / Plan
Gen-AAOx3, NAD
HEENT-NC, AT, anicteric, clear oral mm
Neck-supple
CV-reg, no M, +S1/S2
Lungs-clear B/L
Abd-soft, NT, ND
Ext-no edema
Musculoskeletal-no cyanosis, clubbing
Skin-warm and dry
Neuro-grossly non-focal
Psych-calm, cooperative
Septic shock -presentation with fever, tachycardia, hypotension. Required low-dose Levophed. Now off. shock resolved. Preliminary blood culture positive for Enterococcus. ID following. Continue antibiotics. new cx so far NGTD. Concern for
prosthetic valve endocarditis given AVR.
TTE without any vegetation
Probable urinary tract infection
Continue to monitor on antibiotics
NELSY -present on admission and likely due to hypotension, ATN. resolved
Hematuria -with acute cystitis on CT scan. Evaluated by his urologist recently and plan for cystoscopy in 2 weeks. urology following. F/U with Dr. Jane as scheduled in early 07/[address] scan without hydro utero nephrosis or ureteral calculus. Small number of nonobstructing bilateral intrarenal calculi.
CAD/CABG -underwent single-vessel CABG 04/28/2024, PADRON to LAD. History of proximal LAD stent in the past.
Paroxysmal atrial fibrillation/A flutter -on Eliquis. Had left atrial appendage occlusion in the past. History of ablation in 2013.
Currently going in and out of the atrial flutter, started on amiodarone. Added digoxin
Bioprosthetic AVR -for severe aortic stenosis.
Essential hypertension -Toprol-XL dose reduced due to hypotension on arrival.
Hyperlipidemia -on atorvastatin.
Gout
BPH
Nephrolithiasis
Normocytic anemia -since April. Monitor for now.
Obesity due to excess calories
Full code
Anticipated Discharge: 24 - 48 hours
Subjective/Interval History
-
Date of Service: June 29, 2024
denies pain
Objective Data
-
Labs:
Laboratory Results
06/29/24 06/29/24
04:41 04:42
WBC 6.0
Hgb 12.0 L
Hct 33.0 L
Plt Count 172
Sodium 141
Potassium 4.4
Chloride 104
Carbon Dioxide 23
BUN 14
Creatinine 0.8
Glucose 101 H
Calcium 9.3
Total Bilirubin 0.4
AST 60 H
ALT 62 H
Alkaline Phosphatase 59
Vital Signs:
Vital Signs
Temp Pulse Resp BP Pulse Ox
98.2 F 88 16 142/88 99
06/29/24 07:45 06/29/24 07:45 06/29/24 07:45 06/29/24 07:45 06/29/24 07:45
I&O
06/28/24 06/29/24 06/30/24
06:59 06:59 06:59
Intake Total 4210.9 / 4352.6 417.0 / 417.0 480 / 480
Output Total 3700 / 4000 1250 / 1250
Balance 510.9 / 352.6 -833.0 / -833.0 480 / 480
[2024-06-29] MEDS: LANOXIN 250 MCG PO (12:17)
[2024-06-29] MEDS: AMPICILLIN 108 MG IV ×3 (13:48→21:32)
--- NOTE | 2024-06-29 15:01 | CM ---
Pt seen at bedside.
CM discussed home IV abx need. Pt agreeable
Pt stated he has not had home infusions before and does not have any agency options to share
Pt agreeable to [facility] to supply medication
CM explained a home care agency nurse will have to provide education and administer the medication
Pt agreeable to [facility] for VN
CM spoke w/ Margaret/[facility] to do cost check. Margaret stated she will call CM back with prices and will reach out to [facility] to give them a heads up.
CM faxed script for meds and clinicals to [facility].
CM will await costs from Margaret to review w/ pt.
Plan: Home with IV abx
[2024-06-29 16:33] LABS: Rheumatoid Agglutinin Less Than 10 IU (<10 IU)
--- NOTE | 2024-06-29 16:50 | W.PN.CD ---
Today's Communication / Plan
-
- Rate control with AMiodarone and add Digoxin
- MICHELLE in AM - NPO after midnight.
Impression / Plan
-
69 yo male with PAF s/p PVI (2013), no longer on anticoagulation, CAD and severe, symptomatic aortic stenosis s/p AVR (#23 Inspira's Resilia), CABG x 1 (MERCEDES to LAD), and exclusion of left atrial appendage with 35mm atrial clip is admitted with
early septic shock
#Septic shock
-presentation with fever, tachycardia, hypotension.
- Shock resolved- on low Levophed.
- Preliminary blood culture positive for gram-positive cocci in chains x 2
- Given prosthetic AVR will rule out endocarditis risk is high. ECHO with serial blood cultures.
- ECHO 06/28/24: Normally functioning bioprosthetic aortic valve - Mean gradient 8mmHg - no aortic regurgitation is seen.
- With suspected endocarditis, will rule out vegetations with MICHELLE. NPO after midnight.
#PAF/atrial flutter
-S/P PVI 2013, currently in atrial flutter
-Rate is controlled.
-Rate control with metoprolol 25 BID, amiodarone 400 mg BID. Digoxin as needed.
-CHADS2-Vasc = 2 (Age, vascular disease).
-S/P #35 Atriclip LAAE (LOT [id number]) with Dr. Kemp (04/28/2024).
-Started on Eliquis 5 mg twice a day -05/01/2024
-Rate improved with amiodarone- drip. now PO again with 400 mg BID dose.
-RVR noted overight.
-Will add digoxin 250 mcg qd
#CAD
-Chronic, progressive.
-Prior PCI in the pLAD. Cardiac catheterization revealed some ISR and de duyen disease post stent.
-S/P 1V CABG (PADRON to LAD) with Dr. Kemp (04/28/2024).
-No sign of ischemia
#Severe aortic valve stenosis
-Chronic, progressive, symptomatic.
-S/P #23 Inspiris Rafaa SAVR (SN [id number]) with Dr. Kemp (04/28/2024).
-Post operative management as above.
DATA:
Intraoperative MICHELLE, 04/28/2024:
CONCLUSIONS
Severe aortic stenosis, mild to moderate aortic regurgitation. Valve annulus
23 mm.
Normal left ventricular size and systolic function, no regional wall motion
abnormalities seen, stage I diastolic dysfunction.
Moderate MAC, trace MR.
Mild left atrial enlargement. No thrombus seen in the left atrial appendage.
POST OPERATIVE FINDINGS
Status post aortic valve replacement with 23 mm bioprosthetic aortic valve, the
valve is well-seated, no perivalvular leak, leaflets are functioning well.
Mean gradient is 5 mmHg.
Status post CABG x 1, the left ventricle is vigorously rhonda with EF 60
to 65%. No regional wall motion abnormalities seen.
Status post left atrial appendage exclusion, no flow seen through the left
atrial appendage remnant.
Normal right ventricular size and function.
Trace MR. Trace TR.
Cardiac Catheterization, 03/16/2024:
CORONARY ANGIOGRAPHY
Dominance: Right.
Left Main: Normal.
LAD: There is a patent proximal LAD stent (2010) with mild in-stent stenosis approximately 20-30% in severity. The remainder of the LAD system has trivial luminal disease.
Circumflex: Trivial luminal irregularities.
RCA: Large dominant mildly ectatic vessel with mild luminal irregularities.
Physical Exam
Vital Signs/Labs
Vital Signs
Temp Pulse Resp BP Pulse Ox
98 F 119 18 123/74 100
06/29/24 15:23 06/29/24 15:23 06/29/24 15:23 06/29/24 15:23 06/29/24 15:23
06/28/24 06/29/24 06/30/24
06:59 06:59 06:59
Actual Weight 93.1 kg 91.427 kg
06/29/24 04:42
06/29/24 04:41
LAB Results
06/26/24
19:08
Troponin I < 0.012
Physical Exam
Constitutional: No acute distress and Comfortable
EENT: Anicteric and Moist mucous membranes
Cardiovascular: Pedal edema is absent, Rhythm/rate is irregular and Systolic murmur present
Respiratory: Respiratory effort normal, Crackles Absent and Rhonchi Absent
GI: Soft, Non tender and Normal bowel sounds
Neuro/Psych: Alert, Oriented and AO x 3
Data Reviewed
-
Date of Service: June 29, 2024
Medical Decision Making: Reviewed Test Results, Independent Historian Assessment, Test Interpretation and Review of Case with other Provider
EKG: Tracing Personally Visualized and interpreted
Echo: Report Reviewed by me
Medical Tests (PFT, Pathology etc): Discussed with Physician
Labs: Labs Reviewed by me
Old Records: Reviewed
[2024-06-29] MEDS: ZYLOPRIM 300 MG PO (17:18)
[2024-06-29] MEDS: LIPITOR 80 MG PO (17:18)
[2024-06-29] MEDS: PEPCID 20 MG PO (20:43)
[2024-06-30] VITALS (9 sets, daily range): BP systolic 133–158; BP diastolic 85–104; PULSE 93–127; BMI 31.2
[2024-06-30] MEDS: AMPICILLIN 108 MG IV ×6 (01:57→22:25)
--- NOTE | 2024-06-30 08:12 | W.PN.CD ---
Today's Communication / Plan
-
- MICHELLE today
- IV antibiotics as per ID
- Rate controlled. Ultimately plan for ablation once infection is cured.
Impression / Plan
-
69 yo male with PAF s/p PVI (2013), no longer on anticoagulation, CAD and severe, symptomatic aortic stenosis s/p AVR (#23 Inspira's Resilia), CABG x 1 (MERCEDES to LAD), and exclusion of left atrial appendage with 35mm atrial clip is admitted with
early septic shock
#Septic shock
-presentation with fever, tachycardia, hypotension.
- Shock resolved- on low Levophed.
- Preliminary blood culture positive for gram-positive cocci in chains x 2
- Given prosthetic AVR will rule out endocarditis risk is high. ECHO with serial blood cultures.
- ECHO 06/28/24: Normally functioning bioprosthetic aortic valve - Mean gradient 8mmHg - no aortic regurgitation is seen.
- With suspected endocarditis, will rule out vegetations with MICHELLE today.
#PAF/atrial flutter
-S/P PVI 2013, currently in atrial flutter
-Rate is controlled.
-Rate control with metoprolol 50 BID, amiodarone 400 mg BID and digoxin.
-CHADS2-Vasc = 2 (Age, vascular disease).
-S/P #35 Atriclip LAAE (LOT [id number]) with Dr. Kemp (04/28/2024).
-Started on Eliquis 5 mg twice a day -05/01/2024
-Rate improved with amiodarone- drip. now PO again with 400 mg BID dose.
-RVR resolved with digoxin 250 mcg qd
-Metoprolol 50 mg BID, Amiodarone 400 mg BID and Digoxin 250 mcg QD.
-Likely central line placement (PICC) for plan for 6 weeks antibiotics.
-Can reduce Amiodarone dose to 200 mg BID at discharge.
#CAD
-Chronic, progressive.
-Prior PCI in the pLAD. Cardiac catheterization revealed some ISR and de duyen disease post stent.
-S/P 1V CABG (PADRON to LAD) with Dr. Kemp (04/28/2024).
-No sign of ischemia
#Severe aortic valve stenosis
-Chronic, progressive, symptomatic.
-S/P #23 Inspiris Resilia SAVR (SN [id number]) with Dr. Kemp (04/28/2024).
-MICHELLE today
DATA:
Intraoperative MICHELLE, 04/28/2024:
CONCLUSIONS
Severe aortic stenosis, mild to moderate aortic regurgitation. Valve annulus
23 mm.
Normal left ventricular size and systolic function, no regional wall motion
abnormalities seen, stage I diastolic dysfunction.
Moderate MAC, trace MR.
Mild left atrial enlargement. No thrombus seen in the left atrial appendage.
POST OPERATIVE FINDINGS
Status post aortic valve replacement with 23 mm bioprosthetic aortic valve, the
valve is well-seated, no perivalvular leak, leaflets are functioning well.
Mean gradient is 5 mmHg.
Status post CABG x 1, the left ventricle is vigorously rhonda with EF 60
to 65%. No regional wall motion abnormalities seen.
Status post left atrial appendage exclusion, no flow seen through the left
atrial appendage remnant.
Normal right ventricular size and function.
Trace MR. Trace TR.
Cardiac Catheterization, 03/16/2024:
CORONARY ANGIOGRAPHY
Dominance: Right.
Left Main: Normal.
LAD: There is a patent proximal LAD stent (2010) with mild in-stent stenosis approximately 20-30% in severity. The remainder of the LAD system has trivial luminal disease.
Circumflex: Trivial luminal irregularities.
RCA: Large dominant mildly ectatic vessel with mild luminal irregularities.
Physical Exam
Vital Signs/Labs
Vital Signs
Temp Pulse Resp BP Pulse Ox
97.8 F 104 18 158/88 97
06/30/24 03:38 06/30/24 03:38 06/30/24 03:38 06/30/24 03:38 06/30/24 03:38
06/29/24 06/30/24 07/01/24
06:59 06:59 06:59
Actual Weight 91.427 kg 90.378 kg
Physical Exam
Constitutional: No acute distress and Comfortable
EENT: Anicteric and Moist mucous membranes
Cardiovascular: JVD pressure is normal, Systolic murmur absent and Rhythm/rate is irregular
Respiratory: Respiratory effort normal, Lungs clear to auscul., Wheeze Absent and Crackles Absent
GI: Soft, Non tender and Normal bowel sounds
Neuro/Psych: Alert, Oriented and AO x 3
Data Reviewed
-
Date of Service: June 30, 2024
Medical Decision Making: Reviewed Test Results, Independent Historian Assessment and Test Interpretation
EKG: Tracing Personally Visualized and interpreted
Echo: Report Reviewed by me
Labs: Labs Reviewed by me
Old Records: Reviewed
[2024-06-30] MEDS: TOPROL XL 50 MG PO ×2 (08:53→21:16)
[2024-06-30] MEDS: LOW STRENGTH ASPIRIN 81 MG PO ×2 (08:54→21:14)
[2024-06-30] MEDS: PACERONE 400 MG PO ×2 (08:54→21:14)
[2024-06-30] MEDS: ELIQUIS 5 MG PO ×2 (08:55→21:14)
[2024-06-30] MEDS: FLOMAX 0.4 MG PO (08:55)
--- NOTE | 2024-06-30 08:55 | CM ---
Addendum entered by Diana Burgess 06/30/24 15:56:
Pt seen at bedside. CM informed of cost for his abx and supplies.
Pt had additional questions re cost and insurance coverage. CM informed pt that Margaret/[facility] is planning to see him today
CM spoke w/ Margaret/[facility]. She confirmed she did speak with pt bedside w/ spouse re medications and supplies, reviewed insurance benefits, and provided additional information.
Per Margaret pt is agreeable to out of pocket cost
Margaret stated once PICC line is placed, fax PICC report and CXR report. She confirmed [facility] can begin tomorrow if pt is d/c tomorrow by 12 pm so supplies can be delivered and [facility] can begin around 2 pm
Original Note:
CM spoke w/ Margaret/[facility] w/ cost for abx.
Per Margaret the cost for both meds and supplies will cost pt $456/week
Spoke w/ Lauren/Scar who stated they can begin tomorrow since Picc line is due to be placed today
Margaret stated she will be at the hospital today and will talk w/ pt re cost and insurance benefits
Will review cost with pt to determine if this is feasible
Plan: Home w/ IV abx thru [facility] and [facility]
[2024-06-30 09:36] LABS: % Basophils 0.4 % (0-2); % Eosinophils 9.5 % (0-6); % Immature Granulocytes 0.2 % (0-0.5); % Lymphocytes 31.4 % (20.5-51.1); % Monocytes 10.1 % (1.7-9.3); % Neutrophils 48.4 % (42.2-75.2); Absolute Eosinophils 0.5 10^3/uL (0-0.7); Absolute Lymphocytes 1.7 10^3/uL (1.2-3.4); Absolute Monocytes 0.5 10^3/uL (0.1-0.6); Absolute Neutrophils 2.6 10^3/uL (1.4-6.5); Hematocrit 36.9 % (39.0-52.0); Mean Corp Hgb Conc. 35.2 g/dL (33.0-37.0); Mean Corpuscular Hgb 31.3 pg (27.0-31.0); Mean Corpuscular Volume 88.9 fL (80.0-94.0); Mean Platelet Volume 9.1 fL (7.4-10.4); Nucleated Red Blood Cells % 0 % (-); Platelet Count 218 10^3/uL (130-400); Red Blood Cell Count 4.15 10^6/uL (4.70-6.10); Red Cell Dist. Width 13.3 % (11.5-14.5); White Blood Cell Count 5.3 10^3/uL (4.8-10.8)
[2024-06-30] MEDS: STERILE WATER FOR INJECTION 20 ML IV ×2 (10:03→21:19)
[2024-06-30] MEDS: ROCEPHIN 2000 MG IV ×2 (10:03→21:19)
[2024-06-30] MEDS: LANOXIN 250 MCG PO (11:03)
[2024-06-30 11:19] LABS: ALT (SGPT) 69 U/L (0-50); AST (SGOT) 52 U/L (17-59); Alkaline Phosphatase 70 U/L (38-126); Blood Urea Nitrogen 16 mg/dl (9-20); Calcium 9.6 mg/dl (8.4-10.2); Carbon Dioxide 26 mmol/L (22-30); Chloride 102 mmol/L (98-107); Estimated Creatinine Clearance 81 ml/min; Glucose 97 mg/dl (70-99); Potassium 4.6 mmol/L (3.5-5.1); Sodium 141 mmol/L (135-145); Total Bilirubin 0.4 mg/dl (0.2-1.3); Total Protein 7.3 g/dl (6.3-8.2); eGFR > 60.00
--- NOTE | 2024-06-30 12:53 | W.PN.HOSP.TC ---
Today's Communication/Plan
-
Monitor vital signs
see plan
MICHELLE today
Continue with digoxin, amiodarone
cw abx per ID
Assessment / Plan
Assessment / Plan
Gen-AAOx3, NAD
HEENT-NC, AT, anicteric, clear oral mm
Neck-supple
CV-reg, no M, +S1/S2
Lungs-clear B/L
Abd-soft, NT, ND
Ext-no edema
Musculoskeletal-no cyanosis, clubbing
Skin-warm and dry
Neuro-grossly non-focal
Psych-calm, cooperative
Septic shock -presentation with fever, tachycardia, hypotension. Required low-dose Levophed. Now off. shock resolved. blood culture positive for Enterococcus. ID following. Continue antibiotics. new cx so far NGTD. Concern for prosthetic
valve endocarditis given AVR.
TTE without any vegetation
MICHELLE 06/30 pending
plan for home abx per ID; cw abx
Probable urinary tract infection
Continue to monitor on antibiotics
NELSY -present on admission and likely due to hypotension, ATN. resolved
Hematuria -with acute cystitis on CT scan. Evaluated by his urologist recently and plan for cystoscopy in 2 weeks. urology following. F/U with Dr. Jane as scheduled in early 07/[address] scan without hydro utero nephrosis or ureteral calculus. Small number of nonobstructing bilateral intrarenal calculi.
CAD/CABG -underwent single-vessel CABG 04/28/2024, PADRON to LAD. History of proximal LAD stent in the past.
Paroxysmal atrial fibrillation/A flutter -on Eliquis. Had left atrial appendage occlusion in the past. History of ablation in 2013.
Currently going in and out of the atrial flutter, started on amiodarone. Added digoxin
Bioprosthetic AVR -for severe aortic stenosis.
Essential hypertension -Toprol-XL dose reduced due to hypotension on arrival.
Hyperlipidemia -on atorvastatin.
Gout
BPH
Nephrolithiasis
Normocytic anemia -since April. Monitor for now.
Obesity due to excess calories
Full code
I spent a total of 51 minutes with the patient or on the floor. More than 50% of this time involved counseling and coordination of care.
Anticipated Discharge: 24 - 48 hours
Subjective/Interval History
-
Date of Service: June 30, 2024
denies pain
Objective Data
-
Labs:
Laboratory Results
06/30/24
08:47
WBC 5.3
Hgb 13.0
Hct 36.9 L
Plt Count 218 D
Sodium 141
Potassium 4.6
Chloride 102
Carbon Dioxide 26
BUN 16
Creatinine 0.9
Glucose 97
Calcium 9.6
Total Bilirubin 0.4
AST 52
ALT 69 H
Alkaline Phosphatase 70
Vital Signs:
Vital Signs
Temp Pulse Resp BP Pulse Ox
98 F 108 16 150/101 97
06/30/24 07:50 06/30/24 11:03 06/30/24 07:50 06/30/24 08:53 06/30/24 07:50
I&O
06/29/24 06/30/24 07/01/24
06:59 06:59 06:59
Intake Total 417.0 / 417.0 1559
Output Total 1250 / 1250
Balance -833.0 / -833.0 1559
--- NOTE | 2024-06-30 15:10 | W.PN.UPDATE ---
Update Note
Progress Note Update
Bacteremia
No evidence of UTI - UCx NG
Hematuria
Prior urologic history summarized:
- h/o BPH s/p UroLift procedure in 2022
- follows w/ Dr. Jane in [place]
- CTAP completed in [facility]/2024 @[facility] demonstrating no acute urologic pathology
- scheduled for cysto in early 07/2024
CT imaging/report reviewed => UroLift implants noted, small non-obstructing renal stones, no obstructive uropathy
- continue tamsulosin 0.4 mg qhs
- F/U with local urologist (Dr. Jane) early 07/2024 for cystoscopy
- Urology will sign off
D/w patient.
--- NOTE | 2024-06-30 16:13 | W.PN.UPDATE ---
Update Note
Progress Note Update
Out of the room for MICHELLE during my rounds.
MICHELLE without vegetations
Plans unchanged
Possible endocarditis
Enterococcal bacteremia
Ruled out UTI
Persistent hematuria
TAVR placement - >8 weeks ago
- repeat blood cultures 06/27 NGTD
- initial blood cultures 3 hours apart both with enterococcus
- UA with hematuria; urine culture finalized no growth - UTI ruled out
- has predisposing valve lesion (TAVR), splinter hemorrhage, community acquired enterococcal bacteremia
- c/w to ampicillin and ceftriaxone for 6 weeks - script sent to behavioral health case manager
- MICHELLE no lesions
- RF negative
- follow up with me in about 5 weeks
[2024-06-30] MEDS: LIPITOR 80 MG PO (17:16)
[2024-06-30] MEDS: ZYLOPRIM 300 MG PO (17:16)
--- NOTE | 2024-06-30 19:29 | VATNOTE ---
PCN notified PICC is properly positioned per radiology report and OK to use. Advised to remove any remaining IVs in the ipsilateral arm and change IV tubing prior to moving any infusions to PICC line.
[2024-06-30] MEDS: PEPCID 20 MG PO (21:18)
[2024-06-30] MEDS: TYLENOL 650 MG PO (22:36)
[2024-07-01] MEDS: AMPICILLIN 108 MG IV ×3 (02:21→10:02)
[2024-07-01 03:04] VITALS: BP 146/107
[2024-07-01 03:06] VITALS: BP 145/85
[2024-07-01 05:32] LABS: Hematocrit 34.7 % (39.0-52.0); Hemoglobin 11.9 g/dL (13.0-18.0); Mean Corp Hgb Conc. 34.3 g/dL (33.0-37.0); Mean Corpuscular Hgb 30.5 pg (27.0-31.0); Platelet Count 200 10^3/uL (130-400); Red Cell Dist. Width 13.3 % (11.5-14.5); White Blood Cell Count 5.9 10^3/uL (4.8-10.8)
[2024-07-01 05:37] LABS: ALT (SGPT) 60 U/L (0-50); AST (SGOT) 41 U/L (17-59); Albumin 3.4 g/dl (3.5-5.0); Alkaline Phosphatase 64 U/L (38-126); Blood Urea Nitrogen 16 mg/dl (9-20); Calcium 9.1 mg/dl (8.4-10.2); Carbon Dioxide 31 mmol/L (22-30); Chloride 101 mmol/L (98-107); Estimated Creatinine Clearance 73 ml/min; Glucose 96 mg/dl (70-99); Potassium 4.3 mmol/L (3.5-5.1); Sodium 142 mmol/L (135-145); Total Bilirubin 0.3 mg/dl (0.2-1.3); Total Protein 6.4 g/dl (6.3-8.2); eGFR > 60.00
[2024-07-01 05:49] VITALS: BMI 31.0
[2024-07-01] MEDS: FLOMAX 0.4 MG PO (08:23)
[2024-07-01] MEDS: TOPROL XL 50 MG PO (08:23)
[2024-07-01] MEDS: PACERONE 400 MG PO (08:24)
[2024-07-01] MEDS: LOW STRENGTH ASPIRIN 81 MG PO (08:24)
[2024-07-01] MEDS: ELIQUIS 5 MG PO (08:24)
[2024-07-01 08:37] LABS: % Basophils 0.2 % (0-2); % Eosinophils 9.2 % (0-6); % Immature Granulocytes 0.3 % (0-0.5); % Lymphocytes 32.8 % (20.5-51.1); % Monocytes 10.5 % (1.7-9.3); Absolute Eosinophils 0.5 10^3/uL (0-0.7); Absolute Lymphocytes 1.9 10^3/uL (1.2-3.4); Absolute Monocytes 0.6 10^3/uL (0.1-0.6); Absolute Neutrophils 2.8 10^3/uL (1.4-6.5); Nucleated Red Blood Cells % 0 % (-)
[2024-07-01] MEDS: ROCEPHIN 2000 MG IV (10:02)
[2024-07-01] MEDS: STERILE WATER FOR INJECTION 20 ML IV (10:02)
--- NOTE | 2024-07-01 10:38 | W.PN.HOSP.TC ---
Today's Communication/Plan
-
Monitor vital signs
see plan
Discharge today on oral antibiotics
Spoke with Dr. Manzano From cardiology, on discharge amiodarone will be 200 mg twice daily, continue with digoxin
Time of discharge 38 minutes
Assessment / Plan
Assessment / Plan
Gen-AAOx3, NAD
HEENT-NC, AT, anicteric, clear oral mm
Neck-supple
CV-reg, no M, +S1/S2
Lungs-clear B/L
Abd-soft, NT, ND
Ext-no edema
Musculoskeletal-no cyanosis, clubbing
Skin-warm and dry
Neuro-grossly non-focal
Psych-calm, cooperative
Septic shock -presentation with fever, tachycardia, hypotension. Required low-dose Levophed. Now off. shock resolved. blood culture positive for Enterococcus. ID following. Continue antibiotics. new cx so far NGTD. Concern for prosthetic
valve endocarditis given AVR.
TTE without any vegetation
MICHELLE 06/30 without any vegetation
plan for home abx per ID; cw abx. ID is already coronary antibiotics.
PICC line 06/30
Probable urinary tract infection
Continue to monitor on antibiotics
NELSY -present on admission and likely due to hypotension, ATN. resolved
Hematuria -with acute cystitis on CT scan. Evaluated by his urologist recently and plan for cystoscopy in 2 weeks. urology following. F/U with Dr. Jane as scheduled in early 07/[address] scan without hydro utero nephrosis or ureteral calculus. Small number of nonobstructing bilateral intrarenal calculi.
CAD/CABG -underwent single-vessel CABG 04/28/2024, PADRON to LAD. History of proximal LAD stent in the past.
Paroxysmal atrial fibrillation/A flutter -on Eliquis. Had left atrial appendage occlusion in the past. History of ablation in 2013.
Currently going in and out of the atrial flutter, started on amiodarone. Added digoxin. Spoke with Dr Manzano and on dc amio 200mg BID
Bioprosthetic AVR -for severe aortic stenosis.
Essential hypertension -Toprol-XL dose reduced due to hypotension on arrival.
Hyperlipidemia -on atorvastatin.
Gout
BPH
Nephrolithiasis
Normocytic anemia -since April. Monitor for now.
Obesity due to excess calories
Full code
Anticipated Discharge: Today
Subjective/Interval History
-
Date of Service: July 01, 2024
denies pain
Objective Data
-
Labs:
Laboratory Results
07/01/24
04:52
WBC 5.9
Hgb 11.9 L
Hct 34.7 L
Plt Count 200
Sodium 142
Potassium 4.3
Chloride 101
Carbon Dioxide 31 H
BUN 16
Creatinine 1.0
Glucose 96
Calcium 9.1
Total Bilirubin 0.3
AST 41
ALT 60 H
Alkaline Phosphatase 64
Vital Signs:
Vital Signs
Temp Pulse Resp BP Pulse Ox
97.3 F 118 18 143/108 96
07/01/24 07:35 07/01/24 08:23 07/01/24 07:35 07/01/24 08:23 07/01/24 08:00
I&O
06/30/24 07/01/24 07/02/24
06:59 06:59 06:59
Intake Total 1560 / 1560 480 / 480
Output Total 580 / 580
Balance 1560 / 1560 -100 / -100
--- NOTE | 2024-07-01 10:47 | W.DCSUMMARY ---
Discharge Summary
Discharge Data
Date of Admission: 06/26/24
Date of Discharge: 07/01/24
-
Pending Results: No
Hospital Course
69-year-old male with past medical history of nephrolithiasis, CAD/CABG, paroxysmal atrial fibrillation/atrial flutter, bioprosthetic AVR, aortic stenosis, essential hypertension, hyperlipidemia, gout, BPH, anemia, obesity came to the hospital with
septic shock secondary to Enterococcus bacteremia. Patient also was suspected to have urinary tract infection however urine culture was contaminant. Patient was seen by infectious disease for Enterococcus bacteremia. Given his recent prosthetic
valve, endocarditis was suspected. Patient was also seen by cardiology throughout hospitalization. He had both transthoracic and transesophageal echocardiogram which did not show any signs of vegetations. His recent blood culture were negative
prior to discharge. Infectious disease recommended patient to have at least 6 weeks of antibiotics on discharge. He also had mild hematuria which was likely thought was secondary to acute cystitis for which patient was instructed to follow-up with
urology outpatient. For his atrial fibrillation/atrial flutter he was loaded with amiodarone and then later was started on digoxin. Cardiology instructed patient to follow-up with them outpatient and plan will be for possible ablation once his
infection resolves. Once his symptoms continue to improve, he was then discharged home on IV antibiotics with instructions to follow-up with all his physicians outpatient.
Discharge Plan
-
Patient Disposition: Home with Home Care
Discharge Diagnosis/Procedures: Septic shock secondary to Enterococcus faecalis bacteremia
Presumed endocarditis
Probable urinary tract infection
Acute kidney injury
Hematuria
Diet: As tolerated
Activity: As tolerated
Driving Restrictions: As prior to admission
Bathing Restrictions: None
Referrals:
Daniel Nick DO [Family Provider] - in less than 1 week
Sebastian Lopez MD [Active] -
Emiliano Manzano MD [Active] -
Kathleen Jordan MD [Active] -
Prescriptions:
New
Ampicillin 2000 MG
0.9% Sodium Chloride 100 ml [Nss] 100 ML
108 mls/hr IV Q4H
Ordered By: Devon Park MD
Last Taken: 07/01/24 10:02 108 mls
acetaminophen 325 mg Tablet
650 mg PO Q4HPRN PRN (Reason: Mild Pain / Temp > 101) Qty: 0 0RF
digoxin 250 mcg (0.25 mg) Tablet
250 mcg PO NOON Qty: 30 0RF
ceftriaxone 2 gram Recon Soln
2,000 mg IV Q12H Qty: 0 0RF
metoprolol succinate 50 mg tablet extended release 24 hr
50 mg PO BID Qty: 60 0RF
Continued
atorvastatin 80 mg Tablet
80 mg PO QPM
aspirin 81 mg Tablet,Chewable
81 mg PO BID
allopurinol 300 mg Tablet
300 mg PO QPM
Eliquis 5 mg Tablet
5 mg PO BID Qty: 60 1RF
pantoprazole 40 mg Tablet,Delayed Release (Dr/Ec)
40 mg PO DAILY Qty: 30 1RF
famotidine 40 mg Tablet
40 mg PO HS
cyanocobalamin (vitamin B-12) 1,000 mcg Tablet
1,000 mcg PO DAILY
ascorbic acid (vitamin C) [Vitamin C] 500 mg Tablet
500 mg PO DAILY
tamsulosin 0.4 mg Capsule
0.4 mg PO DAILY
amiodarone 200 mg tablet
200 mg PO BID Qty: 60 1RF
Discontinued
metoprolol succinate [Toprol XL] 100 mg tablet extended release 24 hr
150 mg PO DAILY
Discharge Orders:
Discharge Patient (As Directed); Ordered 07/01/24
Ordered By: Devon Park
Discharge Date and Time
Discharge Date/Time: 07/01/24 12:42
Print Language: SYRIAN
--- NOTE | 2024-07-01 11:05 | CM ---
Addendum entered by Diana Burgess 07/01/24 12:53:
[facility]
Fax: [phone]
Addendum entered by Diana Burgess 07/01/24 11:15:
[facility]

Original Note:
Pt seen bedside w/ spouse.
CM confirmed w/ pt his communication w/ Margaret/[facility] and the plan for [facility] nurse to come to the home at 2 pm
Per hospitalist pt can d/c w/ cardio clearance today
will transport home
Margaret/[facility] updated
IMM reviewed, pt given copy. Copy placed in chart
Plan: Home w/ IV abx and VN ([facility] and [facility])
[2024-07-01 11:11] VITALS: BP 137/74
[2024-07-01] MEDS: LANOXIN 250 MCG PO (11:38)
[2024-07-01] MEDS: FLUAD (65 yr+) 2024-2025 FORMULA 0.5 ML IM (12:28)
== END 2024-07-01 12:42 | disposition home health service (06) | DRG 871 ==
LOC: 4 EAST ACU 22:24
PROVIDERS: Internal Medicine; Radiology Neuroradiology; ADMITTING PHYSICIAN Hospitalist; ATTENDING PHYSICIAN Internal Medicine; CONSULT PHYSICIAN Internal Medicine Cardiovascular Disease; CONSULT PHYSICIAN Student in an Organized Health Care Education/Training Program; CONSULT PHYSICIAN Surgery; EMERGENCY PHYSICIAN Emergency Medicine; FAMILY PHYSICIAN Student in an Organized Health Care Education/Training Program
PROC: 02HV33Z Insertion of Infusion Device into Superior Vena Cava, Percutaneous Approach (ICD-10-PCS; 2024-06-30)
PROC: B24BZZ4 Ultrasonography of Heart with Aorta, Transesophageal (ICD-10-PCS; 2024-06-30)
PROC: 3E02340 Introduction of Influenza Vaccine into Muscle, Percutaneous Approach (ICD-10-PCS; 2024-06-30)
DX: A41.81 Sepsis due to Enterococcus (principal); R65.21 Severe sepsis with septic shock; N17.9 Acute kidney failure, unspecified; N30.01 Acute cystitis with hematuria; I48.92 Unspecified atrial flutter; I38 Endocarditis, valve unspecified; E78.00 Pure hypercholesterolemia, unspecified; M10.9 Gout, unspecified; I95.9 Hypotension, unspecified; N40.0 Benign prostatic hyperplasia without lower urinary tract symptoms; K21.9 Gastro-esophageal reflux disease without esophagitis; I25.10 Atherosclerotic heart disease of native coronary artery without angina pectoris; I10 Essential (primary) hypertension; D64.9 Anemia, unspecified; I35.0 Nonrheumatic aortic (valve) stenosis; N20.0 Calculus of kidney; I48.0 Paroxysmal atrial fibrillation; E66.09 Other obesity due to excess calories; Z95.1 Presence of aortocoronary bypass graft; Z23 Encounter for immunization; Z95.3 Presence of xenogenic heart valve; Z95.5 Presence of coronary angioplasty implant and graft; Z79.899 Other long term (current) drug therapy; Z68.31 Body mass index [BMI] 31.0-31.9, adult; Z79.82 Long term (current) use of aspirin; Z79.01 Long term (current) use of anticoagulants; Z20.822 Contact with and (suspected) exposure to COVID-19
CPT/HCPCS: 71045; 74176; 80053; 81003; 81015; 82248; 82550; 83605; 84443; 84484; 85025; 85027; 86430; 86803; 87040; 87077; 87086; 87186; 87205; 87811; 90662; 93005; 93306; 93312; 93320; 93325; 96361; 96365; 99285; G0008

== ENCOUNTER 2024-08-06 04:08 | Inpatient (IN) | payer MEDICARE, SELFPAY ==
[2024-08-05 23:21] VITALS: BP 221/119
[2024-08-05 23:45] VITALS: BP 201/91
[2024-08-06] VITALS (13 sets, daily range): BP systolic 105–174; BP diastolic 16–97; BMI 32.4
[2024-08-06 00:10] LABS: % Basophils 0.5 % (0-2); % Eosinophils 7.2 % (0-6); % Immature Granulocytes 0.2 % (0-0.5); % Lymphocytes 35.8 % (20.5-51.1); % Monocytes 10.8 % (1.7-9.3); % Neutrophils 45.5 % (42.2-75.2); Absolute Eosinophils 0.4 10^3/uL (0-0.7); Absolute Lymphocytes 2.1 10^3/uL (1.2-3.4); Absolute Monocytes 0.6 10^3/uL (0.1-0.6); Absolute Neutrophils 2.6 10^3/uL (1.4-6.5); Hemoglobin 12.5 g/dL (13.0-18.0); Mean Corp Hgb Conc. 34.7 g/dL (33.0-37.0); Mean Corpuscular Hgb 30.3 pg (27.0-31.0); Mean Corpuscular Volume 87.4 fL (80.0-94.0); Mean Platelet Volume 9.2 fL (7.4-10.4); Nucleated Red Blood Cells % 0 % (-); Platelet Count 189 10^3/uL (130-400); Red Blood Cell Count 4.12 10^6/uL (4.70-6.10); Red Cell Dist. Width 14.7 % (11.5-14.5); White Blood Cell Count 5.8 10^3/uL (4.8-10.8)
[2024-08-06] MEDS: ZOFRAN 4 MG IV (00:18)
[2024-08-06] MEDS: DILAUDID 1 MG IV (00:18)
--- NOTE | 2024-08-06 00:21 | ED.GENMED ---
History of Present Illness
General
Chief Complaint: Abdominal Pain
Source: patient
Exam Limitations: none
Time Seen by Provider: 08/05/24 23:44
History of Present Illness
History of Present Illness:
This is a 69 year old male that comes in with c/o abd pain. States that he has pain in the middle of his upper abd. States that this started about 2 hours ago and it was in the back on both sided at the level of the ribs and then moved around to the
abd. States that he has a headache and severe abd pain. Patient has a PICC line or antibiotics as recently had sepsis for blood infection. Denies any fever, chills, chest pain, SOB, nausea, vomiting, diarrhea, dizziness, urinary burning.
Past History
Past History
ED Past Medical History: Arrthythmia (Atrial fib flutter), CAD, GERD, Hypercholesterolemia and Other (TBI, Aortic stenosis, RBBB, Renal calculus, PICC sepsis)
ED Past Surgical History: Cardiac (Loop recorder, stents, Aortic valve replacement, ) and Other (Trach but removed. Maxifacial reconstruction)
Social History
Tobacco: Non-smoker
Alcohol: Occasional
Personal:
Living: with family
Review of Systems
Review of Systems
All Other Systems: ROS reviewed and negative except as documented in HPI and ROS
Constitutional: Reports no symptoms; Denies fever or chills
EENT: Reports no symptoms
Respiratory: Reports no symptoms; Denies cough or trouble breathing
Cardiac: Reports no symptoms; Denies chest pain
ABD/GI: Reports abdominal pain; Denies nausea, vomiting or diarrhea
: Reports no symptoms; Denies dysuria, frequency or urgency
Musculoskeletal: Reports no symptoms
Skin: Reports no symptoms
Neurological: Reports headache; Denies dizzy
Psychiatric: Reports no symptoms
Phy Exam
General Physical Exam
General Presentation: mild distress
General age: appears stated age
General Skin: warm and dry
General Habitus: elderly
General Mental: alert
General Hydration: appears well hydrated
ENT Exam
ENT Exam: TM's normal, pharynx normal and neck supple
Eye Exam
Eye Exam: EOMI
Cardiovascular Exam
Cardiovascular Exam: regular rate/rhythm, no edema and normal peripheral pulses
Pulmonary Exam
Pulmonary Exam: lungs clear, no respiratory distress, no rales, chest non tender, no crackles, no rhonchi, no wheezing and no cough
Gastrointestinal Exam
Gastrointestinal Exam: normal bowel sounds, soft, no organomegaly, no pulsatile mass, non distended and tender (Upper abd tenderness with palpation right RUQ)
Musculoskeletal Exam
Musculoskeletal Exam: full ROM and no edema
Skin Exam
Skin Exam: normal color, warm/dry, no rash, no petechia and other (PICC line noted right upper arm. site clean and dry. )
Psychiatric Exam
Psychiatric Exam: normal mood/affect
Course
Orders/Labs/Results
Orders:
Orders
08/05/24 23:25
Electrocardiogram (*1) Urgent
Reason for Study: Abdominal Pain
EKG- Treatment ONCE
08/05/24 23:50
Complete Blood Count/With Diff Urgent
Comprehensive Metabolic Panel Urgent
Lipase Urgent
Comment: ADD ON
Troponin I Urgent
08/06/24 00:15
HYDROmorphone [Dilaudid] 1 mg IV NOW STA
Ondansetron Injectable [Zofran] 4 mg IV NOW STA
US Abdomen Complete/Upper Urgent
Comment:
Reason For Exam: Upper abd pain
08/06/24 00:20
Pantoprazole [Protonix IV] 40 mg IV NOW STA
08/06/24 00:21
Add On- LAB Urgent
Tests Added?: Lipase
08/06/24 00:43
Sterile Water [Sterile Water For Injection] 10 ml .ROUTE .[facility]
Abnormal Lab Results
08/05/24
23:50
RBC 4.12 L 10^6/uL
(4.70-6.10)
Hgb 12.5 L g/dL
(13.0-18.0)
Hct 36.0 L %
(39.0-52.0)
RDW 14.7 H %
(11.5-14.5)
Monocytes % 10.8 H %
(1.7-9.3)
Eosinophils % 7.2 H %
(0-6)
Carbon Dioxide 21 L mmol/L
(22-30)
Glucose 142 H mg/dl
(70-99)
08/05/24 23:50
08/05/24 23:50
H/H slighty low. Hyperglycemia. carbon dioxide slightly low. Troponin <0.012 Lipase normal at 125
Vital Signs
Initial and Last Documented VS:
Initial Vital Signs
Temp Pulse Resp BP Pulse Ox
98.2 F 58 24 221/119 98
08/05/24 23:21 08/05/24 23:21 08/05/24 23:21 08/05/24 23:21 08/05/24 23:21
Last Documented Vital Signs
Temp Pulse Resp BP Pulse Ox
98.2 F 56 13 110/68 92
08/05/24 23:21 08/06/24 01:00 08/06/24 01:00 08/06/24 01:00 08/06/24 01:00
MDM/Problems Addressed
Differential Diagnosis Includes:
Gallbladder disease. Gastritis, Aortic dissection
MDM/Problems Addressed:
This is a 69 year old male that comes in with c/o upper abd pain. States that this started in his back and came around to the upper abd.
Will get labs, US, medicate for pain.
back into see patient and . Explained that he has Nonmobile gallstones in the neck of the gallbladder. Will admit patient to further evaluation. Hospitalist notified.
Chronic conditions affecting care:
GERD
Chronic conditions affecting care: CAD
Acute Exacerbation and/or Progression of Chronic Illness:
GERD
Acute Exacerbation and/or Progression of Chronic Illness: CAD
*Radiology
Radiology exam reviewed: radiology read reviewed (US night hawk- The gallbladder constains sludge as well as nonmobile stones in the neck. Mild wall thickening (4mm). No pericholecystic fluid or a sonographic Independence sign. Overall findings somewhat
equivocal for acute cholecystitis. The common bile duct measures 5mm. No hydronephrosis in either ) and other (US cont- Kidney, bilateral renal cyst. Unremarkable liver, spleen and visualized pancreas. )
*Pulse Oximetry
Patient hypoxic: no
*EKG
Interpreted by ED Provider?: Yes
Heart Rate: 72
Rate: normal
Rhythm: sinus
Clarence: left axis deviation
Interval: normal interval
QRS Pattern: right bundle branch block
Ischemia: no ischemia
*Director Packaging Interpretation
Rate: normal
Heart Rate: 68
Rhythm: sinus
*Critical Care Note
Total Time (30-74mins, 75-104mins- exclusive of procedures): Not Applicable
ED Attending Note
-
Portions of this chart may have been created with voice recognition software.� Occasional wrong word or��sound alike� substitutions may have occurred due to the inherent limitations of voice recognition software.
Discharge Plan
Departure
Patient Disposition: Admit
Date of Disposition: 08/06/24
Time of Disposition: 02:48
Admit to: Med/Surg
Presentation/result/management discussed w/ accepting MD/DO: Hospitalist
Patient with high blood pressure during this ER visit?: No
Condition: Good
Covid-19: Not Applicable
Discharge Problem:
Acute cholecystitis
Prescriptions:
No Action
atorvastatin 80 mg Tablet
80 mg PO QPM
aspirin 81 mg Tablet,Chewable
81 mg PO BID
allopurinol 300 mg Tablet
300 mg PO QPM
Eliquis 5 mg Tablet
5 mg PO BID Qty: 60 1RF
pantoprazole 40 mg Tablet,Delayed Release (Dr/Ec)
40 mg PO DAILY Qty: 30 1RF
famotidine 40 mg Tablet
40 mg PO HS
cyanocobalamin (vitamin B-12) 1,000 mcg Tablet
1,000 mcg PO DAILY
ascorbic acid (vitamin C) [Vitamin C] 500 mg Tablet
500 mg PO DAILY
tamsulosin 0.4 mg Capsule
0.4 mg PO DAILY
Ampicillin 2000 MG
0.9% Sodium Chloride 100 ml [Nss] 100 ML
108 mls/hr IV Q4H
Ordered By: Devon Park MD
Last Taken: Unknown
acetaminophen 325 mg Tablet
650 mg PO Q4HPRN PRN (Reason: Mild Pain / Temp > 101) Qty: 0 0RF
digoxin 250 mcg (0.25 mg) Tablet
250 mcg PO NOON Qty: 30 0RF
ceftriaxone 2 gram Recon Soln
2,000 mg IV Q12H Qty: 0 0RF
metoprolol succinate 50 mg tablet extended release 24 hr
50 mg PO BID Qty: 60 0RF
amiodarone 200 mg tablet
200 mg PO BID Qty: 60 1RF
Referrals:
Daniel Nick DO [Family Provider] -
Interventions
Interventions:
*Risk Screen - Suicide Last Done: 08/05/24 23:21
*Neglect/Abuse Screening Last Done: 08/05/24 23:21
*ED COVID-19 Vaccine History Last Done: 08/05/24 23:21
AS-Itgiis-Yaxsnufukh Assessment Last Done: 08/06/24 00:05
Discharge Date and Time
Print Language: [place]
[2024-08-06 00:24] LABS: ALT (SGPT) 49 U/L (0-50); AST (SGOT) 47 U/L (17-59); Albumin 4.2 g/dl (3.5-5.0); Alkaline Phosphatase 58 U/L (38-126); Blood Urea Nitrogen 18 mg/dl (9-20); Calcium 9.1 mg/dl (8.4-10.2); Carbon Dioxide 21 mmol/L (22-30); Chloride 107 mmol/L (98-107); Glucose 142 mg/dl (70-99); Potassium 4.5 mmol/L (3.5-5.1); Sodium 142 mmol/L (135-145); Total Bilirubin 0.3 mg/dl (0.2-1.3); Total Protein 7.5 g/dl (6.3-8.2); eGFR > 60.00
[2024-08-06 00:33] LABS: Troponin I 0.012 ng/ml
[2024-08-06] MEDS: PROTONIX IV 40 MG IV (01:06)
[2024-08-06 01:40] LABS: Lipase 125 U/L (23-300)
--- NOTE | 2024-08-06 04:00 | HPS.HSE ---
Family Physician
-
Family Physician: Daniel Nick DO
Chief Complaint
-
Abd Pain
History of Present Illness
Patient is a 69y M with PMH significant for ASCVD, aortic stenosis s/p TAVR and recent admission for Enterococcus bacteremia who presents to ED complaining of abdominal pain. Patient states that he felt well for much of the day today. This
evening after dinner, he noted development of pain 'under the ribs' bilaterally. The pain radiated into his back and across his abdomen before eventually settling in the epigastric region. Patient denies any nausea or vomiting. No fevers /
chills. He states that he has noted increased symptoms of heartburn since beginning IV abx for bacteremia (06/26/24). He otherwise denies any prior history of similar symptoms.
Medical History
Past Medical History
Past Medical History: Reports Other
Additional Past Medical History:
ASCVD
Persistent A-Fib / Flutter
Aortic Stenosis
Enterococcus Bacteremia (06/2024)
Hypertension
Gout
BPH
Nephrolithiasis
Past Surgical History: Reports Other
Additional Past Surgical History:
CABG x 1 / BioAVR / AtriClip (04/28/24)
PTCA with Stent
PVI Ablation
Loop Recorder Implanted (x 2)
Facial Reconstruction
Social History
Tobacco: Non-smoker
Alcohol: Occasional
Drug: None
Personal:
Living: With Family
Family History
Family History: Other (Father: CAD Mother: Lung Cancer)
Allergies / Home Medications
Allergies reflects when Allergies were last updated in [facility].
Home Medications with original date entered in [facility]
Allergy/Medication List:
Allergies
Allergy/AdvReac Type Severity Reaction Status Date / Time
No Known Allergies Allergy Verified 08/05/24 23:21
Home Medications
allopurinol 300 mg tablet 300 mg PO QPM Gout 03/16/24
aspirin 81 mg chewable tablet 81 mg PO BID Blood Clot Prevention/Tx 03/16/24
atorvastatin 80 mg tablet 80 mg PO QPM High Cholesterol 03/16/24
apixaban 5 mg tablet (Eliquis) 5 mg PO BID Blood clot prevention/tx #60 tabs 05/03/24
pantoprazole 40 mg tablet,delayed release 40 mg PO DAILY GI prophylaxis while on Eliquis #30 tabs 05/03/24
ascorbic acid (vitamin C) 500 mg tablet (Vitamin C) 500 mg PO DAILY Supplement 06/26/24
cyanocobalamin (vitamin B-12) 1,000 mcg tablet 1,000 mcg PO DAILY Supplement 06/26/24
famotidine 40 mg tablet 40 mg PO HS Gastrointestinal Issue 06/26/24
tamsulosin 0.4 mg capsule 0.4 mg PO DAILY Urinary Issue 06/26/24
Ampicillin 2,000 mg 108 mls/hr IV Q4H 07/01/24
acetaminophen 325 mg tablet 650 mg (2 x 325 mg) PO Q4HPRN PRN Mild Pain / Temp > 101 #0 tabs 07/01/24
amiodarone 200 mg tablet 200 mg PO BID Arrhythmia #60 tabs 07/01/24
ceftriaxone 2 gram solution for injection 2,000 mg IV Q12H #0 ea 07/01/24
digoxin 250 mcg (0.25 mg) tablet 250 mcg PO NOON #30 tabs 07/01/24
metoprolol succinate 50 mg tablet,extended release 24 hr 50 mg PO BID #60 tabs 07/01/24
Review of Systems
-
History Source: Patient
A 12 point ROS was completed and negative except as noted: Yes
Constitutional: Denies Fever, Fatigue or Chills
Respiratory: Denies Cough or Trouble Breathing
Cardiac: Denies Chest Pain, Diaphoresis, Palpitations or Syncope
Abdomen/GI: Reports Abdominal Pain; Denies Nausea, Vomiting, Diarrhea, Constipated, Bloody Stools, Black Stools or Anorexia
: Denies Dysuria, Frequency or Flank Pain
Musculoskeletal: Denies Joint Pain
Neurological: Denies Dizzy or Headache
Psych: Denies Depression or Anxiety
Physical Exam
Vital Signs
Vital Signs
Temp Pulse Resp BP Pulse Ox
98.2 F 56 13 110/68 92
08/05/24 23:21 08/06/24 01:00 08/06/24 01:00 08/06/24 01:00 08/06/24 01:00
Physical Exam
General: Other (69y M in no acute distress.)
HEENT: Moist mucous membranes and PERRLA
Respiratory: Clear; No Wheezes, Rales or Rhonchi
Cardiac: S1/S2, Irregular Rhythm and Murmur (II/ SANDY)
GI: Soft, Non Distended, Normal Bowel Sounds and Other (Mild tenderness without rebound / guarding in epigastric area.)
Musculoskeletal: No Clubbing, No Cyanosis and No Edema
Neuro: AO x 3
Hematologic/Lymphatic: Other (RUE PICC in place. Site without bleeding, erythema, induration.)
Laboratory Results
-
08/05/24 23:50
08/05/24 23:50
Laboratory Results
Total Bilirubin 0.3 mg/dl (0.2-1.3) 08/05/24 23:50
AST 47 U/L (17-59) 08/05/24 23:50
ALT 49 U/L (0-50) 08/05/24 23:50
Alkaline Phosphatase 58 U/L (38-126) 08/05/24 23:50
Troponin I 0.012 ng/ml 08/05/24 23:50
Lipase 125 U/L (23-300) 08/05/24 23:50
Impression/Plan
-
A/P: Patient is a 69y M with PMH significant for ASCVD, A-Fib and s/p AVR who presents to ED complaining of abdominal pain.
Abdominal Pain
Symptomatic Cholelithiasis
GERD / Esophagitis
- Admit for further evaluation and treatment.
- US shows non-mobile stone in the GB neck without significant wall thickening, pericholecystic fluid, fever, abnormal LFTs, etc.
- Patient also notes recent increase in chronic reflux / heartburn symptoms (since beginning abx).
- Previous CT imaging has demonstrated GB sludge as well as distal esophageal thickening.
- GI and Surgery evaluations for additional recommendations.
- NPO, supportive care, etc.
- Follow for any new / worsening symptoms.
Enterococcus Bacteremia
- Recent admission 06/26 - 07/01 for fever and found to have Enterococcus bacteremia of unclear origin.
- On ampicillin and ceftriaxone at present.
- Continue these through 08/07 doses as previously scheduled.
- Monitor for any recurrent fevers or other new symptoms.
- Patient notes that he is supposed to begin lifelong oral abx for suppression after current course completes.
ASCVD
Persistent Atrial Fibrillation
- Stable. Continue amiodarone, metoprolol and Digoxin.
- Check dig levels.
- EKG / tele in ED shows slow A-Flutter.
- Monitor on telemetry.
- Hold Eliquis acutely in the event that any intervention is required.
- Patient is s/p surgery 04/28/24 including AtriClip and CABG x 1 at that time.
Aortic Stenosis s/p BioAVR
- Stable. On abx for bacteremia and presumed endocarditis.
- TTE / MICHELLE unremarkable during recent admission.
Elevated BP
- Markedly elevated BP on initial presentation to the ED was apparently related to acute pain / discomfort.
- Significant improvement following pain control medications.
- Follow for any recurrent BP elevations ans adjust med regimen if needed.
BPH
- Stable. Continue Flomax.
- Bladder scan protocol and straight cath / [place] if needed.
Gout
- Stable.
- Continue allopurinol for prevention.
DVT Prophylaxis: SCDs
Code Status: Full
[2024-08-06] MEDS: TUMS CHEWABLE TABLET 200 MG PO (05:56)
[2024-08-06 06:19] LABS: Digoxin 1.3 ng/ml (0.8-2.0)
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
--- NOTE | 2024-08-06 09:28 | W.PN.HOSP.TC ---
Today's Communication/Plan
-
Reduce dose of amiodarone
Continue antibiotics
Clear liquid diet
Hold Eliquis
N.p.o. after midnight
Assessment / Plan
Assessment / Plan
Gen-AAOx3, NAD, obese
HEENT-NC, AT, anicteric, clear oral mm
Neck-supple
CV-reg, no M, +S1/S2
Lungs-clear B/L
Abd-soft, NT, ND
Ext-no edema
Musculoskeletal-no cyanosis, clubbing
Skin-warm and dry
Neuro-grossly non-focal
Psych-calm, cooperative
Acute cholecystitis -discussed with general surgery. N.p.o. after midnight for cholecystectomy tomorrow. Clear liquids today. Abdominal ultrasound reviewed. Echogenic material in the gallbladder, likely sludge. Cannot rule out smaller stones.
Mild gallbladder wall thickening but no pericholecystic fluid.
Chronic hematuria -apparently had negative cystoscopy according to patient. Follows with Dr. Lopez. Check urinalysis. Does have small nonobstructing bilateral intrarenal calculi noted on previous CT.
Recent Enterococcus faecalis prosthetic valve endocarditis -currently on IV ampicillin, ceftriaxone until August 07 then will need long-term suppressive antibiotic therapy with doxycycline 100 mg twice daily. Discussed with Dr. Jordan. DC PICC
line prior to discharge.
CAD/CABG -04/28/2024, single-vessel bypass MERCEDES to LAD. Unclear why he is on aspirin twice daily, will check with cardiology.
Bioprosthetic AVR -04/28/2024.
Persistent atrial fibrillation -hold Eliquis for anticipated surgery tomorrow. Discussed with cardiology (Dr. Solis), can reduce dose of amiodarone to once daily. He is scheduled to see Dr. Manzano next week.
Essential hypertension -hypertensive urgency on arrival, now improved. Continue metoprolol XL 50 mg twice daily.
Hyperlipidemia -atorvastatin.
BPH -tamsulosin.
Gout
Obesity due to excess calories
Full code
Anticipated Discharge: > 48 hours
Subjective/Interval History
-
Date of Service: August 06, 2024
Patient seen and examined. No complaints. Denies abdominal pain or nausea.
Objective Data
-
Labs:
Laboratory Results
08/05/24
23:50
WBC 5.8
Hgb 12.5 L
Hct 36.0 L
Plt Count 189
Sodium 142
Potassium 4.5
Chloride 107
Carbon Dioxide 21 L
BUN 18
Creatinine 1.0
Glucose 142 H
Calcium 9.1
Total Bilirubin 0.3
AST 47
ALT 49
Alkaline Phosphatase 58
Vital Signs:
Vital Signs
Temp Pulse Resp BP Pulse Ox
97.6 F 57 18 164/92 98
08/06/24 07:00 08/06/24 07:00 08/06/24 07:00 08/06/24 07:00 08/06/24 07:00
Review of Systems
-
History Source: Patient
All other systems: Reviewed and negative
[2024-08-06] MEDS: FLOMAX 0.4 MG PO (09:35)
[2024-08-06] MEDS: LOW STRENGTH ASPIRIN 81 MG PO (09:35)
[2024-08-06] MEDS: PROTONIX 40 MG PO (09:35)
[2024-08-06] MEDS: TOPROL XL 50 MG PO ×2 (09:35→19:41)
[2024-08-06] MEDS: PACERONE 200 MG PO (09:36)
[2024-08-06] MEDS: STERILE WATER FOR INJECTION 20 ML IV ×2 (09:37→19:41)
[2024-08-06] MEDS: ROCEPHIN 2000 MG IV ×2 (09:37→19:41)
[2024-08-06] MEDS: FLUSH (NSS) 2 FLUSH IV ×2 (09:37→17:19)
--- NOTE | 2024-08-06 10:00 | CM ---
Chart reviewed. Pt had recent hospital admission (06/26-07/01). Initial assessment completed
Pt lives w/ spouse in a single story home-1 step to enter home
Pt is independent, no DME use for ambulating or daily functioning
[facility] VN in the past for IV abx administration per last admission
No SNF hx
Address, point of contact and insurance verified.
PCP: Dr. Daniel Gardner
Pharmacy: [facility]
Per hospitalist note, N.p.o. after midnight for cholecystectomy tomorrow.
Plan: CM will cont to follow for d/c planning
[2024-08-06 10:38] LABS: Urine Albumin Trace (Neg - Trace); Urine Bilirubin Negative (Negative); Urine Character Slightly Cloudy (Clear); Urine Color Yellow; Urine Glucose Negative (Negative); Urine Ketone Negative (Negative); Urine Leukocyte Negative (Negative); Urine Nitrite Negative (Negative); Urine Occult Blood 4+ (Negative); Urine Urobilinogen Negative (Neg - 1+)
[2024-08-06 11:48] LABS: Urine Epithelial Cast 0-2 /LPF; Urine Granular Cast 0-2 /LPF (0); Urine Red Blood Cell >100 /HPF (0-2)
[2024-08-06 11:49] LABS: Urine White Cell 0-2 /HPF (0-5)
[2024-08-06] MEDS: LANOXIN 250 MCG PO (13:12)
--- NOTE | 2024-08-06 16:41 | PTCARENOTE ---
Pt's BP at 1500, 169/94, pt states slight headache, slight discomfort of abdomen. Pt denies need for pain medication at this time. Rechecked BP, 159/86, HR 58 on reassessment. Encouraged pt to make RN aware if he decides that he needs pain meds,
will monitor.
[2024-08-06] MEDS: LIPITOR 80 MG PO (17:18)
[2024-08-06] MEDS: ZYLOPRIM 300 MG PO (17:18)
[2024-08-06] MEDS: AMPICILLIN 108 MG IV ×2 (17:18→20:55)
[2024-08-06] MEDS: TYLENOL 650 MG PO (19:19)
[2024-08-06] MEDS: PEPCID 40 MG PO (20:55)
[2024-08-07] VITALS (11 sets, daily range): BP systolic 150–173; BP diastolic 74–96
[2024-08-07] MEDS: AMPICILLIN 108 MG IV ×4 (01:07→14:15)
[2024-08-07] MEDS: COMPAZINE 5 MG IV (06:01)
[2024-08-07 06:46] LABS: Hematocrit 38.1 % (39.0-52.0); Hemoglobin 12.9 g/dL (13.0-18.0); Mean Corp Hgb Conc. 33.9 g/dL (33.0-37.0); Mean Corpuscular Hgb 30.5 pg (27.0-31.0); Mean Corpuscular Volume 90.1 fL (80.0-94.0); Mean Platelet Volume 9.4 fL (7.4-10.4); Platelet Count 178 10^3/uL (130-400); Red Blood Cell Count 4.23 10^6/uL (4.70-6.10); Red Cell Dist. Width 14.3 % (11.5-14.5); White Blood Cell Count 5.4 10^3/uL (4.8-10.8)
[2024-08-07 07:08] LABS: ALT (SGPT) 60 U/L (0-50); AST (SGOT) 54 U/L (17-59); Albumin 3.8 g/dl (3.5-5.0); Alkaline Phosphatase 65 U/L (38-126); Blood Urea Nitrogen 12 mg/dl (9-20); Calcium 9.2 mg/dl (8.4-10.2); Carbon Dioxide 31 mmol/L (22-30); Chloride 102 mmol/L (98-107); Direct Bilirubin 0.1 mg/dl (0.0-0.4); Estimated Creatinine Clearance 67 ml/min; Glucose 99 mg/dl (70-99); Potassium 4.2 mmol/L (3.5-5.1); Sodium 142 mmol/L (135-145); Total Bilirubin 0.5 mg/dl (0.2-1.3); Total Protein 6.8 g/dl (6.3-8.2); eGFR > 60.00
[2024-08-07] MEDS: ROCEPHIN 2000 MG IV (07:44)
[2024-08-07] MEDS: STERILE WATER FOR INJECTION 20 ML IV (07:44)
--- NOTE | 2024-08-07 08:42 | W.SUR.PREOP ---
Pre-Operative Surgical Note
-
I have examined this patient prior to the performance of the scheduled procedure.
The patient's condition is unchanged from the time of the current History and
Physical and the patient is able to undergo the scheduled procedure.
--- NOTE | 2024-08-07 10:38 | W.IMMPOSTOP ---
Addendum entered and electronically signed by Chicho Franks MD 08/07/24 10:52:
#[id number]
Original Note:
Surgical Immed Post Op Note
-
Primary Surgeon: Golden
Assisting Surgeon: None
Pre-op Diagnosis: Acute biliary colic/symptomatic cholelithiasis
Post-op Diagnosis: Acute biliary colic/symptomatic cholelithiasis
Procedure Performed: Laparoscopic cholecystectomy with intraoperative cholangiogram
Anesthesia Type: GETA +0.25% Marcaine
Specimen / Cultures: Gallbladder
Estimated Blood Loss: 8 mL
Complications: None immediate
Operative Findings: Tensely distended gallbladder with some acute/chronic inflammation. Intraoperative cholangiogram normal. Cystic duct controlled with clips. Main cystic artery and posterior branch controlled with clips. Gallbladder extracted
at epigastric port site.
Plan: Low-fat diet as tolerated postoperatively
Therapeutic anticoagulation�Eliquis should be held for 72 hours postop -> okay to resume Friday08/10/2024
Patient's updated postoperatively in the surgical waiting area
--- NOTE | 2024-08-07 12:00 | PTCARENOTE ---
Pt was received from PACU at 1200. Pt is drowsy but wakes up to verbal stimulus. VSS. ABX infusing on arrival. 4 lap sites on abdomen, glued close, no drainage. Pt resting in bed, at the bedside.
[2024-08-07] MEDS: PROTONIX 40 MG PO (12:04)
[2024-08-07] MEDS: FLOMAX 0.4 MG PO (12:04)
[2024-08-07] MEDS: LOW STRENGTH ASPIRIN 81 MG PO (12:04)
[2024-08-07] MEDS: TOPROL XL 50 MG PO (12:05)
[2024-08-07] MEDS: PACERONE 200 MG PO (12:05)
[2024-08-07] MEDS: LR 1000 IV (12:33)
--- NOTE | 2024-08-07 12:34 | W.PN.HOSP.TC ---
Today's Communication/Plan
-
Resume diet
Discharge
Assessment / Plan
Assessment / Plan
Gen-AAOx3, NAD, obese
HEENT-NC, AT, anicteric, clear oral mm
Neck-supple
CV-reg, no M, +S1/S2
Lungs-clear B/L
Abd-soft, NT, ND
Ext-no edema
Musculoskeletal-no cyanosis, clubbing
Skin-warm and dry
Neuro-grossly non-focal
Psych-calm, cooperative
Acute cholecystitis -stable after laparoscopic cholecystectomy today. Diet resumed. Possible discharge later today if he remains stable. Discussed with Dr. Franks.
Chronic hematuria -apparently had negative cystoscopy according to patient. Follows with Dr. Lopez. Check urinalysis. Does have small nonobstructing bilateral intrarenal calculi noted on previous CT.
Recent Enterococcus faecalis prosthetic valve endocarditis -currently on IV ampicillin, ceftriaxone until August 07 then will need long-term suppressive antibiotic therapy with doxycycline 100 mg twice daily. Discussed with Dr. Jordan. DC PICC
line prior to discharge.
CAD/CABG -04/28/2024, single-vessel bypass MERCEDES to LAD. Aspirin reduced to once daily, discussed with Dr. Solis.
Bioprosthetic AVR -04/28/2024.
Persistent atrial fibrillation -hold Eliquis until FridayAugust 10 as per surgical service. Discussed with cardiology (Dr. Solis), can reduce dose of amiodarone to once daily. He is scheduled to see Dr. Manzano next week.
Essential hypertension -hypertensive urgency on arrival, now improved. Continue metoprolol XL 50 mg twice daily.
Hyperlipidemia -atorvastatin.
BPH -tamsulosin.
Gout
Obesity due to excess calories
Full code
Dispo -possible discharge later today if stable. Updated at the bedside. Outpatient follow-up.
35-minute spent in discharge process.
Anticipated Discharge: Today
Subjective/Interval History
-
Date of Service: August 07, 2024
Patient seen and examined. Had surgery this morning, feels fine right now. Eager to go home tonight.
Objective Data
-
Labs:
Laboratory Results
08/07/24
06:10
WBC 5.4
Hgb 12.9 L
Hct 38.1 L
Plt Count 178
Sodium 142
Potassium 4.2
Chloride 102
Carbon Dioxide 31 H
BUN 12
Creatinine 1.1
Glucose 99
Calcium 9.2
Total Bilirubin 0.5
AST 54
ALT 60 H
Alkaline Phosphatase 65
Vital Signs:
Vital Signs
Temp Pulse Resp BP Pulse Ox
97.4 F 56 16 153/85 97
08/07/24 12:00 08/07/24 12:00 08/07/24 12:00 08/07/24 12:00 08/07/24 12:00
I&O
08/06/24 08/07/24 08/08/24
06:59 06:59 06:59
Intake Total 1728 / 1728 50 / 50
Balance 1728 / 1728 50 / 50
Review of Systems
-
History Source: Patient
All other systems: Reviewed and negative
--- NOTE | 2024-08-07 12:43 | W.DS.TRANS ---
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
-
Discharge Instructions:
Discharge Diagnosis/Procedures Acute cholecystitis
Diet Low Fat,As tolerated
Activity No strenuous activity
Driving Restrictions As prior to admission
Bathing Restrictions OK to Shower
Instructions:
Stand-Alone Forms:
Changes to Home Medications: Yes
Discharge Medications:
DC Medications w/original date entered in [employer]
allopurinol 300 mg tablet 300 mg PO QPM Gout 03/16/24
atorvastatin 80 mg tablet 80 mg PO QPM High Cholesterol 03/16/24
apixaban 5 mg tablet (Eliquis) 5 mg PO BID Blood clot prevention/tx #60 tabs 05/03/24
pantoprazole 40 mg tablet,delayed release 40 mg PO DAILY GI prophylaxis while on Eliquis #30 tabs 05/03/24
ascorbic acid (vitamin C) 500 mg tablet (Vitamin C) 500 mg PO DAILY Supplement 06/26/24
cyanocobalamin (vitamin B-12) 1,000 mcg tablet 1,000 mcg PO DAILY Supplement 06/26/24
famotidine 40 mg tablet 40 mg PO HS Gastrointestinal Issue 06/26/24
tamsulosin 0.4 mg capsule 0.4 mg PO DAILY Urinary Issue 06/26/24
acetaminophen 325 mg tablet 650 mg (2 x 325 mg) PO Q4HPRN PRN Mild Pain / Temp > 101 #0 tabs 07/01/24
digoxin 250 mcg (0.25 mg) tablet 250 mcg PO NOON #30 tabs 07/01/24
metoprolol succinate 50 mg tablet,extended release 24 hr 50 mg PO BID #60 tabs 07/01/24
amiodarone 200 mg tablet 200 mg PO DAILY #0 tabs 08/07/24
aspirin 81 mg chewable tablet 81 mg PO DAILY #0 tabs 08/07/24
doxycycline hyclate 100 mg tablet 100 mg PO BID #60 tabs 08/07/24
oxycodone 5 mg tablet 5 mg PO Q4HPRN PRN severe pain #15 tabs 11/30/24
Home Medication Changes
Amiodarone reduced to once daily.
Aspirin reduced to once daily.
Pending Results: No
[2024-08-07] MEDS: LANOXIN 250 MCG PO (13:13)
--- NOTE | 2024-08-07 13:20 | CM ---
CM met with Faustino and his at bedside to discuss discharge today. Faustino had VN services previously with [facility] for home IV abx and inquired if this would be resumed at discharge. We discussed plan for follow up visit with surgeon, and RN
does not anticipate need for any wound care s/p cholecystectomy.
IMM provided, signed by Faustino's per his request, signed form placed in chart.
Plan: Discharge to home with outpatient follow up. No needs identified.
--- NOTE | 2024-08-07 14:35 | PTCARENOTE ---
Pt tolerated his low fat diet well. Minimal upper abdominal pain after eating. Pain medicine offered, but pt feels like he does not need at this time. Pt was assisted to walk in the bathroom to urinate. Pt urinated 400ml. Sitting in the chair.
at the bedside.
== END 2024-08-07 16:19 | disposition home or self-care (01) | DRG 418 ==
LOC: 4 EAST ACU 04:08
PROVIDERS: Clinical Nurse Specialist Family Health; Radiology Diagnostic Radiology; ADMITTING PHYSICIAN Hospitalist; ATTENDING PHYSICIAN Hospitalist; CONSULT PHYSICIAN Internal Medicine Gastroenterology; CONSULT PHYSICIAN Surgery; EMERGENCY PHYSICIAN Student in an Organized Health Care Education/Training Program; FAMILY PHYSICIAN Student in an Organized Health Care Education/Training Program
PROC: BF101ZZ Fluoroscopy of Bile Ducts using Low Osmolar Contrast (ICD-10-PCS; 2024-08-07)
PROC: 0FT44ZZ Resection of Gallbladder, Percutaneous Endoscopic Approach (ICD-10-PCS; 2024-08-07)
DX: K80.00 Calculus of gallbladder with acute cholecystitis without obstruction (principal); I48.19 Other persistent atrial fibrillation; I48.92 Unspecified atrial flutter; I35.0 Nonrheumatic aortic (valve) stenosis; I10 Essential (primary) hypertension; M10.9 Gout, unspecified; N40.0 Benign prostatic hyperplasia without lower urinary tract symptoms; K21.00 Gastro-esophageal reflux disease with esophagitis, without bleeding; E78.00 Pure hypercholesterolemia, unspecified; I25.10 Atherosclerotic heart disease of native coronary artery without angina pectoris; N20.0 Calculus of kidney; R31.9 Hematuria, unspecified; E66.09 Other obesity due to excess calories; Z68.32 Body mass index [BMI] 32.0-32.9, adult; Z95.5 Presence of coronary angioplasty implant and graft; Z95.2 Presence of prosthetic heart valve; Z95.1 Presence of aortocoronary bypass graft; Z79.82 Long term (current) use of aspirin; Z79.01 Long term (current) use of anticoagulants; Z79.899 Other long term (current) drug therapy; Z79.2 Long term (current) use of antibiotics
CPT/HCPCS: 88304; 74300; 76000; 76700; 80053; 80162; 81003; 81015; 82248; 83690; 84484; 85025; 85027; 93005; 96374; 96375; 99285

== ENCOUNTER 2024-09-09 07:48 | Day surgery (SDC) | payer MEDICARE, SELFPAY ==
[2024-09-09] VITALS (16 sets, daily range): BP systolic 109–141; BP diastolic 55–85; BMI 31.9
[2024-09-09 09:04] LABS: Hematocrit 42.4 % (39.0-52.0); Hemoglobin 14.3 g/dL (13.0-18.0); Mean Corp Hgb Conc. 33.7 g/dL (33.0-37.0); Mean Corpuscular Volume 88.9 fL (80.0-94.0); Mean Platelet Volume 8.9 fL (7.4-10.4); Platelet Count 187 10^3/uL (130-400); Red Blood Cell Count 4.77 10^6/uL (4.70-6.10); Red Cell Dist. Width 14.5 % (11.5-14.5); White Blood Cell Count 5.7 10^3/uL (4.8-10.8)
[2024-09-09 09:07] LABS: INR 1.19; PT 15.7 Sec (11.4-14.6)
[2024-09-09 09:08] LABS: APTT 30.3 Sec (23.4-35.0)
[2024-09-09] MEDS: TYLENOL 1000 MG PO (09:09)
[2024-09-09 10:28] LABS: ALT (SGPT) 87 U/L (0-50); AST (SGOT) 64 U/L (17-59); Albumin 3.2 g/dl (3.5-5.0); Alkaline Phosphatase 75 U/L (38-126); Blood Urea Nitrogen 14 mg/dl (9-20); Carbon Dioxide 28 mmol/L (22-30); Chloride 106 mmol/L (98-107); Estimated Creatinine Clearance 73 ml/min; Glucose 99 mg/dl (70-99); Potassium 3.9 mmol/L (3.5-5.1); Sodium 138 mmol/L (135-145); Total Bilirubin 0.4 mg/dl (0.2-1.3); Total Protein 6.1 g/dl (6.3-8.2); eGFR > 60.00
[2024-09-09 12:12] LABS: ACT-LR - POC 339 Seconds (116-155)
[2024-09-09 12:38] LABS: ACT-LR - POC 339 Seconds (116-155)
--- NOTE | 2024-09-09 13:07 | ITS.CL.ABL ---
[facility] - Ablation
Ablation
Procedure Report:
AFIB ablation:
Mr. Su is a very pleasant 69 yr old gentleman with symptomatic persistent AF s/p AF ablation 2013 with PVI at [facility] who had recurrent atrial fibrillation and failed Amiodarone is recommended a redo AF/AFL ablation.
Date of the Procedure:
09/09/2024
Indications:
Persistent with recurrent atrial fibrillation/ atrial flutter
Pre-Operative Diagnosis:
Persistent with recurrent atrial fibrillation / Atrial flutter
Post-Operative Diagnosis:
Persistent with recurrent atrial fibrillation / Atrial flutter.
Procedure Performed:
Atrial fibrillation ablation with Pulsed-Field approach for pulmonary vein isolation
Typical atrial flutter with cavo tricuspid isthmus ablation
Performing Physician:
Emiliano Manzano MD
Assistants:
EP staff
Anesthesia:
See anesthesia records
Detailed Description of the Procedure:
Written informed consent was obtained from the patient after a full explanation of the risks and benefits of the procedure including the risks of sedation and anesthesia.
The patient was brought to the electrophysiology laboratory in stable condition in fasting state. Continuous electrocardiographic and hemodynamic monitoring was initiated.
The initial rhythm was atrial flutter.
The procedure site was meticulously prepared with surgical scrub and allowed to dry with no pooling. Sterile draping was applied to cover the procedure site. The image intensifier was draped with sterile bag and positioned over the patient. After
infusion of local anesthetic, vascular access was obtained under ultrasound guidance and sheaths were placed over guide wire as detailed below.
Sheath and Catheter Placement:
The following catheters / sheaths were placed
Sheaths:
��������� 17Fr steerable sheath (Faradrive�, [employer]) in right femoral
��������� 9Fr in right femoral vein
��������� 7Fr in right femoral vein
Catheters:
��������� LUNA HD Grid mapping catheter � at locations of RA, LA
��������� Farawave� PFA catheter
��������� ICE catheter -AcuNav - at locations of RA, SVC, and RV.
��������� Decapolar Bard catheter in RA and CS
Intracardiac ECHO:
An 8-Indonesian AcuNav intracardiac ECHO (ICE) probe was advanced through the 9-Indonesian sheath in the right femoral vein into the right atrium under fluoroscopic and ICE ultrasound image guidance and a baseline ECHO study was performed. The left atrial
size was dilated. There was moderate tricuspid regurgitation. The aortic valve was grossly normal. There was reduced left ventricular systolic functions. There is trace pericardial effusion. All the four veins were identified and has flow
identified. �
There was prominent Chiari network and Eustachian ridge noted.
During the procedure, ICE was used for monitoring of complications, guidance of trans-septal puncture, monitor the catheter position and tracking ablation lesions. No change in the pericardial space noted throughout the procedure.
Electroanatomic mapping of the right atrium:
A pig tail guidewire was advanced through the 8-Indonesian sheath in the right femoral vein into the superior vena cava under fluoroscopic and ICE guidance. The 8-Indonesian sheath was exchanged for an Faradrive sheath which was advanced into the superior
vena cava.
Using the HD Grid catheter advanced through Faradrive sheath into the right atrium, an electroanatomic map (EAM) of the right atrium was created using LUNA mapping system with HD Grid.
Ablation # 1: Typical Atrial Flutter Ablation:
Patient was noted to be in atrial flutter 310 ms CL. The CS was showing concentric activation. The Entrainment showed the proximal CS was close to the circuit but the distal CS was out. The EAM of the tachycardia was created that showed typical
counter clockwise flutter.
With anticipation of pulsed field energy deliver at the CTI, a 0.4 mg of Nitroglycerin was injected into the RA. �
The ablation was performed using Farawave� PFA catheter from the tricuspid annulus to the IVC ridge. The first application was done in [place] formation placing the ablation catheter on the tricuspid isthmus to with ICE visualization. With first
ablation, the flutter terminated into sinus rhythm. Further ablation lesions were placed with the �Flower� shape on the CTI to the Eustachian ridge.
��������������� -Bidirectional block was confirmed across the CTI line with differential pacing.
��������������� -Double potentials were spaced greater than 112 msec apart.
��������������� -The conduction time across the CTI line from proximal CS pacing was 171 msec.
��������������� -EAM of the right atrium was obtained with coronary sinus pacing and showed a line of block at the CTI.
��������������� -The time interval just lateral to the ablation lesions was 171 msec and the lateral wall was 102 msec
��������������� - All these maneuvers confirmed the block at the CTI line.
- Post ablation HV interval was unchanged at 45msec
Then attention was given to atrial fibrillation ablation.
Trans-septal Puncture:
Heparin was initiated and infused to maintain appropriate ACT. A J-tipped guidewire was advanced through the 8-Indonesian sheath in the right femoral vein into the superior vena cava under fluoroscopic and ICE guidance. The 9-Indonesian sheath was exchanged
for a Faradrive sheath which was advanced into the superior vena cava. A transseptal RF pigtail via Faradrive connect system was utilized to perform the trans-septal puncture. The apparatus was withdrawn until it was in contact with the fossa
ovalis. The position was adjusted based on fluoroscopy and ultrasound images from ICE. Under fluoroscopic, hemodynamic and ICE ultrasound guidance, left atrium was cannulated by applying RF energy. Once atrial septum was cannulated, the pigtail wire
was advanced through the needle into the left atrium. The guide wire was advanced into the left superior pulmonary vein. Both the sheath and the dilator was advanced into the left atrium. The dilator with the needle was withdrawn. Blood was
aspirated from the Faradrive sheath and arterial blood confirmed. The sheath was flushed. Saline injection noted into the left atrium on ICE. The mapping catheter was advanced in the sheath into the left pulmonary vein. Left atrial pressure was
measured.
3D Electroanatomic Mapping:
Using the HD Grid catheter advanced through sheath into the left atrium, an electroanatomic map (EAM) of the left atrium was created using Alset Wellen mapping system. The map was used for localization of catheter position and tacking of ablation
lesions.
The EAM of the left atrium showed 4 pulmonary veins with all 4 veins electrically reconnected to the LA. It showed only little low voltage in the LA.
The LA was dilated in size.
Following the EAM, preparation were made for ablation.
Ablation:
Ablation # 1: Pulmonary vein Isolation:
Glycopyrrolate 0.2 mg was given prior to the placement of ablation. Using Faradrive pulsed wave ablation system, pulmonary vein isolation was achieved. First the Yazmin drive ablation catheter was placed in the LSPV and ostial ablation lesions were
performed in �[place] formation� in the PV ostium circumferentially. Then the catheter was placed on the antral location in �Flower formation� and lesions were placed circumferentially on the antrum of the vein.
In the similar fashion, the LIPV were isolated.
Then the catheter was moved to right sided veins. The ostial and antral ablations were placed as noted above to the RSPV and RIPV.
Post ablation Electroanatomic mapping:
Once ablation was completed, the EAM of the LA was done again in sinus rhythm with excellent demarcation of LA myocardium and isolated antral tissue.
The ABRAHAM had healthy signals and was not isolated.
EPS and Confirmation of the PVI and bidirectional block:
Following achievement of entrance block at the pulmonary veins, pacing from the HD catheter in each of the four veins at 10 milliamps for 2 milliseconds showed entrance and exit block. All PVI were rechecked at the end of the case and remained
isolated with dissociated and local capture with pacing. Entrance and exit block were demonstrated in all veins.
Procedure End
ICE study was done again that showed no change in epicardial accumulation. No complications noted.
Following the completion of the EP study, catheters were removed. Protamine 30 mg was given at the end of the procedure and ACT was checked repeatedly. The sheaths were removed and hemostasis achieved with VASCADE and manual compression after
acceptable ACT is achieved.
Left atrial Pressure:
Pre-Procedure: Mean LA pressure was 15mmHg
Post-Procedure: Mean LA pressure was 15mmHg
Post-Procedure: Mean LR pressure was 9mmHg
Fluoro time:
9.1 min / DAP 5.6
Estimated Blood loss:
<10 cc
Specimens Removed:
None.
Implants / Devices:
None
Urine output:
None
Packs / Drains/ Tubes:
None
Instrument / Sponge Count Correct:
Yes
Complications of the Procedure:
None
Condition of Patient at Time of Transfer:
Hemodynamically stable with no neurological or vascular compromise.
Summary:
Successful atrial fibrillation ablation with Pulsed Field approach for pulmonary vein isolation and typical cavotricuspid isthmus dependent flutter ablation
Figures from the Procedure:
Figure 1: The electroanatomic mapping (EAM) of the left atrium with bipolar voltage (purple indicates normal electrical activity with mccullough as no myocardial muscle electric activity indicating a line of block or scar.
--- NOTE | 2024-09-09 15:59 | W.PN.UPDATE ---
Update Note
Progress Note Update
69 yo WM s/p PVI (same day). He denies cp, sob, delvin diet, EKG SB 1deg AVB, R fem site VASCADE c/d/i no HT. He will resume Eliquis tonight after 7pm. He will stop digoxin and continue amiodarone and metoprolol. Activity restrictions reviewed. He will
f/u [facility] in 2 weeks. He is for d/c home after 440pm if groin stable and voiding.
== END 2024-09-09 16:40 | disposition home or self-care (01) ==
LOC: CATH 07:48
PROVIDERS: ATTENDING PHYSICIAN Internal Medicine Cardiovascular Disease; FAMILY PHYSICIAN Student in an Organized Health Care Education/Training Program; OTHER PHYSICIAN Internal Medicine Cardiovascular Disease
DX: I48.19 Other persistent atrial fibrillation (principal); I48.3 Typical atrial flutter; I25.10 Atherosclerotic heart disease of native coronary artery without angina pectoris; K21.9 Gastro-esophageal reflux disease without esophagitis; I45.10 Unspecified right bundle-branch block; I35.0 Nonrheumatic aortic (valve) stenosis; Z95.1 Presence of aortocoronary bypass graft; Z79.899 Other long term (current) drug therapy; Z79.2 Long term (current) use of antibiotics; Z79.82 Long term (current) use of aspirin; Z79.01 Long term (current) use of anticoagulants; Z98.890 Other specified postprocedural states
CPT/HCPCS: C1894; C1769; C1759; C1892; 80053; 85027; 85347; 85610; 85730; 86850; 86900; 86901; 93005; 93655; 93656; C1730; C1732; C1733; C1760; C1766

== ENCOUNTER → 2025-03-08 06:56 | Outpatient (REF) | payer MEDICARE, SELFPAY | LOC: RSP 06:56 | PROVIDERS: ATTENDING PHYSICIAN Nurse Practitioner; FAMILY PHYSICIAN Student in an Organized Health Care Education/Training Program | DX: I48.0 Paroxysmal atrial fibrillation (principal); R06.09 Other forms of dyspnea; Z79.899 Other long term (current) drug therapy | CPT/HCPCS: 94727; 94729; 88738; 94010 ==